=== PATIENT | female | born 1940 | race Caucasian/White ===

== ENCOUNTER → 2016-07-16 | Outpatient (CLI) | payer OTHER ==
[~2016-07-16] MED LIST: ATOR10TA88 PO; CPR500 PO; DONE1TAB26 PO; LEVO125T72 PO; MELO7.5T5 PO; MEMA10TA PO; METF1000 PO; RMR15 PO
[2016-07-16 16:41] LABS: HEMATOCRIT 41.2 % (37-47); MEAN CORPUSCULAR HEMOGLOBIN 31.2 pg (25-34); MEAN CORPUSCULAR HGB CONC 33.5 g/dl (32-36); MEAN PLATELET VOLUME 10.4 fL (7.4-10.4); PLATELET COUNT 223 K/uL (130-400); RED BLOOD COUNT 4.43 M/uL (4.2-5.4)
[2016-07-16 16:50] LABS: ALT/SGPT 21 U/L (12-78); AST/SGOT 12 U/L (15-37); BLOOD UREA NITROGEN 13 mg/dl (7-18); BUN/CREATININE RATIO 18.9 (10-20); CALCIUM 9.4 mg/dl (8.5-10.1); CARBON DIOXIDE 29 mmol/L (21-32); CHLORIDE 107 mmol/L (98-107); CREATININE 0.71 mg/dl (0.60-1.20); GLUCOSE 111 mg/dl (70-99); POTASSIUM 4.5 mmol/L (3.5-5.1); SODIUM 142 mmol/L (136-145)
[2016-07-16 16:59] LABS: ALB/GLOB RATIO 1.1 (0.9-2); ALKALINE PHOSPHATASE 87 U/L (45-117); CHOLESTEROL 210 mg/dl (0-200); CHOLESTEROL/HDL RATIO 2.6; HDL CHOLESTEROL 81 mg/dl; LDL CHOLESTEROL CALCULATED 90 mg/dl; TRIGLYCERIDES 195 mg/dl (0-150); VERY LOW DENSITY LIPOPROT CALC 39 mg/dl
[2016-07-17 06:31] LABS: ESTIMATED AVERAGE GLUCOSE 157 mg/dl; HA1C FLAG Normal (Normal)
== END | disposition home or self-care (01) ==
LOC: C.LABBFT 16:28
PROVIDERS: ATTEND Internal Medicine
DX: E03.9 Hypothyroidism, unspecified (principal); E78.5 Hyperlipidemia, unspecified; E11.9 Type 2 diabetes mellitus without complications

== ENCOUNTER → 2016-10-29 | Outpatient (CLI) | payer OTHER ==
[~2016-10-29] MED LIST changes: +ATOR10TA82 PO; -ATOR10TA88 PO
[2016-10-29 18:41] LABS: URINE APPEARANCE CLEAR (CLEAR); URINE BILIRUBIN NEG (NEG); URINE COLOR YELLOW; URINE NITRITE NEG (NEG); URINE SPECIFIC GRAVITY 1.007 (1.000-1.030); UROBILINOGEN NEG (NEG)
[2016-10-29 18:50] LABS: MANUAL MICROSCOPIC REQUIRED? NO; REVIEW REQ? NO
== END | disposition home or self-care (01) ==
LOC: C.LABSPEC 17:58
PROVIDERS: ATTEND Physician Assistant Medical
DX: N39.0 Urinary tract infection, site not specified (principal)

== ENCOUNTER → 2017-04-13 | Outpatient (CLI) | payer OTHER ==
[~2017-04-13] MED LIST changes: -ATOR10TA82 PO; +ATOR10TA88 PO
[2017-04-13 17:48] LABS: URINE APPEARANCE TURBID (CLEAR); URINE BILIRUBIN NEG (NEG); URINE COLOR DK YELLOW; URINE EPITHELIAL CELL AUTO >30 /lpf (0-5); URINE NITRITE NEG (NEG); URINE SPECIFIC GRAVITY 1.036 (1.000-1.030); UROBILINOGEN NEG (NEG); ZZUR CULT IF INDIC CLEAN CATCH YES
[2017-04-13 17:57] LABS: MANUAL MICROSCOPIC REQUIRED? NO; REVIEW REQ? YES
[2017-04-13 17:57] LABS: ALT/SGPT 25 U/L (12-78); BLOOD UREA NITROGEN 9 mg/dl (7-18); BUN/CREATININE RATIO 9.9 (10-20); CALCIUM 9.6 mg/dl (8.5-10.1); CARBON DIOXIDE 25 mmol/L (21-32); CHLORIDE 104 mmol/L (98-107); CREATININE 0.87 mg/dl (0.60-1.20); GLUCOSE 243 mg/dl (70-99); POTASSIUM 4.3 mmol/L (3.5-5.1); SODIUM 139 mmol/L (136-145)
[2017-04-13 18:00] LABS: ALKALINE PHOSPHATASE 106 U/L (45-117); AST/SGOT 20 U/L (15-37)
== END | disposition home or self-care (01) ==
LOC: C.LABBFT 11:47
PROVIDERS: ATTEND Physician Assistant Medical
DX: F44.89 Other dissociative and conversion disorders (principal)

== ENCOUNTER → 2017-04-16 | Outpatient (CLI) | payer OTHER | END | disposition home or self-care (01) | LOC: C.LABBFT 13:07 | PROVIDERS: ATTEND Internal Medicine | DX: N39.0 Urinary tract infection, site not specified (principal); E11.9 Type 2 diabetes mellitus without complications ==

== ENCOUNTER → 2017-04-28 | Outpatient (CLI) | payer OTHER ==
--- NOTE | 2017-04-28 13:45 | DIAGNOSTIC IMAGING REPORT ---
VENOUS DOPP LOWER EXT UNILAT HISTORY: 76 years-old Female M79.89 Left leg swellingLEFT LEG per pt's [id number] acute left leg swelling COMPARISON: None available TECHNIQUE: Multiple real-time sonographic images of the left lower extremity deep venous system was obtained assessing grayscale appearance, color and spectral flow. FINDINGS: There is normal compressibility, flow, augmentation and phasicity of the left lower extremity deep venous system. IMPRESSION: No sonographic evidence of deep venous thrombosis within the left lower extremity. The above report was generated using voice recognition software. It may contain grammatical, syntax or spelling errors. Electronically signed by: Markie García M.D. 04/28/2017 1:43 PM Dictated Date/Time: 04/28/2017 1:42 PM
== END | disposition home or self-care (01) ==
LOC: C.ULTR 13:13
PROVIDERS: ATTEND Internal Medicine
DX: M79.89 Other specified soft tissue disorders (principal)

== ENCOUNTER → 2017-05-05 | Outpatient (CLI) | payer OTHER ==
[2017-05-05 17:18] LABS: URINE APPEARANCE CLOUDY (CLEAR); URINE BILIRUBIN NEG (NEG); URINE COLOR YELLOW; URINE EPITHELIAL CELL AUTO >30 /lpf (0-5); URINE NITRITE POS (NEG); URINE SPECIFIC GRAVITY 1.039 (1.000-1.030); UROBILINOGEN NEG (NEG)
[2017-05-05 17:37] LABS: MANUAL MICROSCOPIC REQUIRED? NO; REVIEW REQ? NO
== END | disposition home or self-care (01) ==
LOC: C.LAB 14:44
PROVIDERS: ATTEND Internal Medicine
DX: N39.0 Urinary tract infection, site not specified (principal)

== ENCOUNTER 2017-07-27 14:33 | Emergency (ER) | payer OTHER ==
[~2017-07-27 14:33] MED LIST changes: +ATOR10TA82 PO; -ATOR10TA88 PO; -MELO7.5T5 PO
[2017-07-27 14:41] VITALS: TEMP 36.7
--- NOTE | 2017-07-27 14:49 | EMERGENCY ROOM VISIT NOTE ---
History Report prepared by Adriana: Tam Kay Under the Supervision of: Dr. Yaritza Kaplan M.D. First contact with patient: 14:37 Chief Complaint: URINARY SYMPTOMS Stated Complaint: POSS. UTI History of Present Illness The patient is a 76 year old female diabetic with a history of Alzheimer's who presents to the Emergency Room with a worsening altered mental status since this morning. Per the patient's caregiver, the patient was hard to wake up this morning. The patient would open her eyes but would not respond to anything. However, the patient is nonverbal at baseline. She was noted to intermittently jerk her extremities. When she did awaken more, she became "extremely combative ". Per the patient's family, the patient had a UTI the beginning of last year, but the patient was nothing like she has been today. The patient's caregiver was unable to give the patient any of her medications today, because the patient has not been cooperative to drink or eat anything. The patient was also noted to be completely saturated in urine and stool, but the patient is normally incontinent. Any recent falls were denied on behalf of the patient. The patient has no cancer history. Source of History: family, caregiver Onset: This morning Position: other (global - AMS) Symptom Intensity: hard to arouse but that is baseline Quality: other (became combative at staff) Timing: worsening Note: Associated symptoms: Recent falls denied. Review of Systems ROS limited secondary to patient's mental status. Past Medical & Surgical Medical Problems: (1) Altered mental status (2) Diabetes (3) Influenza A (4) UTI (urinary tract infection) Surgical Problems: (1) S/P hernia repair Family History Diabetes mellitus Social History Smoking Status: Never Smoker Drug Use: none Marital Status: Housing Status: lives with significant other Occupation Status: retired Current/Historical Medications Scheduled Atorvastatin (Lipitor), 10 MG PO DAILY Calcium Carbonate-Vitamin D W/ (Caltrate 600 Plus), 1 TAB PO BID Donepezil Hydrochloride (Donepezil Hcl), 10 MG PO DAILY Gabapentin (Gabapentin), 300 MG PO HS Levothyroxine Sodium (Synthroid), 125 MCG PO DAILY Meloxicam (Mobic), 7.5 MG PO DAILY Memantine Hcl (Namenda), 10 MG PO BID Metformin Hcl (Glucophage), 1,000 MG PO QAM Scheduled PRN Lorazepam (Lorazepam), 0.5 MG PO Q6 PRN for Anxiety Olanzapine (Zyprexa Zydis Odt), 2.5 MG PO BID PRN for agitation Tramadol (Ultram), 50 MG PO Q6 PRN for Pain Allergies Coded Allergies: Sulfa Antibiotics (Verified Allergy, Mild, "SULFA DRUGS": RASH, 03/31/16) Physical Exam Vital Signs Date Time Temp Pulse Resp B/P (MAP) Pulse Ox O2 Delivery O2 Flow Rate FiO2 07/27/17 18:18 86 20 167/73 96 Room Air 07/27/17 17:00 76 20 146/90 98 Room Air 07/27/17 16:13 90 07/27/17 15:55 92 20 151/77 97 Room Air 07/27/17 14:41 36.7 73 18 151/77 97 Room Air Physical Exam Vital signs reviewed. General: Chronically ill-appearing 76 year old female, elderly, nonverbal, moans , unable to follow commands, will not cooperate with exam. HEENT: No scleral icterus, PERRLA, neck supple. Atraumatic. Cardiovascular: Regular rate and rhythm, no extra sounds. Pulmonary: Clear to auscultation bilaterally, normal work of breathing. Abdomen: Soft, nontender, nondistended, positive bowel sounds. Musculoskeletal: Atraumatic, no peripheral edema. Neurologic: Patient is nonverbal, moans, unable to follow commands. Skin: Warm, dry, no rash Medical Decision & Procedures ER Provider Diagnostic Interpretation: Radiology results as stated below per my review and radiologist interpretation: CHEST ONE VIEW PORTABLE CLINICAL HISTORY: Altered mental status. COMPARISON STUDY: Chest radiograph March 28, 2016. FINDINGS: Lung volumes are at the lower limits of normal. There is no pneumothorax or pleural effusion. There is no consolidation to suggest pneumonia. Moderate cardiomegaly is noted. IMPRESSION: 1. No acute cardiopulmonary findings. 2. Moderate cardiomegaly. Electronically signed by: Wood Bennett M.D. 07/27/2017 3:20 PM Dictated Date/Time: 07/27/2017 3:[address] HEAD WITHOUT CONTRAST (CT) CLINICAL HISTORY: Acute change in mental status COMPARISON STUDY: 03/29/2016 TECHNIQUE: Axial CT of the brain is performed from the vertex to the skull base. IV contrast was not administered for this examination. A dose lowering technique was utilized adhering to the principles of ALARA. CT DOSE: 1228.53 mGy.cm FINDINGS: No intra or extra-axial mass lesions are visualized. There is no CT evidence of acute cortical infarction. There is no evidence of midline shift. There is no acute hemorrhage. No calvarial fractures are visualized. There are patchy white matter hypodensities likely on a small vessel basis. There is no evidence of pathologic ventricular dilatation. There is no evidence of acute sinusitis IMPRESSION: No acute intracranial findings Electronically signed by: Vijay Jc M.D. 07/27/2017 4:58 PM Dictated Date/Time: 07/27/2017 4:57 PM Laboratory Results 07/27/17 15:20 Red Blood Count 4.44, Mean Corpuscular Volume 94.4, Mean Corpuscular Hemoglobin 31.5, Mean Corpuscular Hemoglobin Concent 33.4, Mean Platelet Volume 10.3, Neutrophils (%) (Auto) 57.4, Lymphocytes (%) (Auto) 31.5, Monocytes (%) (Auto) 8.6, Eosinophils (%) (Auto) 1.7, Basophils (%) (Auto) 0.4, Neutrophils # (Auto) 4.39, Lymphocytes # (Auto) 2.41, Monocytes # (Auto) 0.66, Eosinophils # (Auto) 0.13, Basophils # (Auto) 0.03 07/27/17 15:20 Test 07/27/17 15:20 07/27/17 17:10 White Blood Count 7.65 K/uL (4.8-10.8) Red Blood Count 4.44 M/uL (4.2-5.4) Hemoglobin 14.0 g/dL (12.0-16.0) Hematocrit 41.9 % (37-47) Mean Corpuscular Volume 94.4 fL (80-100) Mean Corpuscular Hemoglobin 31.5 pg (25-34) Mean Corpuscular Hemoglobin Concent 33.4 g/dl (32-36) Platelet Count 196 K/uL (130-400) Mean Platelet Volume 10.3 fL (7.4-10.4) Neutrophils (%) (Auto) 57.4 % Lymphocytes (%) (Auto) 31.5 % Monocytes (%) (Auto) 8.6 % Eosinophils (%) (Auto) 1.7 % Basophils (%) (Auto) 0.4 % Neutrophils # (Auto) 4.39 K/uL (1.4-6.5) Lymphocytes # (Auto) 2.41 K/uL (1.2-3.4) Monocytes # (Auto) 0.66 K/uL (0.11-0.59) Eosinophils # (Auto) 0.13 K/uL (0-0.5) Basophils # (Auto) 0.03 K/uL (0-0.2) RDW Standard Deviation 41.7 fL (36.4-46.3) RDW Coefficient of Variation 12.2 % (11.5-14.5) Immature Granulocyte % (Auto) 0.4 % Immature Granulocyte # (Auto) 0.03 K/uL (0.00-0.02) Anion Gap 6.0 mmol/L (3-11) Estimated GFR () 102.2 Estimated GFR (Non- 88.2 BUN/Creatinine Ratio 9.8 (10-20) Calcium Level 9.7 mg/dl (8.5-10.1) Magnesium Level 1.8 mg/dl (1.8-2.4) Total Bilirubin 0.6 mg/dl (0.2-1) Direct Bilirubin 0.2 mg/dl (0-0.2) Aspartate Amino Transf (AST/SGOT) 17 U/L (15-37) Alanine Aminotransferase (ALT/SGPT) 27 U/L (12-78) Alkaline Phosphatase 96 U/L (45-117) Total Protein 6.7 gm/dl (6.4-8.2) Albumin 3.4 gm/dl (3.4-5.0) Thyroid Stimulating Hormone (TSH) 0.020 uIu/ml (0.300-4.500) Free Thyroxine 1.57 ng/dl (0.80-1.60) Urine Color YELLOW Urine Appearance CLEAR (CLEAR) Urine pH 5.5 (4.5-7.5) Urine Specific [place] 1.012 (1.000-1.030) Urine Protein NEG (NEG) Urine Glucose (UA) NEG (NEG) Urine Ketones NEG (NEG) Urine Occult Blood NEG (NEG) Urine Nitrite NEG (NEG) Urine Bilirubin NEG (NEG) Urine Urobilinogen NEG (NEG) Urine Leukocyte Esterase NEG (NEG) Laboratory results per my review. Medications Administered Medications (Trade) Dose Ordered Sig/Ronit Route Start Time Stop Time Status Last Admin Dose Admin Haloperidol Lactate (Haldol Inj) 2.5 mg NOW STAT IV 07/27/17 15:28 07/27/17 15:30 DC 07/27/17 15:35 2.5 MG Lorazepam (Ativan Inj) 0.5 mg NOW STAT IV 07/27/17 15:28 07/27/17 15:30 DC 07/27/17 15:36 0.5 MG Olanzapine (Zyprexa Tab) 2.5 mg NOW STAT PO 07/27/17 17:57 07/27/17 18:00 DC 07/27/17 18:15 2.5 MG ECG Indication: altered mental status Rate (beats per minute): 66 Rhythm: normal sinus Findings: no acute ischemic change, left axis deviation, no ectopy, other ( poor quality baseline for interpretation) ED Course 1442: Past medical records reviewed. The patient was evaluated in room B2. A limited history and physical examination was performed. 1528: Ordered Ativan Inj 0.5 mg IV, Haldol Inj 2.5 mg IV. 1755: I discussed the patient with Dr. Davis - [facility] - he recommend Zyprexa 2.5 mg PO/BID and he will see the patient in the office. 1757: Ordered Zyprexa Tab 2.5 mg PO. 1800: Upon reevaluation, the patient appeared to be resting comfortably. I discussed findings with her family and caregiver. They verbalized agreement of the treatment plan. The patient was discharged home. Medical Decision Differential diagnosis: Etiologies such as metabolic, infection, hypoglycemia, electrolyte abnormalities , cardiac sources, intracerebral event, toxicologic, neurologic, as well as others were entertained. This patient was evaluated and appeared to be in no significant distress. Patient was evaluated but unable to cooperate with exam largely. CT scan of the head was performed and is negative for acute intracranial abnormality. Laboratory work and urinalysis are unrevealing. The patient did require IV Haldol 2.5 mg and IV Ativan 0.5 mg with significant improvement in agitation. After several hours in the emergency department, the patient seemed to be improved. Patient's daughter seemed comfortable with the plan for discharge to home. She has a caregiver coming in this evening. Patient was discussed with the PCP, Dr. Davis. He has recommended Zyprexa 2.5 mg by mouth twice a day when necessary. Patient was given 1 dose now in the emergency department. I did express the plan to the patient's daughter who agrees. If symptoms do not improve or she becomes too difficult to manage at home, they will return to the ER for possible Mary psych evaluation. Medication Reconcilliation Current Medication List: was personally reviewed by me Blood Pressure Screening Patient's blood pressure: Elevated blood pressure Blood pressure disposition: Elevated BP felt to be situational Consults Time Called: 1749 Consulting Physician: Dr. [facility] family medicine Returned Call: [phone] I discussed the patient with Dr. Susan PATINO family medicine - he recommend Zyprexa 2.5 mg PO/BID and he will see the patient in the office. Impression Primary Impression: Agitation Scribe Attestation The scribe's documentation has been prepared under my direction and personally reviewed by me in its entirety. I confirm that the note above accurately reflects all work, treatment, procedures, and medical decision making performed by me. Departure Information Dispostion Home / Self-Care Prescriptions Olanzapine (Zyprexa Zydis Odt) 5 Mg Jaron 2.5 MG PO BID Y for agitation, #30 JARON Prov: Yaritza Kaplan M.D. 07/27/17 Referrals Asim Davis M.D. (PCP) Patient Instructions My [facility] Additional Instructions Diagnosis: Agitation Zyprexa 2.5 mg (1/2 tab) twice daily as needed for agitation. This medication will dissolve in the mouth. Follow-up with Dr. Davis's office this week for reevaluation. Return to the ER for worsening of symptoms or any medical concerns.
--- NOTE | 2017-07-27 15:22 | DIAGNOSTIC IMAGING REPORT ---
CHEST ONE VIEW PORTABLE CLINICAL HISTORY: Altered mental status. COMPARISON STUDY: Chest radiograph March 28, 2016. FINDINGS: Lung volumes are at the lower limits of normal. There is no pneumothorax or pleural effusion. There is no consolidation to suggest pneumonia. Moderate cardiomegaly is noted. IMPRESSION: 1. No acute cardiopulmonary findings. 2. Moderate cardiomegaly. Electronically signed by: Wood Bennett M.D. 07/27/2017 3:20 PM Dictated Date/Time: 07/27/2017 3:20 PM
[2017-07-27] MEDS ORDERED: HALOPERIDOL LACTATE 5 MG/ML 1 ML VIAL IV STA (15:28)
[2017-07-27] MEDS ORDERED: LORAZEPAM 2 MG/ML 1 ML VIAL IV STA (15:28)
[2017-07-27 15:48] LABS: BASO % 0.4 %; BASO ABS # 0.03 K/uL (0-0.2); EOS % 1.7 %; EOS ABS # 0.13 K/uL (0-0.5); HEMATOCRIT 41.9 % (37-47); IG# 0.03 K/uL (0.00-0.02); LYMPH % 31.5 %; LYMPH ABS # 2.41 K/uL (1.2-3.4); MEAN CELL VOLUME 94.4 fL (80-100); MEAN CORPUSCULAR HEMOGLOBIN 31.5 pg (25-34); MEAN CORPUSCULAR HGB CONC 33.4 g/dl (32-36); MEAN PLATELET VOLUME 10.3 fL (7.4-10.4); MONO % 8.6 %; MONO ABS # 0.66 K/uL (0.11-0.59); NEUT % 57.4 %; NEUT ABS # 4.39 K/uL (1.4-6.5); PLATELET COUNT 196 K/uL (130-400); RED CELL DISTRIBUTION WIDTH CV 12.2 % (11.5-14.5); RED CELL DISTRIBUTION WIDTH SD 41.7 fL (36.4-46.3); WHITE BLOOD COUNT 7.65 K/uL (4.8-10.8)
[2017-07-27] MEDS ORDERED: TRAM-10 PO (16:03)
[2017-07-27] MEDS ORDERED: METF-384 PO (16:03)
[2017-07-27] MEDS ORDERED: GABA1CAP4 PO (16:03)
[2017-07-27] MEDS ORDERED: ATV5X PO (16:03)
[2017-07-27] MEDS ORDERED: CALCTAB7 PO (16:03)
[2017-07-27] MEDS ORDERED: SYN125 PO (16:03)
[2017-07-27 16:13] LABS: ALBUMIN 3.4 gm/dl (3.4-5.0); ALT/SGPT 27 U/L (12-78); AST/SGOT 17 U/L (15-37); BLOOD UREA NITROGEN 6 mg/dl (7-18); CALCIUM 9.7 mg/dl (8.5-10.1); CARBON DIOXIDE 31 mmol/L (21-32); CREATININE 0.62 mg/dl (0.60-1.20); GLUCOSE 173 mg/dl (70-99); POTASSIUM 4.3 mmol/L (3.5-5.1); SODIUM 142 mmol/L (136-145)
[2017-07-27 16:24] LABS: ALKALINE PHOSPHATASE 96 U/L (45-117); TOTAL PROTEIN 6.7 gm/dl (6.4-8.2)
--- NOTE | 2017-07-27 16:59 | DIAGNOSTIC IMAGING REPORT ---
CT HEAD WITHOUT CONTRAST (CT) CLINICAL HISTORY: Acute change in mental status COMPARISON STUDY: 03/29/2016 TECHNIQUE: Axial CT of the brain is performed from the vertex to the skull base. IV contrast was not administered for this examination. A dose lowering technique was utilized adhering to the principles of ALARA. CT DOSE: 1228.53 mGy.cm FINDINGS: No intra or extra-axial mass lesions are visualized. There is no CT evidence of acute cortical infarction. There is no evidence of midline shift. There is no acute hemorrhage. No calvarial fractures are visualized. There are patchy white matter hypodensities likely on a small vessel basis. There is no evidence of pathologic ventricular dilatation. There is no evidence of acute sinusitis IMPRESSION: No acute intracranial findings Electronically signed by: Vijay Jc M.D. 07/27/2017 4:58 PM Dictated Date/Time: 07/27/2017 4:57 PM
[2017-07-27] MEDS ORDERED: OLANZAPINE 2.5 MG TAB PO STA (17:57)
[2017-07-27] MEDS ORDERED: OLAN5TAB3 PO ×2 (18:11→18:27)
[2017-07-27 18:18] VITALS: BP 167/73; PULSE 86; O2SAT 96
[2017-07-27] MEDS ORDERED: MELO7.5T5 PO (23:02)
== END 2017-07-27 18:32 | disposition home or self-care (01) ==
LOC: EDBD 14:33 → C.EDB 14:34
DX: G30.9 Alzheimer's disease, unspecified (principal); F02.80 Dementia in other diseases classified elsewhere, unspecified severity, without behavioral disturbance, psychotic disturbance, mood disturbance, and anxiety; E11.9 Type 2 diabetes mellitus without complications; R03.0 Elevated blood-pressure reading, without diagnosis of hypertension; Z79.84 Long term (current) use of oral hypoglycemic drugs; Z83.3 Family history of diabetes mellitus

== ENCOUNTER → 2017-08-23 | Outpatient (CLI) | payer OTHER ==
[~2017-08-23] MED LIST changes: +ASPEC81 PO; +ATV5X PO; +CALCTAB7 PO; +CIPR250T3 PO; -CPR500 PO; +GABA-1219 PO; -LEVO125T72 PO; +MELO7.5T5 PO; +MEMA1TAB4 PO; +METF-384 PO; -METF1000 PO; +OLAN5TAB3 PO; +QUET1TAB7 PO; +QUET1TAB91 PO; -RMR15 PO; +SYN125 PO; +TRAM-10 PO
== END | disposition home or self-care (01) ==
LOC: C.LAB 13:28
PROVIDERS: ATTEND Internal Medicine
DX: N39.0 Urinary tract infection, site not specified (principal)

== ENCOUNTER 2017-08-27 10:23 | Inpatient (IN) | payer OTHER ==
[~2017-08-27] VITALS: Ht 152.4 cm; Wt 77.9 kg
[~2017-08-27 10:23] MED LIST changes: -ASPEC81 PO; -ATOR10TA82 PO; -CIPR250T3 PO; -GABA-1219 PO; -MELO7.5T5 PO; -MEMA1TAB4 PO; -QUET1TAB7 PO; -QUET1TAB91 PO; -SYN125 PO
[2017-08-27] MEDS ORDERED: SODIUM CHLORIDE 0.9% 500ML 500 ML IV STA (11:16)
[2017-08-27] MEDS ORDERED: HALOPERIDOL 5 MG TAB PO STA ×2 (11:16→15:00)
--- NOTE | 2017-08-27 11:40 | DIAGNOSTIC IMAGING REPORT ---
CHEST ONE VIEW PORTABLE CLINICAL HISTORY: 77 years-old Female presenting with Pt c/o AMS. TECHNIQUE: Portable upright AP view of the chest was obtained. COMPARISON: 07/27/2017. FINDINGS: Atherosclerosis of aortic arch. Cardiac silhouette enlarged. Mildly low lung volumes with hypoventilatory changes. No focal opacity. Minimal blunting of the left costophrenic angle. No pneumothorax. Degenerative changes and scoliotic curvature of the thoracolumbar spine. Upper abdomen normal. IMPRESSION: 1. Mildly low lung volumes with hypoventilatory changes similar to prior exam. 2. Cardiomegaly. 3. No convincing evidence of acute cardiopulmonary disease. Electronically signed by: Bennett Serra M.D. 08/27/2017 11:38 AM Dictated Date/Time: 08/27/2017 11:35 AM
--- NOTE | 2017-08-27 12:09 | EMERGENCY ROOM VISIT NOTE ---
History Report prepared by Adriana: Cindy Duke Under the Supervision of: Dr. Luis Larsen M.D. First contact with patient: 11:01 Chief Complaint: URINARY SYMPTOMS Stated Complaint: MENTAL STATUS CHANGE History of Present Illness The patient is a 77 year old female who presents to the Emergency Room with complaints of a persistent altered mental status that began a few days ago. The patient's daughter states that the patient saw her PCP on 08/11/17, because the patient was believed to have a UTI. The patient was given antibiotics and ever since she has been taking them she has been very confused, disoriented, feeling cold, barely urinating, experiencing muscle spasms, and has had no bowel movements. Source of History: patient Onset: a few days ago Position: other (mental) Quality: other (altered mental status) Timing: other (persistent) Note: Associated symptoms include: very confused, disoriented, feeling cold, barely urinating, experiencing muscle spasms, and has had no bowel movements. Review of Systems See HPI for pertinent positives & negatives. A total of 10 systems reviewed and were otherwise negative. Past Medical & Surgical Medical Problems: (1) Altered mental status (2) Change in mental status (3) Diabetes (4) Influenza A (5) UTI (urinary tract infection) Surgical Problems: (1) S/P hernia repair Family History Diabetes mellitus Social History Smoking Status: Never Smoker Drug Use: none Marital Status: Housing Status: lives with significant other Occupation Status: retired Current/Historical Medications Scheduled Atorvastatin (Lipitor), 10 MG PO DAILY Calcium Carbonate-Vitamin D W/ (Caltrate 600 Plus), 1 TAB PO BID Ciprofloxacin (Cipro), 250 MG PO BID Donepezil Hydrochloride (Donepezil Hcl), 10 MG PO DAILY Gabapentin (Gabapentin), 300 MG PO HS Levothyroxine Sodium (Synthroid), 125 MCG PO DAILY Meloxicam (Mobic), 7.5 MG PO DAILY Memantine Hcl (Namenda), 10 MG PO BID Metformin Hcl (Glucophage), 1,000 MG PO QAM Scheduled PRN Lorazepam (Lorazepam), 0.5 MG PO Q6 PRN for Anxiety Olanzapine (Zyprexa Zydis Odt), 2.5 MG PO BID PRN for agitation Tramadol (Ultram), 50 MG PO Q6 PRN for Pain Allergies Coded Allergies: Sulfa Antibiotics (Verified Allergy, Mild, "SULFA DRUGS": RASH, 08/27/17) Physical Exam Vital Signs Date Time Temp Pulse Resp B/P (MAP) Pulse Ox O2 Delivery O2 Flow Rate FiO2 08/27/17 17:18 99 18 98 Room Air 08/27/17 15:41 36.3 74 20 97 Room Air 08/27/17 13:50 72 20 138/88 97 Room Air 08/27/17 13:05 71 08/27/17 12:25 65 20 145/79 96 Room Air 70 138/88 08/27/17 12:15 96 Room Air 08/27/17 10:56 36.3 68 20 146/81 97 Room Air Physical Exam GENERAL: Patient is a healthy-appearing well-nourished female. Mumbling and acutely confused. Her speech is gargled. Follows commands. HEAD: Normocephalic atraumatic EYES: Ocular movements intact pupils equal and react to light OROPHARYNX mucous membranes are moist no exudates present no erythema or edema present NECK: Supple no nuchal rigidity CHEST: Good equal expansion LUNGS: Clear and equal to auscultation CARDIAC: Normal S1 and S2 ABDOMEN: Soft nontender no guarding BACK: No CVA tenderness EXTREMITIES: No pain upon palpation normal muscle strength in all groups no clubbing cyanosis or edema NEURO: Patient is following commands and answering questions appropriately. Alert and oriented x3 Cranial Nerves 2-12 grossly intact Medical Decision & Procedures ER Provider Diagnostic Interpretation: X-ray results as stated below per interpretation by me and the radiologist: CHEST ONE VIEW PORTABLE CLINICAL HISTORY: 77 years-old Female presenting with Pt c/o AMS. TECHNIQUE: Portable upright AP view of the chest was obtained. COMPARISON: 07/27/2017. FINDINGS: Atherosclerosis of aortic arch. Cardiac silhouette enlarged. Mildly low lung volumes with hypoventilatory changes. No focal opacity. Minimal blunting of the left costophrenic angle. No pneumothorax. Degenerative changes and scoliotic curvature of the thoracolumbar spine. Upper abdomen normal. IMPRESSION: 1. Mildly low lung volumes with hypoventilatory changes similar to prior exam. 2. Cardiomegaly. 3. No convincing evidence of acute cardiopulmonary disease. Electronically signed by: Bennett Serra M.D. 08/27/2017 11:38 AM Dictated Date/Time: 08/27/2017 11:[address] NON[address]AST CT DOSE: 1418.95 mGy.cm HISTORY: Altered mental status. TECHNIQUE: Multiaxial CT images of the head were performed without the use of intravenous contrast. Automated exposure control was utilized for this study. A dose lowering technique was utilized adhering to the principles of ALARA. Comparison: Head CT 07/27/2017. Findings: The paranasal sinuses and mastoid air cells are clear. The calvarium and skull base are intact. There is no mass, hematoma, midline shift, acute infarct. White matter hypodensity is nonspecific but suggestive of microvascular ischemic change. The ventricles and sulci demonstrate mild age-related involutional changes. Stable 8 mm calcification along the left tentorium. Impression: No significant change compared to the prior study. No acute intracranial abnormality. Electronically signed by: Alexandr Hollingsworth M.D. 08/27/2017 1:43 PM Dictated Date/Time: 08/27/2017 1:29 PM Laboratory Results Test 08/27/17 12:30 08/27/17 12:45 08/27/17 13:08 08/27/17 13:20 RDW Standard Deviation 41.5 fL (36.4-46.3) RDW Coefficient of Variation 12.2 % (11.5-14.5) White Blood Count 5.87 K/uL (4.8-10.8) Red Blood Count 4.39 M/uL (4.2-5.4) Hemoglobin 12.6 g/dL (12.0-16.0) Hematocrit 41.0 % (37-47) Mean Corpuscular Volume 93.4 fL (80-100) Mean Corpuscular Hemoglobin 28.7 pg (25-34) Mean Corpuscular Hemoglobin Concent 30.7 g/dl (32-36) Platelet Count 123 K/uL (130-400) Mean Platelet Volume 11.0 fL (7.4-10.4) Neutrophils (%) (Auto) 60.0 % Lymphocytes (%) (Auto) 28.6 % Monocytes (%) (Auto) 8.9 % Eosinophils (%) (Auto) 1.7 % Basophils (%) (Auto) 0.3 % Neutrophils # (Auto) 3.52 K/uL (1.4-6.5) Lymphocytes # (Auto) 1.68 K/uL (1.2-3.4) Monocytes # (Auto) 0.52 K/uL (0.11-0.59) Eosinophils # (Auto) 0.10 K/uL (0-0.5) Basophils # (Auto) 0.02 K/uL (0-0.2) Immature Granulocyte % (Auto) 0.5 % Immature Granulocyte # (Auto) 0.03 K/uL (0.00-0.02) Est Creatinine Clear Calc Drug Dose 61.3 ml/min Creatine Kinase MB 1.0 ng/ml (0.5-3.6) Creatine Kinase MB Ratio (0-3.0) Troponin I < 0.015 ng/ml (0-0.045) Thyroid Stimulating Hormone (TSH) 0.222 uIu/ml (0.300-4.500) Urine Color YELLOW Urine Appearance CLEAR (CLEAR) Urine pH 5.0 (4.5-7.5) Urine Specific [place] 1.018 (1.000-1.030) Urine Protein NEG (NEG) Urine Glucose (UA) 3+ (NEG) Urine Ketones NEG (NEG) Urine Occult Blood NEG (NEG) Urine Nitrite NEG (NEG) Urine Bilirubin NEG (NEG) Urine Urobilinogen NEG (NEG) Urine Leukocyte Esterase NEG (NEG) Influenza Type A Antigen Neg for Influ A (NEG) Influenza Type B Antigen Neg for Influ B (NEG) Prothrombin Time 10.7 SECONDS (9.0-12.0) Prothromb Time International Ratio 1.0 (0.9-1.1) Activated Partial Thromboplast Time 22.4 SECONDS (21.0-31.0) Partial Thromboplastin Ratio 0.9 Direct Bilirubin 0.2 mg/dl (0-0.2) Total Creatine Kinase 51 U/L (26-192) Labs reviewed by ED physician. Medications Administered Medications (Trade) Dose Ordered Sig/Ronit Route Start Time Stop Time Status Last Admin Dose Admin Haloperidol (Haldol Tab) 5 mg NOW STAT PO 08/27/17 11:16 08/27/17 11:18 DC 08/27/17 11:32 5 MG Sodium Chloride 500 ml @ 999 mls/hr Q31M STAT IV 08/27/17 11:16 08/27/17 11:46 DC 08/27/17 12:35 999 MLS/HR Haloperidol (Haldol Tab) 5 mg NOW STAT PO 08/27/17 15:00 08/27/17 15:06 DC 08/27/17 15:24 5 MG Lorazepam (Ativan Tab) 0.5 mg NOW STAT SL 08/27/17 15:00 08/27/17 15:06 DC 08/27/17 15:24 0.5 MG ECG Per My Interpretation Indication: altered mental status Rate (beats per minute): 65 Rhythm: normal sinus Findings: left axis deviation, other (No ST elevation or depression) Change: Patients electrocardiogram as interpreted by me. ED Course 1107: Past medical records reviewed. The patient was evaluated in room A2. A complete history and physical examination was performed. 1116: Ordered Sodium Chloride 500 ml @ 999 mls/hr IV and Haldol Tab 5mg PO. Medical Decision Differential diagnosis: Etiologies such as metabolic, infection, hypoglycemia, electrolyte abnormalities , cardiac sources, intracerebral event, toxicologic, neurologic, as well as others were entertained. This is a 77 rolled female who presents emergency Department with acute altered mental status change that has been ongoing over the past 2 weeks. Patient had been diagnosed with UTI and had been started on an antibiotic. Patient was given Haldol in the emergency department as she would not allow anybody to do anything. She is speaking nonsensical. After receiving the Haldol patient without laboratory work to be obtained as well as chest x-ray and urine. CAT scan of the head does not reveal any acute process and she does not have an elevation in her white blood count cell count. I suspect that the patient has underlying dementia. I did discuss the case with the hospitalist service who agreed to admit the patient. Family was in agreement with the treatment plan. Medication Reconcilliation Current Medication List: was personally reviewed by me Blood Pressure Screening Patient's blood pressure: Normal blood pressure Blood pressure disposition: Did not require urgent referral Impression Primary Impression: Altered mental status Scribe Attestation The scribe's documentation has been prepared under my direction and personally reviewed by me in its entirety. I confirm that the note above accurately reflects all work, treatment, procedures, and medical decision making performed by me. Departure Information Dispostion Home / Self-Care Referrals Asim Davis M.D. (PCP) Forms HOME CARE DOCUMENTATION FORM, IMPORTANT VISIT INFORMATION Patient Instructions My [facility] Problem Qualifiers Primary Impression: Altered mental status Altered mental status type: unspecified Qualified Codes: R41.82 - Altered mental status, unspecified
[2017-08-27] MEDS ORDERED: CIPR250T3 PO (12:22)
[2017-08-27 12:50] LABS: BASO % 0.3 %; BASO ABS # 0.02 K/uL (0-0.2); EOS % 1.7 %; HEMOGLOBIN 12.6 g/dL (12.0-16.0); IG# 0.03 K/uL (0.00-0.02); LYMPH % 28.6 %; LYMPH ABS # 1.68 K/uL (1.2-3.4); MEAN CELL VOLUME 93.4 fL (80-100); MEAN CORPUSCULAR HEMOGLOBIN 28.7 pg (25-34); MEAN CORPUSCULAR HGB CONC 30.7 g/dl (32-36); MONO % 8.9 %; MONO ABS # 0.52 K/uL (0.11-0.59); NEUT ABS # 3.52 K/uL (1.4-6.5); PLATELET COUNT 123 K/uL (130-400); RED CELL DISTRIBUTION WIDTH CV 12.2 % (11.5-14.5); RED CELL DISTRIBUTION WIDTH SD 41.5 fL (36.4-46.3); WHITE BLOOD COUNT 5.87 K/uL (4.8-10.8)
[2017-08-27 13:27] LABS: ALBUMIN 3.7 gm/dl (3.4-5.0); ALKALINE PHOSPHATASE 97 U/L (45-117); ALT/SGPT 27 U/L (12-78); BLOOD UREA NITROGEN 13 mg/dl (7-18); CARBON DIOXIDE 27 mmol/L (21-32); CREATININE 0.72 mg/dl (0.60-1.20); GLUCOSE 262 mg/dl (70-99); SODIUM 135 mmol/L (136-145); TOTAL PROTEIN 6.9 gm/dl (6.4-8.2)
[2017-08-27 13:28] LABS: CALCIUM 9.5 mg/dl (8.5-10.1)
[2017-08-27 13:40] LABS: PTT PATIENT 22.4 SECONDS (21.0-31.0)
--- NOTE | 2017-08-27 13:44 | DIAGNOSTIC IMAGING REPORT ---
HEAD CT NONCONTRAST CT DOSE: 1418.95 mGy.cm HISTORY: Altered mental status. TECHNIQUE: Multiaxial CT images of the head were performed without the use of intravenous contrast. Automated exposure control was utilized for this study. A dose lowering technique was utilized adhering to the principles of ALARA. Comparison: Head CT 07/27/2017. Findings: The paranasal sinuses and mastoid air cells are clear. The calvarium and skull base are intact. There is no mass, hematoma, midline shift, acute infarct. White matter hypodensity is nonspecific but suggestive of microvascular ischemic change. The ventricles and sulci demonstrate mild age-related involutional changes. Stable 8 mm calcification along the left tentorium. Impression: No significant change compared to the prior study. No acute intracranial abnormality. Electronically signed by: Alexandr Hollingsworth M.D. 08/27/2017 1:43 PM Dictated Date/Time: 08/27/2017 1:29 PM
[2017-08-27 13:45] LABS: POTASSIUM 4.2 mmol/L (3.5-5.1)
[2017-08-27 14:05] LABS: INFLUENZA B ANTIGEN Neg for Influ B (NEG)
[2017-08-27] MEDS ORDERED: LORAZEPAM 0.5 MG TAB SL STA (15:00)
[2017-08-27] MEDS ORDERED: HALOPERIDOL LACTATE 5 MG/ML 1 ML VIAL IM PRN (18:30)
[2017-08-27] MEDS ORDERED: ONDANSETRON INJ 2 MG/ML 2 ML VIAL IV PRN (18:30)
[2017-08-27] MEDS ORDERED: ACETAMINOPHEN 325 MG TAB PO PRN (18:30)
[2017-08-27] MEDS ORDERED: ALUMINUM/MAGNESIUM/SIMETH (MAALOX MAX) 30 ML UDC PO PRN (18:30)
[2017-08-27] MEDS ORDERED: ZOLPIDEM TARTRATE 5 MG TAB PO PRN ×2 (18:30)
[2017-08-27] MEDS ORDERED: POLYETHYLENE (MIRALAX) 17 GM PACK PO PRN (18:30)
[2017-08-27] MEDS ORDERED: MAGNESIUM HYDROXIDE SUSP 30 ML UDC PO PRN (18:30)
[2017-08-27 19:41] VITALS: BP 134/89; PULSE 79; TEMP 36.7; O2SAT 95; Ht 152.4 cm; Wt 77.9 kg
[2017-08-27] MEDS: MULTI-VITAMIN INFUSION INJ 10 ML, THIAMINE HCL INJ 100 MG, FoLIC ACID INJ 1 MG in SODIU... IV SCH (20:12)
[2017-08-27] MEDS ORDERED: GLUCOSE 10 TABS/TUBE PO PRN (20:45)
[2017-08-27] MEDS ORDERED: BISACODYL 10 MG SUPP PR PRN (20:45)
[2017-08-27] MEDS ORDERED: DEXTROSE 50% 50 ML SYR IV PRN (20:45)
[2017-08-27] MEDS ORDERED: OLANZAPINE ZYDIS 5 MG ORALLY DIS. TAB PO PRN (20:45)
[2017-08-27] MEDS ORDERED: GLUCOSE 40% GEL 15 GM TUBE PO PRN (20:45)
[2017-08-27] MEDS ORDERED: TRAMADOL HCL 50 MG TAB PO PRN (20:45)
[2017-08-27] MEDS ORDERED: LORAZEPAM 0.5 MG TAB PO PRN (20:45)
[2017-08-27] MEDS ORDERED: GLUCAGON FOR INJ 1 MG VIAL SQ PRN (20:45)
--- NOTE | 2017-08-27 20:46 | History and Physical ---
History & Physical Date & Time of Service: Aug 27, 2017 at 20:35 Chief Complaint: Change In Mental Status Primary Care Physician: Asim Davis M.D. History of Present Illness Source: family 77-year-old female with past medical history of hypothyroidism, dyslipidemia, diabetes mellitus on oral hypoglycemic was brought to the ED by family due to agitation and change in mental status. It appears that her heart since her about 6 months ago she started having severe depression and progressive dementia/Alzheimer. Her primary care physician started her on Namenda for Alzheimer's but then when her condition got much worse she started not taking the medicine regularly. It appears that her daughter had a nervous breakdown today and they decided to bring her to the hospital as the daughter was unable to care for her. Patient was confused and agitated required IM Haldol to calm down. Patient was recently treated for her UTI with Cipro which family thinks added to the confusion. Past Medical/Surgical History Medical Problems: (1) Diabetes Status: Chronic (2) Influenza A Status: Resolved Surgical Problems: (1) S/P hernia repair Status: Resolved Family History Diabetes mellitus Social History Smoking Status: Former Smoker Drug Use: none Marital Status: Occupational Status: retired Multi-Drug Resistant Organisms History of MDRO: No Allergies Coded Allergies: Sulfa Antibiotics (Verified Allergy, Mild, "SULFA DRUGS": RASH, 08/27/17) Home Medications Scheduled Atorvastatin (Lipitor), 10 MG PO DAILY Calcium Carbonate-Vitamin D W/ (Caltrate 600 Plus), 1 TAB PO BID Ciprofloxacin (Cipro), 250 MG PO BID Donepezil Hydrochloride (Donepezil Hcl), 10 MG PO DAILY Gabapentin (Gabapentin), 300 MG PO HS Levothyroxine Sodium (Synthroid), 125 MCG PO DAILY Meloxicam (Mobic), 7.5 MG PO DAILY Memantine Hcl (Namenda), 10 MG PO BID Metformin Hcl (Glucophage), 1,000 MG PO QAM Scheduled PRN Lorazepam (Lorazepam), 0.5 MG PO Q6 PRN for Anxiety Olanzapine (Zyprexa Zydis Odt), 2.5 MG PO BID PRN for agitation Tramadol (Ultram), 50 MG PO Q6 PRN for Pain Review of Systems Due to patient mental status review of system was unobtainable/unreliable We'll attempt to obtain review of system as needed from staff and family Physical Exam Vital Signs Date Time Temp Pulse Resp B/P (MAP) Pulse Ox O2 Delivery O2 Flow Rate FiO2 08/27/17 19:41 36.7 79 18 134/89 95 Room Air 08/27/17 19:00 97 18 96 Room Air 08/27/17 17:18 99 18 98 Room Air 08/27/17 15:41 36.3 74 20 97 Room Air 08/27/17 13:50 72 20 138/88 97 Room Air 08/27/17 13:05 71 08/27/17 12:25 65 20 145/79 96 Room Air 70 138/88 08/27/17 12:15 96 Room Air 08/27/17 10:56 36.3 68 20 146/81 97 Room Air Physical examination General patient appears to be comfortable, not in acute distress but very agitated and has an anxiety HEENT: Atraumatic , normocephalic /no jaundice /no pallor /anicteric /no dry mucous membrane /normal external ear inspection Neck: Supple /no swelling /central trach Heart: S1/S2 normal/regular rate and rhythm/no gallop /no rub /no murmur Lungs: Clear to auscultation bilaterally/normal chest with expansion/no rhonchi/ no rales/no wheezing/no use of accessory muscles of respiration Abdomen: Soft/nontender/no guarding/no rebound/no organomegaly/no pulsatile mass Musculoskeletal: No swelling/no edema/no tenderness/normal range of motion Neuro exam: Awake alert but disoriented, nonverbal, can follow simple command but can also do lots of purposeless movement/cranial nerves II through XII appear to be intact/sensation intact/moves all extremities/no abnormal movements Psychiatric evaluation: No depressed mood/normal affect Skin: No rash on exposed skin area/no erythema Extremity: Normal pulse/no pitting edema/no clubbing or cyanosis Endocrine/lymphatic: No obvious lymphadenopathy /no lymphedema Diagnostics Laboratory Results Results Past 24 Hours Test 08/27/17 12:30 08/27/17 12:45 08/27/17 13:08 08/27/17 13:20 Range/Units White Blood Count 5.87 4.8-10.8 K/uL Red Blood Count 4.39 4.2-5.4 M/uL Hemoglobin 12.6 12.0-16.0 g/dL Hematocrit 41.0 37-47 % Mean Corpuscular Volume 93.4 80-100 fL Mean Corpuscular Hemoglobin 28.7 25-34 pg Mean Corpuscular Hemoglobin Concent 30.7 32-36 g/dl Platelet Count 123 130-400 K/uL Mean Platelet Volume 11.0 7.4-10.4 fL Neutrophils (%) (Auto) 60.0 % Lymphocytes (%) (Auto) 28.6 % Monocytes (%) (Auto) 8.9 % Eosinophils (%) (Auto) 1.7 % Basophils (%) (Auto) 0.3 % Neutrophils # (Auto) 3.52 1.4-6.5 K/uL Lymphocytes # (Auto) 1.68 1.2-3.4 K/uL Monocytes # (Auto) 0.52 0.11-0.59 K/uL Eosinophils # (Auto) 0.10 0-0.5 K/uL Basophils # (Auto) 0.02 0-0.2 K/uL RDW Standard Deviation 41.5 36.4-46.3 fL RDW Coefficient of Variation 12.2 11.5-14.5 % Immature Granulocyte % (Auto) 0.5 % Immature Granulocyte # (Auto) 0.03 0.00-0.02 K/uL Sodium Level 135 136-145 mmol/L Potassium Level 4.2 3.5-5.1 mmol/L Chloride Level 100 98-107 mmol/L Carbon Dioxide Level 27 21-32 mmol/L Anion Gap 8.0 3-11 mmol/L Blood Urea Nitrogen 13 7-18 mg/dl Creatinine 0.72 0.60-1.20 mg/dl Est Creatinine Clear Calc Drug Dose 61.3 ml/min Estimated GFR () 94.3 Estimated GFR (Non- 81.3 BUN/Creatinine Ratio 17.5 10-20 Random Glucose 262 70-99 mg/dl Calcium Level 9.5 8.5-10.1 mg/dl Total Bilirubin 0.9 0.2-1 mg/dl Direct Bilirubin 0.2 0-0.2 mg/dl Aspartate Amino Transf (AST/SGOT) 14 15-37 U/L Alanine Aminotransferase (ALT/SGPT) 27 12-78 U/L Alkaline Phosphatase 97 45-117 U/L Total Creatine Kinase 51 26-192 U/L Creatine Kinase MB 1.0 0.5-3.6 ng/ml Creatine Kinase MB Ratio 0-3.0 Troponin I < 0.015 0-0.045 ng/ml Total Protein 6.9 6.4-8.2 gm/dl Albumin 3.7 3.4-5.0 gm/dl Thyroid Stimulating Hormone (TSH) 0.222 0.300-4.500 uIu/ml Urine Color YELLOW Urine Appearance CLEAR CLEAR Urine pH 5.0 4.5-7.5 Urine Specific [place] 1.018 1.000-1.030 Urine Protein NEG NEG Urine Glucose (UA) 3+ NEG Urine Ketones NEG NEG Urine Occult Blood NEG NEG Urine Nitrite NEG NEG Urine Bilirubin NEG NEG Urine Urobilinogen NEG NEG Urine Leukocyte Esterase NEG NEG Influenza Type A Antigen Neg for Influ A NEG Influenza Type B Antigen Neg for Influ B NEG Prothrombin Time 10.7 9.0-12.0 SECONDS Prothromb Time International Ratio 1.0 0.9-1.1 Activated Partial Thromboplast Time 22.4 21.0-31.0 SECONDS Partial Thromboplastin Ratio 0.9 Impression Assessment and Plan 77 year old female with past medical history of dyslipidemia, hypothyroidism, and diabetes mellitus on oral hypoglycemic presented to the hospital with acute on chronic progressive change in mental status. Patient had a recent diagnosis of Alzheimer's/dementia and recently received Cipro for UTI which might have contributed to her confusion Assessment Worsening dementia/Alzheimer Change in mental status secondary to above plus UTI/Cipro Hypothyroidism on Synthroid Dyslipidemia Diabetes mellitus on oral hypoglycemic Plan Admit patient to [facility] TSH was 0.22, I do not think it is contributing to her current problem Start patient on banana bag including thiamine and folic acid, despite if no history of alcoholism but could be nutritional thiamine deficiency Check B12 level and ammonia level Continue home medications as possible Continue empiric treatment of UTI with ceftriaxone plus Lactinex Haldol IM as needed agitation One-to-one health safety instructor Fall precautions Advanced Directives Existing Living Will: No Existing Power of Typewriter Assembler: Yes VTE Prophylaxis VTE Risk Assessment Done? Y/N: Yes Risk Level: Moderate
[2017-08-27] MEDS: GABAPENTIN 300 MG CAP PO SCH (22:03)
[2017-08-27] MEDS: INSULIN ASPART 100 UNITS/ML 3 ML PEN SC SCH (22:04)
[2017-08-27] MEDS: HEPARIN SOD 5000 UNIT/0.5 ML CARP SQ SCH (22:04)
[2017-08-27] MEDS: CEFTRIAXONE SOD INJ 1 GM in DEXTROSE 5% ADD-VANTAGE 50ML 50 ML IV SCH (22:05)
[2017-08-27] MEDS: CALCIUM 600MG + VIT D 400 IU TAB PO SCH (22:05)
[2017-08-27] MEDS: MEMANTINE 10 MG TAB PO SCH (22:05)
[2017-08-28 01:07] VITALS: BP 119/59; PULSE 79; TEMP 36.5; O2SAT 95
[2017-08-28] MEDS: LEVOTHYROXINE 125 MCG TAB PO SCH (06:03)
[2017-08-28 07:45] VITALS: BP 147/58; PULSE 79; TEMP 36.4; O2SAT 97
[2017-08-28] MEDS ORDERED: PNEUMOCOCCAL POLYSACCHARIDES 25 MCG/0.5 ML VIAL/SYR IM. ONE (08:00)
[2017-08-28] MEDS ORDERED: PNEUMOCOCCAL ADMINISTRATION CHARGE ONE (08:00)
[2017-08-28 08:40] VITALS: O2SAT 97
[2017-08-28 08:40] LABS: BASO % 0.4 %; BASO ABS # 0.03 K/uL (0-0.2); EOS % 1.8 %; EOS ABS # 0.13 K/uL (0-0.5); HEMATOCRIT 42.1 % (37-47); HEMOGLOBIN 14.1 g/dL (12.0-16.0); IG# 0.02 K/uL (0.00-0.02); LYMPH ABS # 1.73 K/uL (1.2-3.4); MEAN CELL VOLUME 93.3 fL (80-100); MEAN CORPUSCULAR HEMOGLOBIN 31.3 pg (25-34); MEAN CORPUSCULAR HGB CONC 33.5 g/dl (32-36); MEAN PLATELET VOLUME 10.3 fL (7.4-10.4); MONO % 9.6 %; MONO ABS # 0.69 K/uL (0.11-0.59); NEUT % 63.9 %; PLATELET COUNT 201 K/uL (130-400); RED CELL DISTRIBUTION WIDTH CV 12.3 % (11.5-14.5); RED CELL DISTRIBUTION WIDTH SD 41.2 fL (36.4-46.3)
[2017-08-28 08:45] LABS: ALBUMIN 3.3 gm/dl (3.4-5.0); CALCIUM 9.4 mg/dl (8.5-10.1); CREATININE 0.64 mg/dl (0.60-1.20); POTASSIUM 4.1 mmol/L (3.5-5.1)
[2017-08-28 08:48] LABS: TOTAL PROTEIN 6.8 gm/dl (6.4-8.2)
[2017-08-28] MEDS ORDERED: INSULIN GLARGINE SOLOSTAR 100 UNITS/ML 3 ML PEN SC SCH (09:00)
[2017-08-28] MEDS: INSULIN ASPART 100 UNITS/ML 3 ML PEN SC SCH ×4 (09:42→21:17)
[2017-08-28] MEDS: HEPARIN SOD 5000 UNIT/0.5 ML CARP SQ SCH ×2 (09:43→21:18)
[2017-08-28] MEDS: MEMANTINE 10 MG TAB PO SCH ×2 (09:44→22:30)
[2017-08-28] MEDS: LACTOBACILLUS ACIDOPHILUS (FLORANEX) TAB PO SCH ×4 (09:44→18:00)
[2017-08-28] MEDS: CALCIUM 600MG + VIT D 400 IU TAB PO SCH ×2 (09:44→21:04)
[2017-08-28] MEDS: DOCUSATE SODIUM/SENNA 50/8.6MG TAB PO SCH (09:45)
[2017-08-28] MEDS: ATORVASTATIN 10 MG TAB PO SCH (09:45)
--- NOTE | 2017-08-28 14:50 | Hospitalist Progress Note ---
Hospitalist Progress Note Date of Service Aug 28, 2017. (Francia Garcia ., GRANT) Subjective Pt evaluation today including: conversation w/ patient, physical exam, chart review, review of inpatient medication list Ms. Diamond is unable to say much more than "no" to questions and cannot report a ros. She cannot state her full name and is sitting in the chair humming. (Francia Garcia ., GRANT) Medications Medications Administered Medications (Trade) Dose Ordered Sig/Ronit Route Start Time Stop Time Status Last Admin Dose Admin Haloperidol (Haldol Tab) 5 mg NOW STAT PO 08/27/17 11:16 08/27/17 11:18 DC 08/27/17 11:32 5 MG Sodium Chloride 500 ml @ 999 mls/hr Q31M STAT IV 08/27/17 11:16 08/27/17 11:46 DC 08/27/17 12:35 999 MLS/HR Haloperidol (Haldol Tab) 5 mg NOW STAT PO 08/27/17 15:00 08/27/17 15:06 DC 08/27/17 15:24 5 MG Lorazepam (Ativan Tab) 0.5 mg NOW STAT SL 08/27/17 15:00 08/27/17 15:06 DC 08/27/17 15:24 0.5 MG Polyethylene (Miralax Powder Packet) 17 gm DAILY PRN PO 08/27/17 18:30 09/26/17 18:29 08/28/17 10:37 17 GM Heparin Sodium (Porcine) (Heparin Sq 5000 Unit/0.5ml) 5,000 unit Q12H SQ 08/27/17 21:00 09/26/17 20:59 08/28/17 09:43 5,000 UNIT Haloperidol Lactate (Haldol Inj) 2 mg Q6H PRN IM 08/27/17 18:30 09/26/17 18:29 08/27/17 18:37 2 MG Multivitamins 10 ml/Thiamine HCl 100 mg/Folic Acid 1 mg/Sodium Chloride 1,011.2 ml @ 50 mls/hr DAILY@2000 IV 08/27/17 20:00 09/26/17 19:59 08/27/17 20:12 50 MLS/HR Atorvastatin Calcium (Lipitor Tab) 10 mg DAILY PO 08/28/17 09:00 09/27/17 08:59 08/28/17 09:45 10 MG Calcium/Vitamin D (Caltrate Plus Tab) 1 tab BID PO 08/27/17 21:00 09/26/17 20:59 08/28/17 09:44 1 TAB Gabapentin (Neurontin Cap) 300 mg HS PO 08/27/17 21:00 09/26/17 20:59 08/27/17 22:03 300 MG Levothyroxine Sodium (Synthroid Tab) 125 mcg DAILYBB PO 08/28/17 06:30 09/27/17 06:29 08/28/17 06:03 125 MCG Memantine (Namenda Tab) 10 mg BID PO 08/27/17 21:00 09/26/17 20:59 08/28/17 09:44 10 MG Lactobacillus Acidophilus (Floranex Tab) 4 tab TIDM PO 08/28/17 08:00 09/27/17 07:59 08/28/17 09:44 4 TAB Senna/Docusate Sodium (Senokot S Tab) 1 tab QAM PO 08/28/17 09:00 09/27/17 08:59 08/28/17 09:45 1 TAB Insulin Aspart (novoLOG ASPART) SLIDING SCALE If C... ACHS SC 08/27/17 21:00 09/26/17 20:59 08/28/17 12:20 6 UNITS Ceftriaxone Sodium 1 gm/ Dextrose 50 ml @ 100 mls/hr Q24H IV 08/27/17 21:00 09/06/17 20:59 08/27/17 22:05 100 MLS/HR Insulin Glargine (Lantus Solostar Pen) 5 units DAILY SC 08/28/17 09:00 09/27/17 08:59 08/28/17 09:49 5 UNITS (Francia Garcia, GRANT) Objective Vital Signs Date Time Temp Pulse Resp B/P (MAP) Pulse Ox O2 Delivery O2 Flow Rate FiO2 08/28/17 08:40 97 Room Air 08/28/17 07:45 36.4 79 18 147/58 (87) 97 Room Air 08/28/17 01:07 36.5 79 18 119/59 (79) 95 Room Air 08/27/17 19:41 36.7 79 18 134/89 95 Room Air 08/27/17 19:00 97 18 96 Room Air 08/27/17 17:18 99 18 98 Room Air 08/27/17 15:41 36.3 74 20 97 Room Air (Francia Garcia CRNP) Physical Exam Notes: General: no distress Eyes: normal inspection, PERLL Respiratory: chest non tender, clear to auscultation, normal breath sounds, no respiratory distress, no accessory muscle use Cardiac: regular rate and rhythm, no rub or gallop, no murmur, no edema, no jvd GI/: active bowel sounds, no abd pain or tenderness, soft, non distended Extremities: normal range of motion, normal strength, non tender Neuro/Psych: alert, disoriented, Skin: normal color, dry (Francia Garcia CRNP) Laboratory Results Last 24 Hours Test 08/27/17 21:07 08/27/17 21:54 08/28/17 07:33 08/28/17 07:58 Lipase 112 U/L Bedside Glucose 254 mg/dl 224 mg/dl White Blood Count 7.20 K/uL Red Blood Count 4.51 M/uL Hemoglobin 14.1 g/dL Hematocrit 42.1 % Mean Corpuscular Volume 93.3 fL Mean Corpuscular Hemoglobin 31.3 pg Mean Corpuscular Hemoglobin Concent 33.5 g/dl Platelet Count 201 K/uL Mean Platelet Volume 10.3 fL Neutrophils (%) (Auto) 63.9 % Lymphocytes (%) (Auto) 24.0 % Monocytes (%) (Auto) 9.6 % Eosinophils (%) (Auto) 1.8 % Basophils (%) (Auto) 0.4 % Neutrophils # (Auto) 4.60 K/uL Lymphocytes # (Auto) 1.73 K/uL Monocytes # (Auto) 0.69 K/uL Eosinophils # (Auto) 0.13 K/uL Basophils # (Auto) 0.03 K/uL RDW Standard Deviation 41.2 fL RDW Coefficient of Variation 12.3 % Immature Granulocyte % (Auto) 0.3 % Immature Granulocyte # (Auto) 0.02 K/uL Echinocytes 1+ Sodium Level 139 mmol/L Potassium Level 4.1 mmol/L Chloride Level 104 mmol/L Carbon Dioxide Level 27 mmol/L Anion Gap 8.0 mmol/L Blood Urea Nitrogen 8 mg/dl Creatinine 0.64 mg/dl Est Creatinine Clear Calc Drug Dose 69.0 ml/min Estimated GFR () 100.5 Estimated GFR (Non- 86.7 BUN/Creatinine Ratio 12.5 Random Glucose 238 mg/dl Estimated Average Glucose 212 mg/dl Hemoglobin A1c 9.0 % Calcium Level 9.4 mg/dl Total Bilirubin 0.7 mg/dl Aspartate Amino Transf (AST/SGOT) 17 U/L Alanine Aminotransferase (ALT/SGPT) 27 U/L Alkaline Phosphatase 94 U/L Ammonia 11.7 umol/L Total Protein 6.8 gm/dl Albumin 3.3 gm/dl Globulin 3.5 gm/dl Albumin/Globulin Ratio 0.9 Vitamin B12 Level 586 pg/mL Test 08/28/17 11:26 Bedside Glucose 273 mg/dl (Francia Garcia ., GRANT) Assessment and Plan 77 year old female with past medical history of dyslipidemia, hypothyroidism, and diabetes mellitus on oral hypoglycemic presented to the hospital with acute on chronic progressive change in mental status. AMS/worsening dementia - no s/s of infection - cxr, head ct normal, will complete treatment for UTI tomorrow, prp without electrolyte abnormalities - B12 wnl - can continue banana bag another day to safeguard against nutritional deficiency as contributor to ams, no hx of alcoholism - consult psych - repeat prp in am - continue 1:1 sitter DMII - A1c 9 - lantus added this morning, continue ss - bsg ac and hs Hypothyroidism - continue home levothyroxine DNR (Francia Garcia CRNP) Reviewed: Pt Seen/Exam by Me (Conchita Haji MD) History GRANT Supervision Note: I interviewed and examined the patient. Discussed with GRANT Garcia and agree with findings and plan as documented in the note. Any exceptions or clarifications are listed here: Pt not able to tell me much. Has "word salad." When asked if she knws where she is, she tells me she is in "some sort of movie." Daughter reports that at the end of July, she requested pt be taken off some of her meds due to difficulty getting her to take them at home. Aricept, Namenda , and her metformin were all stopped. Shortly after that, pt had a fairly sudden onset of worsening expressive aphasia, no weakness or slurred speech. No trouble with bowels or constipation until this week but had BM today. Treated for 6 days of UTI with no improvement in symptoms. No c/o headache, abd pain, CP , or SOB or cough. No fevers. Vitals reviewed NAD, alert, awake, does not follow instructions well, has trouble focusing, not oriented at all RRR no mgr CTAB no wcr Abd +BS soft NT ND Ext no edema, 2+ DP pulses Neuro-cannot follow commands for exam but can move all extremities, sensation grossly intact, EOMI 77 yo female with progressive mod-severe dementia. here with worsening speech and agitation over the last 2 weeks, with more rapid progression ofdementia in the last 6 months since the of her . -Question if had acute CVA 2 weeks ago-check MRI -consult Neurology for any other recommendations - Consult Psychiatry to see if could have superimposed depression with psychosis ? -PT/OT evaluations Documented By: Conchita Haji (Conchita Haji MD)
[2017-08-28 15:31] VITALS: BP 134/77; PULSE 71; TEMP 37.1; O2SAT 95
[2017-08-28] MEDS: CEFTRIAXONE SOD INJ 1 GM in DEXTROSE 5% ADD-VANTAGE 50ML 50 ML IV SCH (20:23)
[2017-08-28] MEDS: MULTI-VITAMIN INFUSION INJ 10 ML, THIAMINE HCL INJ 100 MG, FoLIC ACID INJ 1 MG in SODIU... IV SCH (20:59)
[2017-08-28] MEDS: GABAPENTIN 300 MG CAP PO SCH (21:05)
[2017-08-28 23:46] VITALS: BP 139/80; PULSE 66; TEMP 36.8; O2SAT 95
[2017-08-29] MEDS: LEVOTHYROXINE 125 MCG TAB PO SCH (06:08)
[2017-08-29] MEDS: MEMANTINE 10 MG TAB PO SCH (07:48)
[2017-08-29] MEDS: ATORVASTATIN 10 MG TAB PO SCH (07:48)
[2017-08-29] MEDS: CALCIUM 600MG + VIT D 400 IU TAB PO SCH (07:49)
[2017-08-29] MEDS: DOCUSATE SODIUM/SENNA 50/8.6MG TAB PO SCH (07:49)
[2017-08-29] MEDS: LACTOBACILLUS ACIDOPHILUS (FLORANEX) TAB PO SCH ×2 (07:49→12:37)
[2017-08-29 08:26] VITALS: BP 104/82; PULSE 69; TEMP 36.7; O2SAT 93
[2017-08-29 08:30] VITALS: O2SAT 97
[2017-08-29] MEDS ORDERED: DONEPEZIL HCL 10 MG TAB PO SCH (09:00)
[2017-08-29] MEDS ORDERED: INSULIN GLARGINE SOLOSTAR 100 UNITS/ML 3 ML PEN SC SCH (09:00)
[2017-08-29] MEDS: HEPARIN SOD 5000 UNIT/0.5 ML CARP SQ SCH (09:41)
[2017-08-29] MEDS: INSULIN ASPART 100 UNITS/ML 3 ML PEN SC SCH ×2 (09:42→13:49)
--- NOTE | 2017-08-29 11:51 | Neurology Consultation ---
Neurology Consultation Date of Consultation: Aug 29, 2017. Attending Physician: Conchita Haji MD Primary Care Physician: Asim Davis M.D. Reason for Consultation: Consultation for acute encephalopathy, dementia, expressive aphasia History of Present Illness Source: patient, clinic records, hospital records This is a 77-year-old female who presents for evaluation and treatment of worsening altered mental status of the last 2 weeks. By report family seems to feel that this may have coincided with discontinuation of medications. There are having difficulty getting her to take her medications and so she was taken off of metformin and Namenda to see if this would simplify her medication administration. At baseline it appears that the patient only says 1-3 word sentences. She has been requiring [id number] care for a while. Her who was her primary caregiver did recently in March 2017 and she has been living with her daughter since then. As an outpatient the patient' s primary care has tried Ativan and olanzapine for behavioral agitation events. Patient denies any hallucinations but sitter at bedside seem to suggest that she is having some hallucinations or delusions at times. Reviewing the outpatient chart as the patient was last seen in neurology clinic in 2014 with our physician psych assistant Gayatri Lim under the supervision of Dr. Martinez. At that time she was noted to have moderate to severe dementia. She was on Aricept and Namenda. Was noted to have trouble with expressive language at that time. There was some concern that she may need placement in the near future if family was having trouble taking care of her. Recent primary care note also expressed concerns or suspicion that she may need placement in the near future. MRI of the brain report and images from 2013 were reviewed by myself. The patient had mild generalized atrophy at that time with mild subcortical T2 hyperintensities within consistent with small vessel ischemic disease (not uncommon for her age). Labs this hospital admission were reviewed. UA was unremarkable. WBCs and complete metabolic panel were unremarkable. B12 level was within normal limits at 586. Hemoglobin A1c was 9.0. Ammonia level within normal limits of 11.7. TSH was slightly low at 0.222. Patient did appear to be able to answer some of her review of systems correctly and accurately. She reports an occasional nonspecific headache that she reports is not too bad. Denies any pain. Reports generalized weakness. No new numbness. No trouble with eating or swallowing. She denies hallucinations but sitter at bedside seem to suggest that she is having some hallucinations or delusions at times. Past Medical/Surgical History Medical Problems: (1) Agitation Status: Acute (2) Vomiting Status: Acute Diabetes type 2, hypothyroid, dyslipidemia, dementia Family History By chart review family history of diabetes, dementia, and CAD Social History Patient currently lives with her daughter. She is dependent on others around the clock for her activities of daily living and supervision. Drug Use: none Marital Status: Housing Status: lives with significant other Occupation Status: retired Allergies Coded Allergies: Sulfa Antibiotics (Verified Allergy, Mild, "SULFA DRUGS": RASH, 08/27/17) Current Inpatient Medications Current Inpatient Medications Medications (Trade) Dose Ordered Sig/Ronit Route Start Time Stop Time Status Last Admin Dose Admin Acetaminophen (Tylenol Tab) 650 mg Q4H PRN PO 08/27/17 18:30 09/26/17 18:29 Al Hydrox/Mg Hydrox/Simethicone (Maalox Max Susp) 15 ml Q4H PRN PO 08/27/17 18:30 09/26/17 18:29 Magnesium Hydroxide (Milk Of Magnesia Susp) 30 ml Q6H PRN PO 08/27/17 18:30 09/26/17 18:29 Polyethylene (Miralax Powder Packet) 17 gm DAILY PRN PO 08/27/17 18:30 09/26/17 18:29 08/28/17 10:37 17 GM Zolpidem Tartrate (Ambien Tab) 5 mg HSZ PRN PO 08/27/17 18:30 09/26/17 18:29 Ondansetron HCl (Zofran Inj) 4 mg Q6H PRN IV 08/27/17 18:30 09/26/17 18:29 Heparin Sodium (Porcine) (Heparin Sq 5000 Unit/0.5ml) 5,000 unit Q12H SQ 08/27/17 21:00 09/26/17 20:59 08/29/17 09:41 5,000 UNIT Haloperidol Lactate (Haldol Inj) 2 mg Q6H PRN IM 08/27/17 18:30 09/26/17 18:29 08/27/17 18:37 2 MG Multivitamins 10 ml/Thiamine HCl 100 mg/Folic Acid 1 mg/Sodium Chloride 1,011.2 ml @ 50 mls/hr DAILY@2000 IV 08/27/17 20:00 09/26/17 19:59 08/28/17 20:59 50 MLS/HR Atorvastatin Calcium (Lipitor Tab) 10 mg DAILY PO 08/28/17 09:00 09/27/17 08:59 08/29/17 07:48 10 MG Calcium/Vitamin D (Caltrate Plus Tab) 1 tab BID PO 08/27/17 21:00 09/26/17 20:59 08/29/17 07:49 1 TAB Gabapentin (Neurontin Cap) 300 mg HS PO 08/27/17 21:00 09/26/17 20:59 08/28/17 21:05 300 MG Levothyroxine Sodium (Synthroid Tab) 125 mcg DAILYBB PO 08/28/17 06:30 09/27/17 06:29 08/29/17 06:08 125 MCG Lorazepam (Ativan Tab) 0.5 mg Q6 PRN PO 08/27/17 20:45 09/26/17 20:44 08/29/17 11:03 0.5 MG Memantine (Namenda Tab) 10 mg BID PO 08/27/17 21:00 09/26/17 20:59 08/29/17 07:48 10 MG Olanzapine (Zyprexa Zydis Od Tab) 2.5 mg BID PRN PO 08/27/17 20:45 09/26/17 20:44 08/28/17 21:06 2.5 MG Tramadol HCl (Ultram Tab) 50 mg Q6 PRN PO 08/27/17 20:45 09/26/17 20:44 Lactobacillus Acidophilus (Floranex Tab) 4 tab TIDM PO 08/28/17 08:00 09/27/17 07:59 08/29/17 07:49 4 TAB Bisacodyl (Dulcolax Supp) 10 mg UD PRN MI 08/27/17 20:45 09/26/17 20:44 Senna/Docusate Sodium (Senokot S Tab) 1 tab QAM PO 08/28/17 09:00 09/27/17 08:59 08/29/17 07:49 1 TAB Insulin Aspart (novoLOG ASPART) SLIDING SCALE If C... ACHS SC 08/27/17 21:00 09/26/17 20:59 08/29/17 09:42 5 UNITS Glucose (Glucose 40% Gel) 15-30 GRAMS 15 GRAMS... UD PRN PO 08/27/17 20:45 09/26/17 20:44 Glucose (Glucose Chew Tab) 4-8 Tablets 4 Tabl... UD PRN PO 08/27/17 20:45 09/26/17 20:44 Dextrose (Dextrose 50% 50ML Syringe) 25-50ML OF 50% DW IV FOR... UD PRN IV 08/27/17 20:45 09/26/17 20:44 Glucagon (Glucagon Inj) 1 mg UD PRN SQ 08/27/17 20:45 09/26/17 20:44 Ceftriaxone Sodium 1 gm/ Dextrose 50 ml @ 100 mls/hr Q24H IV 08/27/17 21:00 09/06/17 20:59 08/28/17 20:23 100 MLS/HR Donepezil HCl (Aricept Tab) 10 mg DAILY PO 08/29/17 09:00 09/28/17 08:59 08/29/17 07:52 10 MG Insulin Glargine (Lantus Solostar Pen) 10 units DAILY SC 08/29/17 09:00 09/27/17 08:59 08/29/17 09:44 10 UNITS Review of Systems Complete review of systems was either unobtainable due to mental status or normal except for the above noted in history of present illness. Physical Exam Vital Signs (Past 24 Hrs): Date Time Temp Pulse Resp B/P (MAP) Pulse Ox O2 Delivery O2 Flow Rate FiO2 08/29/17 08:26 36.7 69 20 104/82 (89) 93 Room Air 08/29/17 00:00 Room Air 08/28/17 23:46 36.8 66 18 139/80 (99) 95 Room Air 08/28/17 16:00 Room Air 08/28/17 15:31 37.1 71 18 134/77 (96) 95 Room Air Gen.: Patient is alert and oriented in no acute distress lying in bed Heart: Regular rate and rhythm Extremities: No gross deformities or rashes noted Neurological examination: Mental status: Patient is a alert, cooperative, and interactive. He often has difficulty following verbal commands. Able to provide some review of systems. Attention & concentration normal for the situation. Severely impaired remote and recent memory. When given choices the patient seemed indicate that she was at home and did not think that she was at the hospital. Speech was at time fluent. Patient displayed moderate to severe mixed expressive and receptive aphasia. (Expressive more than receptive) Cranial nerves: Funduscopic examination was difficult to visualize due to mental status. Pupils equally round and reactive to light. Extraocular muscles intact without nystagmus. No facial asymmetry noted. Facial sensation intact. Tongue midline. Good palatal elevation. Good shoulder shrug bilaterally. Hearing grossly intact voice. Strength: Appeared to have full strength in all extremities also did not give full effort with strength examination due to mental status. Moved all extremities equally and antigravity.Tone is normal. Sensation: Grossly intact to light touch in all extremities Deep tendon reflexes: +1 in bilateral biceps and patellar. Toes are downgoing to plantar stimulation bilaterally Coordination: Unable to do formal coordination testing due to mental status the patient did appear to be able to reach out and grab normally with no signs of dysmetria or ataxia Station within the bed is normal. Laboratory Results Past 24 Hours: Test 08/29/17 07:40 Bedside Glucose 217 mg/dl (70-90) Imaging As noted above in history of present illness Impression This is a 77-year-old female who presents with advanced mixed dementia and worsening encephalopathy and behavioral disturbances. Expressive more than receptive aphasia likely secondary to progressive dementia. It is not uncommon that after a spouse/primary caregiver dies that there is a family perception of worsening symptoms. In addition stopping Namenda recently could have contributed to worsening symptoms. Aricept and Namenda do not stop the progression of dementia, but can help slow down the symptoms. Sometimes an advanced dementia it's difficult to tell whether these medications continue to have any significant benefit. In addition the patient is on a few medications that could be contributing to acute encephalopathy or delirium including tramadol, Ambien, and Ativan. Plan Agree with obtaining MRI of the brain to rule out stroke or mass causing worsening encephalopathy. If there does appear to be a progression of small vessel ischemic disease on MRI compared to 2014, would recommend adding aspirin 81 mg daily, as there could be a vascular component to her dementia. Agree with physical therapy, occupational therapy, and speech therapy evaluation and treatment. This may help the patient's overall functioning. It is also entirely possible that depending on the patient's level of care and needs, that her care needs may be more than what the family can provide at home , and may need to consider placement if needed. Recommend discontinuation of home Ativan and Ambien as this could contribute to delirium and worsening confusion. May continue using olanzapine as needed for agitation or severe behavioral disturbances. If olanzapine does not appear to be effective, could consider low- dose Seroquel or Risperdal qhs or BID as an alternative. Limit use of medications that could cause delirium such as tramadol, opioids ( although fentanyl patch is probably acceptable if needed), benzodiazepine, sleep aid medications, Benadryl, etc. May continue Aricept and Namenda to help slow down symptoms of memory loss and cognition. These medications unfortunately do not stop or reverse her current symptoms. Sometimes in advanced dementia it is acceptable to stop these medications if it is felt that there is no significant benefit to continuing with them. Can consider Namzeric as an outpatient if needed. This is a combination of donepezil and extended-release Namenda in a once per day formulation that may be easier to administer to the patient, but also sometimes is cost prohibitive. TSH was noted to be mildly low on admission. Thyroid management per hospitalist and primary care. Follow-up in neurology clinic in 1 month for cognitive reevaluation if desired. Thank you for allowing me to participate in this patient's care. If there is any questions or concerns, feel free to call/ page me.
--- NOTE | 2017-08-29 11:56 | Psychiatric Consultation ---
Psychiatric Consultation Date of Service: Aug 29, 2017. Attempted to see pt but she was out of room to obtain a MRI. have reviewed chart including neuro consult. will stop by again to attempt to assess pt later.
--- NOTE | 2017-08-29 13:36 | Psychiatric Consultation ---
Consultation Date of Consultation Aug 29, 2017. Identifying Data 77 year old female with dementia admitted for worsening agitation with expressive aphasia, psychiatry consulted for AMS Chief Complaint "AMS in context of dementia". History of Present Illness A 77-year-old female who is medically admitted for worsening altered mental status of the last 2 weeks. Collateral obtained by pt's daughter Serenity who indicates that this worsening of agitation and presentation occurred around the same time that 3 medications were discontinued on 08/10.(Namenda, Aricept, and metformin) due to the difficulty of having her take the degree of mediations that were prescribed and was aiming to lessened her medication load. Additionally on 08/21 Macrobid was started and that was stopped on 08/26. (for UTI ) At baseline, it appears that the patient only provides limited communication of 1-3 word sentences. She has been requiring [id number] care for a while. Her who was her primary caregiver did recently in March 2017 and she has been living with her daughter since then. Ativan prn has been previously tried for behavioral agtiation as has olanzapine 2.5mg doses prn. family has noticed that she appears ot be talking at times to the wall wand might be responding to internal stimuli, this is a new to be occurring over the past few weeks, Per neuro consult, it appears pt is known to have moderate to severe dementia in 2014, with Aricept and nameda rx'd at that time and with pt noted ot have trouble with expressive language and with some concern that she may need placement in the near future if family was having trouble taking care of her. Recent primary care note also expressed concerns or suspicion that she may need placement in the near future per current neuro consult Neuro has order repeat MRI. current labwork is unremarkable, with most notable lab result of TSH slightly low at 0.222 pt was not able to respond coherently to marketing underwriter at time of interview and was at times triyng to get out of the bed till settled down, was likely over simulated by the degree of activity in the room at the time Past Psychiatric History Current OP Treatment: no current treatment Prior OP Treatment: no prior treatment Allergies Allergies: Coded Allergies: Sulfa Antibiotics (Verified Allergy, Mild, "SULFA DRUGS": RASH, 08/27/17) Home Medications Scheduled Atorvastatin (Lipitor), 10 MG PO DAILY Calcium Carbonate-Vitamin D W/ (Caltrate 600 Plus), 1 TAB PO BID Ciprofloxacin (Cipro), 250 MG PO BID Donepezil Hydrochloride (Donepezil Hcl), 10 MG PO DAILY Gabapentin (Gabapentin), 300 MG PO HS Levothyroxine Sodium (Synthroid), 125 MCG PO DAILY Meloxicam (Mobic), 7.5 MG PO DAILY Memantine Hcl (Namenda), 10 MG PO BID Metformin Hcl (Glucophage), 1,000 MG PO QAM Scheduled PRN Lorazepam (Lorazepam), 0.5 MG PO Q6 PRN for Anxiety Olanzapine (Zyprexa Zydis Odt), 2.5 MG PO BID PRN for agitation Tramadol (Ultram), 50 MG PO Q6 PRN for Pain Family History Diabetes mellitus Smoking Use Smoking Status: Former Smoker Personal History Lives in: lives with family Education: graduated from high school, started college 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 Relationship History: (Mar 27 2017) Children: Serenity, Alivia, Stuart, Jagdish Legal History: none Psychological Trauma History: Denies Hx Traumatic Event (no known past trauma history ) Examination Vital Signs Vital Signs Past 12 Hours Date Time Temp Pulse Resp B/P (MAP) Pulse Ox O2 Delivery O2 Flow Rate FiO2 08/29/17 08:30 97 Room Air 08/29/17 08:26 36.7 69 20 104/82 (89) 93 Room Air Laboratory Results Last 24 Hours Test 08/28/17 16:07 08/28/17 20:03 08/29/17 07:40 Bedside Glucose 125 mg/dl 262 mg/dl 217 mg/dl Mental Examination During interview pt is: other (no oriented ) Appearance: other (hospital gown) Motor behavior is: other (laying in hospital bed) Speech: other (not communicative) Affect: other (easily agitated) Mood is: other (unresponsive) Thought process: incoherent Thought content: other (impacted by dementia) Hallucinations: other (per report might be reacting to internal stimuli at times) Cognition: other (impacted by severe dementia) Intelligence estimated to be: other (impacted by severe dementia) Insight: severely impaired Judgement: severely impaired Impression / Recommendations Impression severe dementia possibly negatively impacted by recent stopping of Aricept, Namenda, metformin, with also possible impacted by Macrobid doses from Aug 21- for UTI that could also be a source of acute worsening of presentation presentation could be aggravated by of Mar 27 2017. labwork unremarkable besides slightly low tsh repeat MRI being obtained today neuro consulted Recommendations (1) Altered mental status likely tied to dementia and medical concerns reviewed neuro consult and agree with work up continue behavioral management of dementia with limited stimulation and redirection agree with neuro with stopping home ambien/ativan and limiting meds that could add to delirium/confusional aspects such as tramadol/benzos/opioids/anti- choleragenic medications agree with continuing using olanzapine as needed for agitation or severe behavioral disturbances. can consider low-dose Seroquel or Risperdal qhs or BID as an alternative if olanzapine is not appearing to be effective. TSH was noted to be mildly low on admission. Thyroid management per hospitalist and primary care. Presentation does not appear to be primary psychiatric and f/u with neuro appears appropriate aftercare
[2017-08-29] MEDS ORDERED: QUET1TAB91 PO (14:41)
[2017-08-29] MEDS ORDERED: ASPEC81 PO (14:41)
--- NOTE | 2017-08-29 14:44 | Discharge Instructions ---
Discharge Instructions Date of Service Aug 29, 2017. Admission Reason for Admission: Change In Mental Status Discharge Discharge Diagnosis / Problem: Progressive severe dementia Discharge Goals Goal(s): Improve disease control, Diagnostic testing, Therapeutic intervention Activity Recommendations Activity Limitations: resume your previous activity Shower/Bathe: no limitations . Instructions / Follow-Up Instructions / Follow-Up You were admitted with agitation and change in speech and mental status. Multiple lab tests and imaging studies were performed; you were also seen by a neurologist. It was determined that all of her symptoms are most likely secondary to progressively worsening severe dementia. There are some medications that will be stopped that might be contributing to some excess confusion such as tramadol, Lorazepam. You will be started on a baby aspirin once daily to help prevent possible strokes. He will also be started on Seroquel as needed in the morning for agitation and to be taken every night for sleep. He will stop taking the olanzapine. It is okay for you to restart the Namenda and Aricept to see if this makes a difference. Please follow-up with the neurologist in 1 month. Please follow-up with your PCP within 1-2 weeks. Current Hospital Diet Patient's current hospital diet: Diabetes Type 2 Diet Discharge Diet Recommended Diet: Diabetes Type 2 Diet Procedures Procedures Performed: CT head Chest x-ray Pending Studies Studies pending at discharge: no Laboratory Results Hemoglobin A1c Test 08/28/17 07:58 Range/Units Estimated Average Glucose 212 mg/dl Hemoglobin A1c 9.0 H 4.5-5.6 % Medical Emergencies . Who to Call and When: Medical Emergencies: If at any time you feel your situation is an emergency, please call 911 immediately. . Non-Emergent Contact Non-Emergency issues call your: Primary Care Provider, Neurologist Call Non-Emergent contact if: you have any medication questions . . "Provider Documentation" section prepared by Conchita Haji. . VTE Core Measure Inpt VTE Proph given/why not?: Unfractionated heparin SQ
[2017-08-29 15:49] VITALS: BP 104/82; PULSE 69; TEMP 36.7; O2SAT 97
--- NOTE | 2017-08-29 22:48 | DIAGNOSTIC IMAGING REPORT ---
Brain MRI WITHOUT CONTRAST HISTORY: Confusion. acute encephalopathy, r/o CVA TECHNIQUE: Multiplanar multisequence MRI of the brain was performed without the use of contrast. COMPARISON STUDY: Head CT 08/27/2017. FINDINGS: Significant motion artifact. The patient was only able to complete the DWI, ADC, and sagittal T1 sequences. The midline structures appear grossly intact. No definite areas of restricted diffusion to suggest acute infarction. No definite mass or hematoma. IMPRESSION: Study is markedly limited from a technical standpoint due to the motion artifact and limited sequences. No definite acute intracranial abnormality. Electronically signed by: Alexandr Hollingsworth M.D. 08/29/2017 10:46 PM Dictated Date/Time: 08/29/2017 10:44 PM
--- NOTE | 2017-08-30 00:16 | Discharge Summary ---
Discharge Summary Date of Service Aug 29, 2017. Discharge Summary Admission Date: Aug 27, 2017 at 18:26 Discharge Date: Aug 29, 2017 Discharge Disposition: Home Principal Diagnosis: Progressive severe dementia Problems/Secondary Diagnoses: Severe dementia dyslipidemia hypothyroidism diabetes mellitus II, uncontrolled Expressive and receptive aphasia UTI Procedures: CT Head CXR Brain MRI-partial Consultations: Neurology Medication Reconciliation New Medications: Quetiapine Fumarate (Seroquel) 25 Mg Tab 1 TAB PO HS for 30 Days, #60 TAB 0 Refills and can take 25mg po qAM prn agitation Aspirin (Aspirin EC Low Dose) 81 Mg Ectab 81 MG PO QAM for 30 Days OTC Continued Medications: Atorvastatin (Lipitor) 10 Mg Tab 10 MG PO DAILY, TAB Calcium Carbonate-Vitamin D W/ (Caltrate 600 Plus) 1 Tab Tab 1 TAB PO BID, TAB Donepezil Hydrochloride (Donepezil Hcl) 10 Mg Tab 10 MG PO DAILY Gabapentin (Gabapentin) 300 Mg Cap 300 MG PO HS Levothyroxine Sodium (Synthroid) 125 Mcg Tab 125 MCG PO DAILY Meloxicam (Mobic) 7.5 Mg Tab 7.5 MG PO DAILY, #30 Memantine Hcl (Namenda) 10 Mg Tab 10 MG PO BID, TAB Discontinued Medications: Ciprofloxacin (Cipro) 250 Mg Tab 250 MG PO BID, TAB PRESCRIBED 08/24/17 Lorazepam (Lorazepam) 0.5 Mg Tab 0.5 MG PO Q6 PRN for Anxiety Metformin Hcl (Glucophage) 1,000 Mg Tab 1000 MG PO QAM Olanzapine (Zyprexa Zydis Odt) 5 Mg Jaron 2.5 MG PO BID PRN for agitation, #30 JARON Tramadol (Ultram) 50 Mg Tab 50 MG PO Q6 PRN for Pain, TAB Referrals At Discharge Follow up Referrals: Neurologist Referral - Within a Month with Dayana Riggs D.O. Discharge Exam Pt remains pleasant but confused, restless at times. Spent 30 min with pt and her family today discussing test results, diagnoses and counseling. Was unable to complete brain MRI today due to restlessness, poor cooperation Vitals reviewed NAD, alert, awake, does not follow instructions well, has trouble focusing, not oriented at all RRR no mgr CTAB no wcr Abd +BS soft NT ND Ext no edema, 2+ DP pulses Neuro-cannot follow commands for exam but can move all extremities, sensation grossly intact, EOMI ROS not obtainable due to dementia Hospital Course This pt is a 77 year old female with past medical history of moderate-severe dementia, dyslipidemia, hypothyroidism, and diabetes mellitus on oral hypoglycemic presented to the hospital with acute on chronic progressive change in mental status. Daughter reports that at the end of July, she requested pt be taken off some of her meds due to difficulty getting her to take them at home. Aricept, Namenda , and her metformin were all stopped. Shortly after that, pt had a fairly sudden onset of worsening expressive aphasia, no weakness or slurred speech. No trouble with bowels or constipation until this week of admission. Treated for 6 days of UTI with no improvement in symptoms. No c/o headache, abd pain, CP, or SOB or cough. No fevers. 77 yo female with progressive mod-severe dementia. here with worsening speech and agitation over the last 2 weeks, with more rapid progression of dementia in the last 6 months since the of her . -Question if had acute CVA 2 weeks ago-check MRI brain-unable to be completed due to poor cooperation -consult Neurology for any other recommendations--> likely progressive dementia and recommended stopping lorazepam, tramadol, and dc Olanzapine and trial of Seroquel for agitation - Consult Psychiatry recommended no specific MH disorder cause of symptoms, simply progressive dementia also -PT/OT evaluations recommended SNF but daughter wants pt at home and has 24 hour caregivers - no s/s of infection - cxr, head ct normal,completed treatment for UTI and no improvement, prp without electrolyte abnormalities - B12 wnl - received banana bag with thiamine -restarted Namenda and Aricept to see if would help get back to baseline from 2- 3 weeks ago -recommended placement in NH if worsens and daughter not able to provide adequate care at home -start ASA 81mg daily in case of vascular dementia/CVA DMII - A1c 9 treated with insulin while here but not necessary given goals of care and desire for less medication including needle sticks at home Hypothyroidism-TSH mildly low at 0.222 - continue home levothyroxine dose, f/u TSH in 6 weeks DNR Stable for discharge to home Total Time Spent: Greater than 30 minutes This includes examination of the patient, discharge planning, medication reconciliation, and communication with other providers. Discharge Instructions Please refer to the electronic Patient Visit Report (Discharge Instructions) for additional information. Follow-Up Neurology in 1 month PCP within 1-2 weeks Additional Copies To Dayana Riggs D.O.; Asim Davis M.D.
[2017-08-30] MEDS ORDERED: ASPIRIN 81 MG ECTAB PO SCH (09:00)
[2017-08-30] MEDS ORDERED: ATOR10TA82 PO (12:58)
[2017-08-30] MEDS ORDERED: QUET1TAB7 PO ×2 (15:48)
[2017-08-30] MEDS ORDERED: MEMA1TAB4 PO (15:48)
[2017-08-30] MEDS ORDERED: SYN125 PO (16:03)
[2017-08-30] MEDS ORDERED: GABA-1219 PO (16:03)
[2017-08-30] MEDS ORDERED: MELO7.5T5 PO (23:02)
== END 2017-08-29 17:00 | disposition home or self-care (01) | DRG 57 ==
LOC: C.EDB 10:24 → C.MS2W 18:26 → ENRESERV 18:58
PROVIDERS: ADMIT Internal Medicine; ATTEND Family Medicine
DX: G30.9 Alzheimer's disease, unspecified (principal); N39.0 Urinary tract infection, site not specified; F02.80 Dementia in other diseases classified elsewhere, unspecified severity, without behavioral disturbance, psychotic disturbance, mood disturbance, and anxiety; E11.9 Type 2 diabetes mellitus without complications; E78.5 Hyperlipidemia, unspecified; E03.9 Hypothyroidism, unspecified; F80.1 Expressive language disorder; Z66 Do not resuscitate; Z79.84 Long term (current) use of oral hypoglycemic drugs; Z88.2 Allergy status to sulfonamides; Z87.440 Personal history of urinary (tract) infections; Z83.3 Family history of diabetes mellitus

== ENCOUNTER 2017-08-30 14:46 | Inpatient (IN) | payer OTHER ==
[~2017-08-30] VITALS: Ht 152.4 cm; Wt 78.0 kg
[~2017-08-30 14:46] MED LIST changes: +ASPEC81 PO; +ATOR10TA82 PO; -ATV5X PO; -METF-384 PO; -OLAN5TAB3 PO; +QUET1TAB91 PO; -TRAM-10 PO
[2017-08-30] MEDS ORDERED: SODIUM CHLORIDE 0.9% 500ML 500 ML IV STA (15:40)
[2017-08-30] MEDS ORDERED: MEMA1TAB4 PO (15:48)
[2017-08-30] MEDS ORDERED: QUET1TAB7 PO ×2 (15:48)
[2017-08-30] MEDS ORDERED: OPTIRAY 320 IV PRN (16:00)
[2017-08-30] MEDS ORDERED: GABA-1219 PO (16:03)
[2017-08-30] MEDS ORDERED: SYN125 PO (16:03)
--- NOTE | 2017-08-30 16:11 | DIAGNOSTIC IMAGING REPORT ---
CHEST ONE VIEW PORTABLE CLINICAL HISTORY: Evaluate Fever/Sepsis dyspnea COMPARISON STUDY: 08/27/2017 FINDINGS: The bones soft tissues and hemidiaphragms are normal. The cardiomediastinal silhouette is normal. The lungs are clear. The pulmonary vasculature is normal. IMPRESSION: Negative chest. The above report was generated using voice recognition software. It may contain grammatical, syntax or spelling errors. Electronically signed by: Ming Arguelles M.D. 08/30/2017 4:10 PM Dictated Date/Time: 08/30/2017 4:10 PM
--- NOTE | 2017-08-30 16:34 | EMERGENCY ROOM VISIT NOTE ---
History Report prepared by Adriana: Cindy Duke Under the Supervision of: Dr. Hema Gilbert M.D. First contact with patient: 15:27 Chief Complaint: OTHER COMPLAINT Stated Complaint: AMS History of Present Illness The patient is a 77 year old female who presents to the Emergency Room with complaints of a persistent altered mental status that worsen one day ago. 3 days ago the patient was seen in the Emergency Department for an altered mental status and was admitted. Upon discharge it was believed her AMS was secondary to the medication she had been taking and worsening dementia. The patient was discharged 2 days ago and lives at home where she receives 24 hour care. Her daughter reports that while the patient was here during her last visit, she was moving around and talking a little bit more than she is now. The patient's daughter states that she has been sleeping since 2100 yesterday, noting that she tends to wake up randomly but is unable to respond to questions correctly. The patient was had an MRI but was limited because she is not cooperating. Patient has a history of Alzheimer. She is a DNR. Family deny fevers, chills, cough, congestion, nausea, vomiting. Source of History: family (daughter) Position: other (mental) Quality: other (altered mental status) Timing: other (persistent) Review of Systems See HPI for pertinent positives and negatives. A total of ten systems were reviewed and were otherwise negative. Past Medical & Surgical Medical Problems: (1) Altered mental status (2) Change in mental status (3) Dementia (4) Diabetes (5) Influenza A (6) UTI (urinary tract infection) Surgical Problems: (1) S/P hernia repair Family History Diabetes mellitus Social History Smoking Status: Unknown if Ever Smoked Drug Use: none Marital Status: Housing Status: lives with significant other Occupation Status: retired Current/Historical Medications Scheduled Atorvastatin (Lipitor), 10 MG PO HS Gabapentin (Gabapentin), 300 MG PO HS Levothyroxine Sodium (Synthroid), 125 MCG PO DAILY Meloxicam (Mobic), 7.5 MG PO DAILY Memantine HCl (Memantine HCl), 10 MG PO BID Quetiapine Fumarate (Seroquel), 25 MG PO HS Scheduled PRN Quetiapine Fumarate (Seroquel), 25 MG PO QAM PRN for Agitation Allergies Coded Allergies: Sulfa Antibiotics (Verified Allergy, Mild, "SULFA DRUGS": RASH, 2/16/18) Physical Exam Vital Signs Date Time Temp Pulse Resp B/P (MAP) Pulse Ox O2 Delivery O2 Flow Rate FiO2 08/30/17 21:25 73 16 116/95 98 Room Air 08/30/17 20:44 74 08/30/17 20:10 71 16 187/67 96 Room Air 08/30/17 19:07 37.7 80 24 208/137 97 Room Air 08/30/17 17:29 78 18 95 Room Air 08/30/17 16:54 83 08/30/17 15:00 37.1 81 16 165/94 97 Room Air Physical Exam GENERAL: Awake, alert, fatigued-appearing, in no distress, arouses to loud voice but pronounced aphasia without any coherent word order. HENT: Dry mucous membranes. Normocephalic, atraumatic. Oropharynx unremarkable. EYES: Normal conjunctiva. Sclera non-icteric. NECK: Supple. No nuchal rigidity. FROM. No JVD. RESPIRATORY: Diminished at bases but otherwise clear to auscultation. CARDIAC: Regular rate, normal rhythm. Extremities warm and well perfused. Pulses equal. ABDOMEN: Soft, non-distended. No tenderness to palpation. No rebound or guarding. No masses. RECTAL: Deferred. MUSCULOSKELETAL: Chest examination reveals no tenderness. The back is symmetrical on inspection without obvious abnormality. There is no CVA tenderness to palpation. No joint edema. LOWER EXTREMITIES: Moving all extremities equally. Calves are equal size bilaterally and non-tender. No edema. No discoloration. NEURO: Arouses to loud voice. Pronounced expressive aphasia. Normal sensorium. No sensory or motor deficits noted. SKIN: No rash or jaundice noted. Medical Decision & Procedures ER Provider Diagnostic Interpretation: Radiology results as stated below per my review and radiologist interpretation: CHEST ONE VIEW PORTABLE CLINICAL HISTORY: Evaluate Fever/Sepsis dyspnea COMPARISON STUDY: 08/27/2017 FINDINGS: The bones soft tissues and hemidiaphragms are normal. The cardiomediastinal silhouette is normal. The lungs are clear. The pulmonary vasculature is normal. IMPRESSION: Negative chest. The above report was generated using voice recognition software. It may contain grammatical, syntax or spelling errors. Electronically signed by: Ming Arguelles M.D. 08/30/2017 4:10 PM Dictated Date/Time: 08/30/2017 4:10 PM ANGIOGRAPHY HEAD COMBO HISTORY: Mental status change mental status change TECHNIQUE: Multiaxial CT images of the head were performed both before and after the intravenous administration of contrast to evaluate the major cerebral vessels. Maximum intensity projection images were also obtained. A dose lowering technique was utilized adhering to the principles of ALARA. COMPARISON: 08/27/2017 FINDINGS: There is no mass, hematoma, midline shift, or acute infarct. Visualized intracranial internal carotid arteries, distal vertebral arteries, and basilar artery are widely patent. There is no significant stenosis, occlusion, or aneurysm seen within the bilateral ACAs, MCAs, or animal behaviourist. Mild/moderate scattered atelectatic change. No high-grade stenotic process. No enhancing lesion. Small calcified tentorial meningioma previously described. Moderate chronic small vessel change of aging. IMPRESSION: No significant stenosis, occlusion, or aneurysm within the [place]. Moderate scattered atherosclerotic change. No major stenosis within limitations of moderate patient motion. Age-related chronic small vessel change. The above report was generated using voice recognition software. It may contain grammatical, syntax or spelling errors. Electronically signed by: Ming Arguelles M.D. 08/30/2017 7:31 PM Dictated Date/Time: 08/30/2017 7:25 PM NECK ANGIO WITH CONTRAST HISTORY: Mental status change TECHNIQUE: Multiaxial CT images of the neck were performed following the intravenous administration of contrast to evaluate the major cervical vessels. Maximum intensity projection images were also obtained. All measurements were calculated based on NASCET criteria. A dose lowering technique was utilized adhering to the principles of ALARA. COMPARISON STUDY: None. FINDINGS: The aortic arch and proximal great vessels are widely patent. There is no significant stenosis, occlusion, or dissection identified within the bilateral common carotid, internal carotid, or vertebral arteries. Right vertebral artery is congenitally hypoplastic. Moderate plaque formation of the carotid bifurcations on the left and to a lesser extent right. No evidence for a high-grade or critical stenosis. 50-60% stenosis left internal carotid artery at its origin. IMPRESSION: 1. Moderate plaque formation left and to a lesser extent right carotid bifurcations. 2. 50-60% stenosis left internal carotid artery at its origin. 3. Congenitally hypoplastic right vertebral artery The above report was generated using voice recognition software. It may contain grammatical, syntax or spelling errors. Electronically signed by: Ming Arguelles M.D. 08/30/2017 7:37 PM Dictated Date/Time: 08/30/2017 7:33 PM Laboratory Results 08/30/17 16:20 Red Blood Count 4.52, Mean Corpuscular Volume 91.8, Mean Corpuscular Hemoglobin 31.6, Mean Corpuscular Hemoglobin Concent 34.5, Mean Platelet Volume 9.9, Neutrophils (%) (Auto) 78.3, Lymphocytes (%) (Auto) 12.1, Monocytes (%) (Auto) 8.9, Eosinophils (%) (Auto) 0.0, Basophils (%) (Auto) 0.1, Neutrophils # (Auto) 8.26, Lymphocytes # (Auto) 1.28, Monocytes # (Auto) 0.94, Eosinophils # (Auto) 0.00, Basophils # (Auto) 0.01 08/30/17 16:20 Test 08/30/17 16:20 08/30/17 16:30 08/30/17 17:15 08/30/17 17:20 White Blood Count 10.55 K/uL (4.8-10.8) Red Blood Count 4.52 M/uL (4.2-5.4) Hemoglobin 14.3 g/dL (12.0-16.0) Hematocrit 41.5 % (37-47) Mean Corpuscular Volume 91.8 fL (80-100) Mean Corpuscular Hemoglobin 31.6 pg (25-34) Mean Corpuscular Hemoglobin Concent 34.5 g/dl (32-36) Platelet Count 210 K/uL (130-400) Mean Platelet Volume 9.9 fL (7.4-10.4) Neutrophils (%) (Auto) 78.3 % Lymphocytes (%) (Auto) 12.1 % Monocytes (%) (Auto) 8.9 % Eosinophils (%) (Auto) 0.0 % Basophils (%) (Auto) 0.1 % Neutrophils # (Auto) 8.26 K/uL (1.4-6.5) Lymphocytes # (Auto) 1.28 K/uL (1.2-3.4) Monocytes # (Auto) 0.94 K/uL (0.11-0.59) Eosinophils # (Auto) 0.00 K/uL (0-0.5) Basophils # (Auto) 0.01 K/uL (0-0.2) RDW Standard Deviation 40.9 fL (36.4-46.3) RDW Coefficient of Variation 12.1 % (11.5-14.5) Immature Granulocyte % (Auto) 0.6 % Immature Granulocyte # (Auto) 0.06 K/uL (0.00-0.02) Anion Gap 12.0 mmol/L (3-11) Estimated GFR () 99.0 Estimated GFR (Non- 85.4 BUN/Creatinine Ratio 10.4 (10-20) Calcium Level 9.7 mg/dl (8.5-10.1) Total Bilirubin 0.7 mg/dl (0.2-1) Direct Bilirubin mg/dl (0-0.2) Aspartate Amino Transf (AST/SGOT) 28 U/L (15-37) Alanine Aminotransferase (ALT/SGPT) 32 U/L (12-78) Alkaline Phosphatase 101 U/L (45-117) Troponin I < 0.015 ng/ml (0-0.045) Total Protein 7.7 gm/dl (6.4-8.2) Albumin 3.5 gm/dl (3.4-5.0) Lipase 76 U/L (73-393) Chemistry Specimen Hemolysis Influenza Type A Antigen Neg for Influ A (NEG) Influenza Type B Antigen Neg for Influ B (NEG) Urine Color YELLOW Urine Appearance CLEAR (CLEAR) Urine pH 5.0 (4.5-7.5) Urine Specific Hydro 1.021 (1.000-1.030) Urine Protein NEG (NEG) Urine Glucose (UA) 3+ (NEG) Urine Ketones 3+ (NEG) Urine Occult Blood 1+ (NEG) Urine Nitrite NEG (NEG) Urine Bilirubin NEG (NEG) Urine Urobilinogen NEG (NEG) Urine Leukocyte Esterase NEG (NEG) Urine WBC (Auto) 0 /hpf (0-5) Urine RBC (Auto) 0-4 /hpf (0-4) Urine Hyaline Casts (Auto) 0 /lpf (0-5) Urine Epithelial Cells (Auto) 10-20 /lpf (0-5) Urine Bacteria (Auto) NEG (NEG) Venous Blood pH 7.44 (7.36-7.41) Venous Blood Partial Pressure CO2 43 mmHg (38.0-50.0) Venous Blood Partial Pressure O2 27 mmHg Venous Blood HCO3 29 mmol/L Venous Blood Oxygen Saturation > 60.0 % Venous Blood Base Excess 4.3 mEq/L Laboratory results reviewed by me Medications Administered Medications (Trade) Dose Ordered Sig/Ronit Route Start Time Stop Time Status Last Admin Dose Admin Sodium Chloride 500 ml @ 999 mls/hr Q31M STAT IV 08/30/17 15:40 08/30/17 16:10 DC 08/30/17 15:40 999 MLS/HR ECG Per My Interpretation Indication: altered mental status Rate (beats per minute): 82 Rhythm: sinus rhythm Findings: PAC, no acute ischemic change, left axis deviation ED Course 152: The patient was evaluated in room A12. A complete history and physical exam was performed. 2007: I discussed the patient with Dr. Enciso [facility] - he will evaluate the patient for further treatment. 2009: I reevaluated the patient, who was resting. Discussed the test findings and treatment plan with her family. They verbalized complete agreement of the treatment plan. Medical Decision I reviewed the patient's past medical history, medications, and the nursing notes as described above. Differential diagnosis: Etiologies such as metabolic, infection, hypo/hyperglycemia, electrolyte abnormalities, cardiac sources, intracerebral event, toxicologic, neurologic, as well as others were entertained. The patient is a 77-year-old woman with a past medical history of dementia who presents emergency Department with worsening mental status and functional status since yesterday in the setting of being discharged yesterday from a recent admission for similar symptoms determined to be a combination of her worsening dementia and her medications per hpi. On arrival the patient is fatigued appearing but in no acute distress, arousable to loud voice, afebrile stable vital signs. She has pronounced expressive aphasia and when she responds to questions she is unable to formulate any coherent work order. Otherwise the patient will move all extremities equally with painful stimulus but has difficulty consistently following commands. I discussed with the patient's daughter at the bedside who was with the patient during her hospitalization and she reports that the patient is significantly different from the day of discharge and that she was at that time spontaneously alert and while she would have intermittent difficulty with speech she would frequently be able to communicate coherent thoughts. However, he reports that last night she was given her evening medications and "has been sleeping ever since." During the patient's last admission the decision was made to discontinue the patient's Ativan, tramadol, Zyprexa patient was put on Seroquel daily at bedtime. Of note, the patient had otherwise negative workup including CAT scan as well as MRI albeit limited due to the patient's agitation. Workup today unremarkable including WBC within normal limits and chemistry (though with glucose in the 200s.) CTA of the head and neck was negative for any urgent vessel occlusion or ischemia. Chest x-ray unremarkable. The patient was reassessed and appeared marginally improved from earlier after IV fluids. However, still different from her discharge status per family. Of note it was recommended on her discharge that the patient be placed in a senior living facility, and the family declined at that time preferring discharge to home with 24-hour care. However they feel they're unable to care for the patient at this time given that they feel she is worse than when she was discharged. Thus, will admit for further evaluation and possible placement. Case was d/w CAREY Shipley hospitalist, who will admit the patient for further management. Medication Reconcilliation Current Medication List: was personally reviewed by me Blood Pressure Screening Patient's blood pressure: Normal blood pressure Blood pressure disposition: Did not require urgent referral Consults Time Called: 2007 Consulting Physician: CAREY Shipley Returned Call: 2007 I discussed the patient with CAREY Shipley - he will evaluate the patient for further treatment. Impression Primary Impression: Altered mental status Additional Impressions: Dementia Aphasia Scribe Attestation The scribe's documentation has been prepared under my direction and personally reviewed by me in its entirety. I confirm that the note above accurately reflects all work, treatment, procedures, and medical decision making performed by me. Departure Information Dispostion Being Evaluated By Hospitalist Referrals Asim Davis M.D. (PCP) Forms HOME CARE DOCUMENTATION FORM, IMPORTANT VISIT INFORMATION Patient Instructions My [facility] Problem Qualifiers
[2017-08-30 17:02] LABS: INFLUENZA B ANTIGEN Neg for Influ B (NEG)
[2017-08-30 17:27] LABS: BASO % 0.1 %; BASO ABS # 0.01 K/uL (0-0.2); HEMATOCRIT 41.5 % (37-47); HEMOGLOBIN 14.3 g/dL (12.0-16.0); IG# 0.06 K/uL (0.00-0.02); LYMPH % 12.1 %; LYMPH ABS # 1.28 K/uL (1.2-3.4); MEAN CELL VOLUME 91.8 fL (80-100); MEAN CORPUSCULAR HEMOGLOBIN 31.6 pg (25-34); MEAN CORPUSCULAR HGB CONC 34.5 g/dl (32-36); MEAN PLATELET VOLUME 9.9 fL (7.4-10.4); MONO % 8.9 %; MONO ABS # 0.94 K/uL (0.11-0.59); NEUT % 78.3 %; NEUT ABS # 8.26 K/uL (1.4-6.5); PLATELET COUNT 210 K/uL (130-400); RED CELL DISTRIBUTION WIDTH CV 12.1 % (11.5-14.5); RED CELL DISTRIBUTION WIDTH SD 40.9 fL (36.4-46.3); WHITE BLOOD COUNT 10.55 K/uL (4.8-10.8)
[2017-08-30 18:02] LABS: ALBUMIN 3.5 gm/dl (3.4-5.0); ALKALINE PHOSPHATASE 101 U/L (45-117); ALT/SGPT 32 U/L (12-78); AST/SGOT 28 U/L (15-37); BLOOD UREA NITROGEN 7 mg/dl (7-18); CALCIUM 9.7 mg/dl (8.5-10.1); CARBON DIOXIDE 26 mmol/L (21-32); CREATININE 0.67 mg/dl (0.60-1.20); GLUCOSE 223 mg/dl (70-99); LIPASE 76 U/L (73-393); SODIUM 136 mmol/L (136-145); TOTAL PROTEIN 7.7 gm/dl (6.4-8.2)
--- NOTE | 2017-08-30 19:32 | DIAGNOSTIC IMAGING REPORT ---
ANGIOGRAPHY HEAD COMBO HISTORY: Mental status change mental status change TECHNIQUE: Multiaxial CT images of the head were performed both before and after the intravenous administration of contrast to evaluate the major cerebral vessels. Maximum intensity projection images were also obtained. A dose lowering technique was utilized adhering to the principles of ALARA. COMPARISON: 08/27/2017 FINDINGS: There is no mass, hematoma, midline shift, or acute infarct. Visualized intracranial internal carotid arteries, distal vertebral arteries, and basilar artery are widely patent. There is no significant stenosis, occlusion, or aneurysm seen within the bilateral ACAs, MCAs, or photogrammetric engineer. Mild/moderate scattered atelectatic change. No high-grade stenotic process. No enhancing lesion. Small calcified tentorial meningioma previously described. Moderate chronic small vessel change of aging. IMPRESSION: No significant stenosis, occlusion, or aneurysm within the [place]. Moderate scattered atherosclerotic change. No major stenosis within limitations of moderate patient motion. Age-related chronic small vessel change. The above report was generated using voice recognition software. It may contain grammatical, syntax or spelling errors. Electronically signed by: Ming Arguelles M.D. 08/30/2017 7:31 PM Dictated Date/Time: 08/30/2017 7:25 PM
--- NOTE | 2017-08-30 19:38 | DIAGNOSTIC IMAGING REPORT ---
NECK ANGIO WITH CONTRAST HISTORY: Mental status change TECHNIQUE: Multiaxial CT images of the neck were performed following the intravenous administration of contrast to evaluate the major cervical vessels. Maximum intensity projection images were also obtained. All measurements were calculated based on NASCET criteria. A dose lowering technique was utilized adhering to the principles of ALARA. COMPARISON STUDY: None. FINDINGS: The aortic arch and proximal great vessels are widely patent. There is no significant stenosis, occlusion, or dissection identified within the bilateral common carotid, internal carotid, or vertebral arteries. Right vertebral artery is congenitally hypoplastic. Moderate plaque formation of the carotid bifurcations on the left and to a lesser extent right. No evidence for a high-grade or critical stenosis. 50-60% stenosis left internal carotid artery at its origin. IMPRESSION: 1. Moderate plaque formation left and to a lesser extent right carotid bifurcations. 2. 50-60% stenosis left internal carotid artery at its origin. 3. Congenitally hypoplastic right vertebral artery The above report was generated using voice recognition software. It may contain grammatical, syntax or spelling errors. Electronically signed by: Ming Arguelles M.D. 08/30/2017 7:37 PM Dictated Date/Time: 08/30/2017 7:33 PM
--- NOTE | 2017-08-30 22:30 | History and Physical ---
History & Physical Date & Time of Service: Aug 30, 2017 at 22:30 Chief Complaint: AMS Primary Care Physician: Asim Davis M.D. History of Present Illness Source: family, hospital records The patient presents to the emergency department after visiting nurses at home were unable to wake her up during their visit there earlier in the day. Family was able to ultimately wake her up, but they reported that she was unable to respond to questions correctly. The patient had been recently admitted to [facility] from August 27 August 29, and had been started on seroquel by psychiatry at the time of discharge. Patient also does have a history of SDAT. She is a DO NOT RESUSCITATE. Family does note, that Dr. Davis had stopped all of her dementia medications approximately 1 month ago due to potential side effects. Family notes that the patient does tend to be very sensitive to medications. The patient is unable to contribute to her history of present illness due to altered mental state, and information is supplied by her 2 daughters in attendance. Past Medical/Surgical History Medical Problems: (1) Diabetes Status: Chronic (2) Influenza A Status: Resolved Surgical Problems: (1) S/P hernia repair Status: Resolved Family History Diabetes mellitus Social History Smoking Status: Never Smoker Smokeless Tobacco Use: No Alcohol Use: none Drug Use: none Marital Status: Occupational Status: retired Immunizations History of Influenza Vaccine: Unknown History of Tetanus Vaccine?: Unknown History of Pneumococcal: Unknown History of Hepatitis B Vaccine: Unknown Multi-Drug Resistant Organisms History of MDRO: No Allergies Coded Allergies: Sulfa Antibiotics (Verified Allergy, Mild, "SULFA DRUGS": RASH, 08/27/17) Home Medications Scheduled Atorvastatin (Lipitor), 10 MG PO HS Gabapentin (Gabapentin), 300 MG PO HS Levothyroxine Sodium (Synthroid), 125 MCG PO DAILY Meloxicam (Mobic), 7.5 MG PO DAILY Memantine HCl (Memantine HCl), 10 MG PO BID Quetiapine Fumarate (Seroquel), 25 MG PO HS Scheduled PRN Quetiapine Fumarate (Seroquel), 25 MG PO QAM PRN for Agitation Review of Systems Per family members, as the patient has not been able to respond to questioning, she has not had chest pain, palpitations, shortness of breath, dyspnea on exertion, cough, lower extremity swelling, sore throat, fevers, chills, sweats, weight change, fatigue, nausea, vomiting, diarrhea , constipation, abdominal pain, pelvic pain, blood in urine or stool, dysuria, urinary frequency or urgency, lightheadedness , dizziness, headache, rash, abnormal bruising or bleeding, change in generalized arthralgias or myalgias, back or neck pain, or night sweats. The review of systems is otherwise negative other than for that already noted above, and at least 10 systems have been reviewed. Physical Exam Vital Signs Date Time Temp Pulse Resp B/P (MAP) Pulse Ox O2 Delivery O2 Flow Rate FiO2 08/30/17 21:25 73 16 116/95 98 Room Air 08/30/17 20:44 74 08/30/17 20:10 71 16 187/67 96 Room Air 08/30/17 19:07 37.7 80 24 208/137 97 Room Air 08/30/17 17:29 78 18 95 Room Air 08/30/17 16:54 83 08/30/17 15:00 37.1 81 16 165/94 97 Room Air The patient is unresponsive, normocephalic and atraumatic, lying in bed and in no acute distress, showing periodic mild myoclonic jerks. HEENT--PERRL, EOMI, mucous membranes and oropharynx dry. Neck--supple. No JVD. No bruits. Thyroid normal, trachea midline, no adenopathy. Heart--normal S1 and S2. No murmurs, rubs or gallops. Lungs--clear bilaterally, no respiratory distress, no accessory muscle use. Abdomen--normal bowel sounds and soft. Nontender. Nondistended. Extremities--no cyanosis or clubbing. No edema. There are good distal pulses b/ l. Dermatologic--normal skin turgor, normal color, no abnormal lymph nodes, no rash. Neurologic--cranial nerves II through XII grossly intact. Rheumatologic-Deffered- Psychiatric--unresponsive. Diagnostics Laboratory Results Results Past 24 Hours Test 08/30/17 16:20 08/30/17 16:30 08/30/17 17:15 08/30/17 17:20 Range/Units White Blood Count 10.55 4.8-10.8 K/uL Red Blood Count 4.52 4.2-5.4 M/uL Hemoglobin 14.3 12.0-16.0 g/dL Hematocrit 41.5 37-47 % Mean Corpuscular Volume 91.8 80-100 fL Mean Corpuscular Hemoglobin 31.6 25-34 pg Mean Corpuscular Hemoglobin Concent 34.5 32-36 g/dl Platelet Count 210 130-400 K/uL Mean Platelet Volume 9.9 7.4-10.4 fL Neutrophils (%) (Auto) 78.3 % Lymphocytes (%) (Auto) 12.1 % Monocytes (%) (Auto) 8.9 % Eosinophils (%) (Auto) 0.0 % Basophils (%) (Auto) 0.1 % Neutrophils # (Auto) 8.26 1.4-6.5 K/uL Lymphocytes # (Auto) 1.28 1.2-3.4 K/uL Monocytes # (Auto) 0.94 0.11-0.59 K/uL Eosinophils # (Auto) 0.00 0-0.5 K/uL Basophils # (Auto) 0.01 0-0.2 K/uL RDW Standard Deviation 40.9 36.4-46.3 fL RDW Coefficient of Variation 12.1 11.5-14.5 % Immature Granulocyte % (Auto) 0.6 % Immature Granulocyte # (Auto) 0.06 0.00-0.02 K/uL Sodium Level 136 136-145 mmol/L Potassium Level 4.0 3.5-5.1 mmol/L Chloride Level 99 98-107 mmol/L Carbon Dioxide Level 26 21-32 mmol/L Anion Gap 12.0 3-11 mmol/L Blood Urea Nitrogen 7 7-18 mg/dl Creatinine 0.67 0.60-1.20 mg/dl Estimated GFR () 99.0 Estimated GFR (Non- 85.4 BUN/Creatinine Ratio 10.4 10-20 Random Glucose 223 70-99 mg/dl Calcium Level 9.7 8.5-10.1 mg/dl Total Bilirubin 0.7 0.2-1 mg/dl Direct Bilirubin 0-0.2 mg/dl Aspartate Amino Transf (AST/SGOT) 28 15-37 U/L Alanine Aminotransferase (ALT/SGPT) 32 12-78 U/L Alkaline Phosphatase 101 45-117 U/L Troponin I < 0.015 0-0.045 ng/ml Total Protein 7.7 6.4-8.2 gm/dl Albumin 3.5 3.4-5.0 gm/dl Lipase 76 73-393 U/L Chemistry Specimen Hemolysis Influenza Type A Antigen Neg for Influ A NEG Influenza Type B Antigen Neg for Influ B NEG Urine Color YELLOW Urine Appearance CLEAR CLEAR Urine pH 5.0 4.5-7.5 Urine Specific [place] 1.021 1.000-1.030 Urine Protein NEG NEG Urine Glucose (UA) 3+ NEG Urine Ketones 3+ NEG Urine Occult Blood 1+ NEG Urine Nitrite NEG NEG Urine Bilirubin NEG NEG Urine Urobilinogen NEG NEG Urine Leukocyte Esterase NEG NEG Urine WBC (Auto) 0 0-5 /hpf Urine RBC (Auto) 0-4 0-4 /hpf Urine Hyaline Casts (Auto) 0 0-5 /lpf Urine Epithelial Cells (Auto) 10-20 0-5 /lpf Urine Bacteria (Auto) NEG NEG Venous Blood pH 7.44 7.36-7.41 Venous Blood Partial Pressure CO2 43 38.0-50.0 mmHg Venous Blood Partial Pressure O2 27 mmHg Venous Blood HCO3 29 mmol/L Venous Blood Oxygen Saturation > 60.0 % Venous Blood Base Excess 4.3 mEq/L Microbiology Results 08/30/17 Blood Culture, Received Pending 08/30/17 Blood Culture, Received Pending Diagnostic Radiology Patient Name: BRENNEN CORMIER Unit Number: [id number] Dictated: 08/30/171924 Transcribed: 08/30/171924 MS Printed Date/Time: [~ rep prt dt]/[~ rep prt tm] [~ rep ct labl] - [~ rep ct ivnm] [facility] [place] [address] Dictated: 08/30/171924 Transcribed: 08/30/171924 MS Printed Date/Time: [~ rep prt dt]/[~ rep prt tm] [~ rep ct labl] - [~ rep ct ivnm] DIAGNOSTIC IMAGING [~ rep ct add3]] ANGIOGRAPHY HEAD COMBO HISTORY: Mental status change mental status change TECHNIQUE: Multiaxial CT images of the head were performed both before and after the intravenous administration of contrast to evaluate the major cerebral vessels. Maximum intensity projection images were also obtained. A dose lowering technique was utilized adhering to the principles of ALARA. COMPARISON: 08/27/2017 FINDINGS: There is no mass, hematoma, midline shift, or acute infarct. Visualized intracranial internal carotid arteries, distal vertebral arteries, and basilar artery are widely patent. There is no significant stenosis, occlusion, or aneurysm seen within the bilateral ACAs, MCAs, or weaver needle loom. Mild/moderate scattered atelectatic change. No high-grade stenotic process. No enhancing lesion. Small calcified tentorial meningioma previously described. Moderate chronic small vessel change of aging. IMPRESSION: No significant stenosis, occlusion, or aneurysm within the [place]. Moderate scattered atherosclerotic change. No major stenosis within limitations of moderate patient motion. Age-related chronic small vessel change. The above report was generated using voice recognition software. It may contain grammatical, syntax or spelling errors. Electronically signed by: Ming Arguelles M.D. 08/30/2017 7:31 PM Dictated Date/Time: 08/30/2017 7:25 PM The status of this report is Signed. Draft = Not yet reviewed or approved by Radiologist. Signed = Reviewed and approved by Radiologist. <AttendingPhy></AttendingPhy> <FamilyPhy>Asim Davis M.D.</FamilyPhy> < PrimaryPhy>Asim Davis M.D.</PrimaryPhy> <UnitNumber>[id number]</UnitNumber > <VisitNumber>[id number]</VisitNumber> <PatientName>GENIABRENNEN</ PatientName> <DateOfBirth>1940</DateOfBirth> <Location>[facility]</Location> < ServiceDate>08/30/17</ServiceDate> <MNE>ESINDI</MNE> <OrderingPhy>Hema Gilbert M.D.</OrderingPhy> <OrderingPhyMNE>f rep ord dr jansen</OrderingPhyMNE> <DictatingPhyMNE>f rep dict dr jansen</DictatingPhyMNE> <CCListMNE>f rep ct inderjit</ CCListMNE> <AdmittingPhyMNE>f pt admit dr jansen</AdmittingPhyMNE> <AttendingPhyMNE >f pt attend dr jansen</AttendingPhyMNE> <ConsultingPhyMNE>f pt consult dr jansen</ConsultingPhyMNE> <FamilyPhyMNE>f pt fam dr jansen</FamilyPhyMNE> <OtherPhyMNE>f pt other dr jansen</OtherPhyMNE> < PrimaryPhyMNE>f pt prim care dr jansen</PrimaryPhyMNE> <ReferringPhyMNE>f pt referring dr jansen</ReferringPhyMNE> Patient Name: BRENNEN CORMIER Unit Number: [id number] Dictated: 08/30/171609 Transcribed: 08/30/171609 MS Printed Date/Time: [~ rep prt dt]/[~ rep prt tm] [~ rep ct labl] - [~ rep ct ivnm] [facility] Radiology Department [place] [id number] Dictated: 08/30/171609 Transcribed: 08/30/171609 MS Printed Date/Time: [~ rep prt dt]/[~ rep prt tm] [~ rep ct labl] - [~ rep ct ivnm] [~ rep ct add3]] CHEST ONE VIEW PORTABLE CLINICAL HISTORY: Evaluate Fever/Sepsis dyspnea COMPARISON STUDY: 08/27/2017 FINDINGS: The bones soft tissues and hemidiaphragms are normal. The cardiomediastinal silhouette is normal. The lungs are clear. The pulmonary vasculature is normal. IMPRESSION: Negative chest. The above report was generated using voice recognition software. It may contain grammatical, syntax or spelling errors. Electronically signed by: Ming Arguelles M.D. 08/30/2017 4:10 PM Dictated Date/Time: 08/30/2017 4:10 PM The status of this report is Signed. Draft = Not yet reviewed or approved by Radiologist. Signed = Reviewed and approved by Radiologist. <AttendingPhy></AttendingPhy> <FamilyPhy>Asim Davis M.D.</FamilyPhy> < PrimaryPhy>Asim Davis M.D.</PrimaryPhy> <UnitNumber>[id number]</UnitNumber > <VisitNumber>[id number]</VisitNumber> <PatientName>RAYMUNDO CORMIERITA Brandyn</ PatientName> <DateOfBirth>1940</DateOfBirth> <Location>[facility]</Location> < ServiceDate>08/30/17</ServiceDate> <MNE>ESINDI</MNE> <OrderingPhy>Hema Gilbert M.D.</OrderingPhy> <OrderingPhyMNE>f rep ord dr jansen</OrderingPhyMNE> <DictatingPhyMNE>f rep dict dr jansen</DictatingPhyMNE> <CCListMNE>f rep ct mne</ CCListMNE> <AdmittingPhyMNE>f pt admit dr jansen</AdmittingPhyMNE> <AttendingPhyMNE >f pt attend dr jansen</AttendingPhyMNE> <ConsultingPhyMNE>f pt consult dr jansen</ConsultingPhyMNE> <FamilyPhyMNE>f pt fam dr jansen</FamilyPhyMNE> <OtherPhyMNE>f pt other dr jansen</OtherPhyMNE> < PrimaryPhyMNE>f pt prim care dr jansen</PrimaryPhyMNE> <ReferringPhyMNE>f pt referring dr jansen</ReferringPhyMNE> Patient Name: BRENNEN CORMIER Unit Number: [id number] Dictated: 08/30/171932 Transcribed: 08/30/171932 MS Printed Date/Time: [~ rep prt dt]/[~ rep prt tm] [~ rep ct labl] - [~ rep ct ivnm] [facility] [place] [address] Dictated: 08/30/171932 Transcribed: 08/30/171932 MS Printed Date/Time: [~ rep prt dt]/[~ rep prt tm] [~ rep ct labl] - [~ rep ct ivnm] [~ rep ct add3]] NECK ANGIO WITH CONTRAST HISTORY: Mental status change TECHNIQUE: Multiaxial CT images of the neck were performed following the intravenous administration of contrast to evaluate the major cervical vessels. Maximum intensity projection images were also obtained. All measurements were calculated based on NASCET criteria. A dose lowering technique was utilized adhering to the principles of ALARA. COMPARISON STUDY: None. FINDINGS: The aortic arch and proximal great vessels are widely patent. There is no significant stenosis, occlusion, or dissection identified within the bilateral common carotid, internal carotid, or vertebral arteries. Right vertebral artery is congenitally hypoplastic. Moderate plaque formation of the carotid bifurcations on the left and to a lesser extent right. No evidence for a high-grade or critical stenosis. 50-60% stenosis left internal carotid artery at its origin. IMPRESSION: 1. Moderate plaque formation left and to a lesser extent right carotid bifurcations. 2. 50-60% stenosis left internal carotid artery at its origin. 3. Congenitally hypoplastic right vertebral artery The above report was generated using voice recognition software. It may contain grammatical, syntax or spelling errors. Electronically signed by: Ming Arguelles M.D. 08/30/2017 7:37 PM Dictated Date/Time: 08/30/2017 7:33 PM The status of this report is Signed. Draft = Not yet reviewed or approved by Radiologist. Signed = Reviewed and approved by Radiologist. <AttendingPhy></AttendingPhy> <FamilyPhy>Asim Davis M.D.</FamilyPhy> < PrimaryPhy>Asim Davis M.D.</PrimaryPhy> <UnitNumber>[id number]</UnitNumber > <VisitNumber>[id number]</VisitNumber> <PatientName>BRENNEN CORMIER</ PatientName> <DateOfBirth>1940</DateOfBirth> <Location>[facility]</Location> < ServiceDate>08/30/17</ServiceDate> <MNE>ESINDI</MNE> <OrderingPhy>Hema Gilbert M.D.</OrderingPhy> <OrderingPhyMNE>f rep ord dr jansen</OrderingPhyMNE> <DictatingPhyMNE>f rep dict dr jansen</DictatingPhyMNE> <CCListMNE>f rep ct inderjit</ CCListMNE> <AdmittingPhyMNE>f pt admit dr jansen</AdmittingPhyMNE> <AttendingPhyMNE >f pt attend dr jansen</AttendingPhyMNE> <ConsultingPhyMNE>f pt consult dr jansen</ConsultingPhyMNE> <FamilyPhyMNE>f pt fam dr jansen</FamilyPhyMNE> <OtherPhyMNE>f pt other dr jansen</OtherPhyMNE> < PrimaryPhyMNE>f pt prim care dr jansen</PrimaryPhyMNE> <ReferringPhyMNE>f pt referring dr jansen</ReferringPhyMNE> EKG EKG shows normal sinus rhythm at 82 beats minute, PACs, left axis deviation, no acute ST-T changes. PACs are new compared to most recent EKG. Impression Assessment and Plan Altered mental state/progressive underlying dementia-- Admitted to the telemetry unit Hold all psychotropic medications including Seroquel CTA of head and neck primarily significant for LICA 50-60% stenosis. Consult psychiatry to manage psychotropic medications. Hypothyroidism-- Hold levothyroxine until able to take oral medications Hyperlipidemia-- Hold atorvastatin until able to take oral medications Consult director social service to discuss long-term living situation Level of Care Telemetry Advanced Directives Existing Advance Directive: No Existing Living Will: No Existing Power of Ultra Sound Technician: No Resuscitation Status FULL RESUSCITATION VTE Prophylaxis VTE Risk Assessment Done? Y/N: Yes Risk Level: Moderate Given or contraindicated: SCD's
[2017-08-30] MEDS ORDERED: MELO7.5T5 PO (23:02)
[2017-08-30] MEDS ORDERED: IV FLUIDS COMPLETED PRN (23:15)
[2017-08-30 23:49] VITALS: BP 154/76; PULSE 74; TEMP 37.7; Ht 152.4 cm; Wt 78.0 kg
[2017-08-30 23:52] VITALS: BP 184/80; PULSE 83; TEMP 37; O2SAT 95
[2017-08-31] VITALS (8 sets, daily range): BP systolic 127–190; BP diastolic 53–97; PULSE 71–100; TEMP 37.2–37.7; O2SAT 90–98
[2017-08-31] MEDS: NSS + 20MEQ KCL 1000ML 1,000 ML IV SCH ×3 (00:26→20:43)
[2017-08-31] MEDS: METOPROLOL TARTRATE 1 MG/ML VIAL IV PRN ×2 (07:32→13:53)
[2017-08-31] MEDS ORDERED: NURSING DECISION MEDICATION ORDER SCH (11:15)
[2017-08-31] MEDS ORDERED: MICONAZOLE NITRATE POWDER 43 GM EXT PRN (11:45)
[2017-08-31] MEDS: INSULIN ASPART 100 UNITS/ML 3 ML PEN SC SCH ×3 (12:31→20:49)
[2017-08-31] MEDS ORDERED: QUETIAPINE FUMARATE 25 MG TAB PO PRN (14:00)
[2017-08-31] MEDS ORDERED: HydrALAZINE HCL 20 MG/ML VIAL IV. PRN (14:15)
--- NOTE | 2017-08-31 16:01 | Medical Student: [facility] ---
Med Student Progress Note Date of Service Aug 31, 2017. Subjective Pt evaluation today including: conversation w/ family, physical exam, chart review Pain: none PO Intake: none Layne is a 77 year old woman with a history of Alzheimer's who presented to the ED on 08/30/17 at night with altered mental status. Her most recent prior admission was from 08/27/17 to 08/29/17, also for altered mental status and agitation. Per psych/neuro consults performed then, it appears that at baseline Ms. Diamond can only communicate with 1-3 sentences. Additionally, it seems that she was recently taken off Aricept, Namenda, and metformin by her PCP to reduce her medication burden on 08/11/17. She had been on the former two medications since 2014 when she was diagnosed with Alzheimer by her PCP. During that admission, she had been having more agitation and was placed on Seroquel. On , Ms. Diamond was found to be difficult to arouse from sleeping and when eventually awoken, she was less responsive and could not answer questions. Her two daughters were present during interview and say their mother is far from baseline at the moment. Says she has also been complaining of shoulder pain. History is limited today due to AMS. Ms. Diamond was able to respond with one or two word answers. She denied pain or hunger. Had no complaints when asked. Made quiet, repetitive clicking noises throughout the interview. Was oriented to self and place (told me she was in [place]). Objective Vital Signs Date Time Temp Pulse Resp B/P (MAP) Pulse Ox O2 Delivery O2 Flow Rate FiO2 08/31/17 13:53 72 08/31/17 12:00 Room Air 08/31/17 11:59 37.2 90 20 190/85 (120) 97 Room Air 08/31/17 09:10 71 168/97 (120) 08/31/17 08:00 Room Air 08/31/17 07:32 187/76 08/31/17 07:18 37.7 86 18 187/76 (113) 92 Room Air 08/31/17 04:00 98 Room Air 08/31/17 03:59 37.3 76 18 162/53 (89) 97 Room Air 08/31/17 00:00 98 Room Air 08/30/17 23:52 37.0 83 18 184/80 (114) 95 Room Air 08/30/17 23:49 37.7 74 16 154/76 Room Air 08/30/17 22:30 72 16 154/76 98 Room Air 08/30/17 21:25 73 16 116/95 98 Room Air 08/30/17 20:44 74 08/30/17 20:10 71 16 187/67 96 Room Air 08/30/17 19:07 37.7 80 24 208/137 97 Room Air 08/30/17 17:29 78 18 95 Room Air 08/30/17 16:54 83 Physical Exam General Appearance: + mild distress Neck: supple, no adenopathy Cardiovascular: regular rate, rhythm, no edema, no gallop, no JVD, no murmur Abdomen: normal bowel sounds, non tender, soft Extremities: no pedal edema, + calf tenderness (may have been taken aback by palpation) Neurologic/Psychiatric: + disoriented (oriented to person and place) Skin: normal color, warm/dry Laboratory Results Last 24 Hours Test 08/30/17 16:20 08/30/17 16:30 08/30/17 17:15 08/30/17 17:20 White Blood Count 10.55 K/uL Red Blood Count 4.52 M/uL Hemoglobin 14.3 g/dL Hematocrit 41.5 % Mean Corpuscular Volume 91.8 fL Mean Corpuscular Hemoglobin 31.6 pg Mean Corpuscular Hemoglobin Concent 34.5 g/dl Platelet Count 210 K/uL Mean Platelet Volume 9.9 fL Neutrophils (%) (Auto) 78.3 % Lymphocytes (%) (Auto) 12.1 % Monocytes (%) (Auto) 8.9 % Eosinophils (%) (Auto) 0.0 % Basophils (%) (Auto) 0.1 % Neutrophils # (Auto) 8.26 K/uL Lymphocytes # (Auto) 1.28 K/uL Monocytes # (Auto) 0.94 K/uL Eosinophils # (Auto) 0.00 K/uL Basophils # (Auto) 0.01 K/uL RDW Standard Deviation 40.9 fL RDW Coefficient of Variation 12.1 % Immature Granulocyte % (Auto) 0.6 % Immature Granulocyte # (Auto) 0.06 K/uL Sodium Level 136 mmol/L Potassium Level 4.0 mmol/L Chloride Level 99 mmol/L Carbon Dioxide Level 26 mmol/L Anion Gap 12.0 mmol/L Blood Urea Nitrogen 7 mg/dl Creatinine 0.67 mg/dl Estimated GFR () 99.0 Estimated GFR (Non- 85.4 BUN/Creatinine Ratio 10.4 Random Glucose 223 mg/dl Calcium Level 9.7 mg/dl Total Bilirubin 0.7 mg/dl Direct Bilirubin mg/dl Aspartate Amino Transf (AST/SGOT) 28 U/L Alanine Aminotransferase (ALT/SGPT) 32 U/L Alkaline Phosphatase 101 U/L Troponin I < 0.015 ng/ml Total Protein 7.7 gm/dl Albumin 3.5 gm/dl Lipase 76 U/L Chemistry Specimen Hemolysis Influenza Type A Antigen Neg for Influ A Influenza Type B Antigen Neg for Influ B Urine Color YELLOW Urine Appearance CLEAR Urine pH 5.0 Urine Specific [place] 1.021 Urine Protein NEG Urine Glucose (UA) 3+ Urine Ketones 3+ Urine Occult Blood 1+ Urine Nitrite NEG Urine Bilirubin NEG Urine Urobilinogen NEG Urine Leukocyte Esterase NEG Urine WBC (Auto) 0 /hpf Urine RBC (Auto) 0-4 /hpf Urine Hyaline Casts (Auto) 0 /lpf Urine Epithelial Cells (Auto) 10-20 /lpf Urine Bacteria (Auto) NEG Venous Blood pH 7.44 Venous Blood Partial Pressure CO2 43 mmHg Venous Blood Partial Pressure O2 27 mmHg Venous Blood HCO3 29 mmol/L Venous Blood Oxygen Saturation > 60.0 % Venous Blood Base Excess 4.3 mEq/L Test 08/31/17 07:29 08/31/17 11:31 Bedside Glucose 206 mg/dl 211 mg/dl Assessment and Plan Assessment and Plan: In summary, Ms. Diamond is a 77 year old woman with a history of severe Alzheimer who presents with altered mental status after starting on Seroquel during her recent hospital admission. Altered mental status due to medication changes -to reduce agitation, would try seroquel 12.5 mg PO vs. 25 mg. -would restart Aricept 10 mg PO qD and Namenda 10 mg PO BID. Generally, Aricept and Namenda are intended for the attenuation for mild cognitive decline and are not typically used as medications for behavioral aspects of Alzheimer's. However , given the time course of symptoms and with them coinciding with the removal of the two medications, we can try restarting her medications to see if she improves and becomes more oriented. Hypertension -BPs have been quite elevated (150-200s SBP) as compared to recent prior visits (150s SBP) despite her being calm and somewhat lethargic at times -metoprolol 5 mg has not effectively controlled her blood pressure, therefore, switch to hydralazine 10 mg Shoulder pain -X-rays 2 views of the affected shoulder
--- NOTE | 2017-08-31 16:08 | Progress Note ---
Subjective Date of Service: Aug 31, 2017. Subjective Pt evaluation today including: conversation w/ patient, physical exam, lab review, review of studies, review of inpatient medication list Pain: no pain PO Intake: minimal, ate some lunch with assistance Voiding: requires PRN straight cath reviewed recent records and spoke with patient's daughters in the room abrupt behavior changes after 08/11 when Namenda and Aricept were stopped stopped because of advanced dementia, trying to limit pills reviewed prior records with neurology and psychiatry consultations reviewed prior imaging with brain MRI reviewed labs and imaging from this admission talked with daughters for 20 minutes at the bedside Problem List Medical Problems: (1) Agitation Status: Acute (2) Aphasia Status: Acute (3) Vomiting Status: Acute Review of Systems cannot review due to confusion Medications Current Inpatient Medications Medications (Trade) Dose Ordered Sig/Ronit Route Start Time Stop Time Status Last Admin Dose Admin Ioversol (Optiray 320) 125 ml UD PRN IV 08/30/17 16:00 09/03/17 15:59 Potassium Chloride/Sodium Chloride 1,000 ml @ 100 mls/hr Q10H IV 08/30/17 23:30 09/29/17 23:29 08/31/17 09:11 100 MLS/HR Metoprolol Tartrate (Lopressor Iv) 5 mg Q4 PRN IV 08/30/17 22:15 09/29/17 22:14 08/31/17 13:53 5 MG Miscellaneous (Iv Fluids Completed) 1 ea PRN PRN N/A 08/30/17 23:15 08/30/18 23:14 Insulin Aspart (novoLOG ASPART) SLIDING SCALE G... ACHS SC 08/31/17 11:00 09/30/17 10:59 08/31/17 12:31 2 UNITS Miconazole Nitrate (Desenex Powder) 1 appln PRN PRN EXT 08/31/17 11:45 09/30/17 11:44 Donepezil HCl (Aricept Tab) 5 mg QAM PO 09/01/17 09:00 10/01/17 08:59 Memantine (Namenda Tab) 5 mg BID PO 08/31/17 21:00 09/30/17 20:59 Quetiapine Fumarate (seroQUEL TAB) 12.5 mg Q12 PRN PO 08/31/17 14:00 09/30/17 13:59 Hydralazine HCl (HydrALAZINE INJ) 10 mg Q6 PRN IV. 08/31/17 14:15 09/30/17 14:14 Objective Vital Signs Date Time Temp Pulse Resp B/P (MAP) Pulse Ox O2 Delivery O2 Flow Rate FiO2 08/31/17 13:53 72 08/31/17 12:00 Room Air 08/31/17 11:59 37.2 90 20 190/85 (120) 97 Room Air 08/31/17 09:10 71 168/97 (120) 08/31/17 08:00 Room Air 08/31/17 07:32 187/76 08/31/17 07:18 37.7 86 18 187/76 (113) 92 Room Air 08/31/17 04:00 98 Room Air 08/31/17 03:59 37.3 76 18 162/53 (89) 97 Room Air 08/31/17 00:00 98 Room Air 08/30/17 23:52 37.0 83 18 184/80 (114) 95 Room Air 08/30/17 23:49 37.7 74 16 154/76 Room Air 08/30/17 22:30 72 16 154/76 98 Room Air 08/30/17 21:25 73 16 116/95 98 Room Air 08/30/17 20:44 74 08/30/17 20:10 71 16 187/67 96 Room Air 08/30/17 19:07 37.7 80 24 208/137 97 Room Air 08/30/17 17:29 78 18 95 Room Air 08/30/17 16:54 83 Physical Exam General Appearance: WD/WN, no apparent distress Eyes: normal inspection, EOMI, sclerae normal ENT: normal ENT inspection, hearing grossly normal, pharynx normal Neck: supple, no adenopathy, no JVD, trachea midline Respiratory/Chest: chest non-tender, lungs clear, normal breath sounds, no respiratory distress, no accessory muscle use Cardiovascular: regular rate, rhythm, no edema, no gallop, no JVD, no murmur Abdomen: normal bowel sounds, non tender, soft, no organomegaly Extremities: normal range of motion, normal inspection, no pedal edema, no calf tenderness, pelvis stable, + pertinent finding (right shoulder tender to palpation) 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, no motor/sensory deficits, alert, + depressed affect, + disoriented Skin: normal color, warm/dry, no rash Laboratory Results Last 24 Hours Test 08/30/17 16:20 08/30/17 16:30 08/30/17 17:15 08/30/17 17:20 White Blood Count 10.55 K/uL Red Blood Count 4.52 M/uL Hemoglobin 14.3 g/dL Hematocrit 41.5 % Mean Corpuscular Volume 91.8 fL Mean Corpuscular Hemoglobin 31.6 pg Mean Corpuscular Hemoglobin Concent 34.5 g/dl Platelet Count 210 K/uL Mean Platelet Volume 9.9 fL Neutrophils (%) (Auto) 78.3 % Lymphocytes (%) (Auto) 12.1 % Monocytes (%) (Auto) 8.9 % Eosinophils (%) (Auto) 0.0 % Basophils (%) (Auto) 0.1 % Neutrophils # (Auto) 8.26 K/uL Lymphocytes # (Auto) 1.28 K/uL Monocytes # (Auto) 0.94 K/uL Eosinophils # (Auto) 0.00 K/uL Basophils # (Auto) 0.01 K/uL RDW Standard Deviation 40.9 fL RDW Coefficient of Variation 12.1 % Immature Granulocyte % (Auto) 0.6 % Immature Granulocyte # (Auto) 0.06 K/uL Sodium Level 136 mmol/L Potassium Level 4.0 mmol/L Chloride Level 99 mmol/L Carbon Dioxide Level 26 mmol/L Anion Gap 12.0 mmol/L Blood Urea Nitrogen 7 mg/dl Creatinine 0.67 mg/dl Estimated GFR () 99.0 Estimated GFR (Non- 85.4 BUN/Creatinine Ratio 10.4 Random Glucose 223 mg/dl Calcium Level 9.7 mg/dl Total Bilirubin 0.7 mg/dl Direct Bilirubin mg/dl Aspartate Amino Transf (AST/SGOT) 28 U/L Alanine Aminotransferase (ALT/SGPT) 32 U/L Alkaline Phosphatase 101 U/L Troponin I < 0.015 ng/ml Total Protein 7.7 gm/dl Albumin 3.5 gm/dl Lipase 76 U/L Chemistry Specimen Hemolysis Influenza Type A Antigen Neg for Influ A Influenza Type B Antigen Neg for Influ B Urine Color YELLOW Urine Appearance CLEAR Urine pH 5.0 Urine Specific [place] 1.021 Urine Protein NEG Urine Glucose (UA) 3+ Urine Ketones 3+ Urine Occult Blood 1+ Urine Nitrite NEG Urine Bilirubin NEG Urine Urobilinogen NEG Urine Leukocyte Esterase NEG Urine WBC (Auto) 0 /hpf Urine RBC (Auto) 0-4 /hpf Urine Hyaline Casts (Auto) 0 /lpf Urine Epithelial Cells (Auto) 10-20 /lpf Urine Bacteria (Auto) NEG Venous Blood pH 7.44 Venous Blood Partial Pressure CO2 43 mmHg Venous Blood Partial Pressure O2 27 mmHg Venous Blood HCO3 29 mmol/L Venous Blood Oxygen Saturation > 60.0 % Venous Blood Base Excess 4.3 mEq/L Test 08/31/17 07:29 08/31/17 11:31 Bedside Glucose 206 mg/dl 211 mg/dl Assessment and Plan - 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 slow decline for months but abrupt change with increased agitation, confusion , poor appetite after 08/11 per neurology recommendations from last admission, will resume Aricept and Namenda to see if behavior improves only use Seroquel PRN at 12.5mg, was very sedating at 25mg, don't use scheduled no evidence of stroke on MRI from prior admission, no evidence of infection at this point assume that the abrupt change is related to pharmacy - Dementia: at home she needs to be in hospital bed, HOB > 30 degrees to prevent aspiration - DM: diet controlled, Metformin stopped in July - Hypothyroidism: Synthroid make full admit, try to improve behavior with medications
[2017-08-31] MEDS: MEMANTINE 5 MG TAB PO SCH (20:34)
[2017-09-01] VITALS: BP 162/84; PULSE 72; TEMP 36.7; O2SAT 96
[2017-09-01 04:10] VITALS: BP 164/95; PULSE 68; TEMP 36.6; O2SAT 95
[2017-09-01] MEDS: METOPROLOL TARTRATE 1 MG/ML VIAL IV PRN (04:31)
[2017-09-01 05:40] VITALS: BP 142/80; PULSE 61
[2017-09-01] MEDS: NSS + 20MEQ KCL 1000ML 1,000 ML IV SCH ×2 (05:45→15:33)
[2017-09-01 07:57] VITALS: BP 137/82; PULSE 71; TEMP 36.3; O2SAT 97
--- NOTE | 2017-09-01 08:20 | DIAGNOSTIC IMAGING REPORT ---
R SHOULDER MIN 2 VIEWS ROUTINE CLINICAL HISTORY: pain in shoulder pain COMPARISON: None. DISCUSSION: Anterior dislocation/subluxation subluxation right shoulder. No well-defined evidence for fracture. Moderate degenerative change of the glenohumeral and acromioclavicular joint regions. There is no evidence for soft tissue swelling. IMPRESSION: Anterior subluxation/dislocation right shoulder. The above report was generated using voice recognition software. It may contain grammatical, syntax or spelling errors. Electronically signed by: Ming Arguelles M.D. 09/01/2017 8:18 AM Dictated Date/Time: 09/01/2017 8:15 AM
[2017-09-01] MEDS: DONEPEZIL HCL 5 MG TAB PO SCH (08:29)
[2017-09-01] MEDS: MEMANTINE 5 MG TAB PO SCH ×2 (08:30→19:29)
[2017-09-01] MEDS: INSULIN ASPART 100 UNITS/ML 3 ML PEN SC SCH ×4 (08:37→20:56)
[2017-09-01] MEDS ORDERED: TRAMADOL HCL 50 MG TAB PO PRN (08:45)
--- NOTE | 2017-09-01 10:24 | Orthopedic Consultation ---
Orthopedic Consultation Date of Consultation: Sep 01, 2017. Attending Physician: Jonnie Osborn D.O. Reason for Consultation: Anterior shoulder subluxation/ dislocation History of Present Illness Patient admitted with mental status changes. Patient with history of mental status changes over several years. Patient has dementia. Incidental x-ray finding noted. Past Medical/Surgical History Medical Problems: (1) Agitation Status: Acute (2) Aphasia Status: Acute (3) Vomiting Status: Acute Family History Diabetes mellitus Social History Smoking Status: Never Smoker Smokeless Tobacco Use: No Alcohol Use: none Drug Use: none Marital Status: Housing Status: lives with significant other Occupation Status: retired Allergies Coded Allergies: Sulfa Antibiotics (Verified Allergy, Mild, "SULFA DRUGS": RASH, 08/27/17) Home Medications Scheduled Atorvastatin (Lipitor), 10 MG PO HS Gabapentin (Gabapentin), 300 MG PO HS Levothyroxine Sodium (Synthroid), 125 MCG PO DAILY Meloxicam (Mobic), 7.5 MG PO DAILY Memantine HCl (Memantine HCl), 10 MG PO BID Quetiapine Fumarate (Seroquel), 25 MG PO HS Scheduled PRN Quetiapine Fumarate (Seroquel), 25 MG PO QAM PRN for Agitation Current Inpatient Medications Current Inpatient Medications Medications (Trade) Dose Ordered Sig/Ronit Route Start Time Stop Time Status Last Admin Dose Admin Ioversol (Optiray 320) 125 ml UD PRN IV 08/30/17 16:00 09/03/17 15:59 Potassium Chloride/Sodium Chloride 1,000 ml @ 100 mls/hr Q10H IV 08/30/17 23:30 09/29/17 23:29 09/01/17 05:45 100 MLS/HR Miscellaneous (Iv Fluids Completed) 1 ea PRN PRN N/A 08/30/17 23:15 08/30/18 23:14 Insulin Aspart (novoLOG ASPART) SLIDING SCALE G... ACHS SC 08/31/17 11:00 09/30/17 10:59 09/01/17 08:37 1 UNITS Miconazole Nitrate (Desenex Powder) 1 appln PRN PRN EXT 08/31/17 11:45 09/30/17 11:44 Donepezil HCl (Aricept Tab) 5 mg QAM PO 09/01/17 09:00 10/01/17 08:59 09/01/17 08:29 5 MG Memantine (Namenda Tab) 5 mg BID PO 08/31/17 21:00 09/30/17 20:59 09/01/17 08:30 5 MG Quetiapine Fumarate (seroQUEL TAB) 12.5 mg Q12 PRN PO 08/31/17 14:00 09/30/17 13:59 Hydralazine HCl (HydrALAZINE INJ) 10 mg Q6 PRN IV. 08/31/17 14:15 09/30/17 14:14 Tramadol HCl (Ultram Tab) 50 mg Q4H PRN PO 09/01/17 08:45 10/01/17 08:44 09/01/17 09:13 50 MG Physical Exam Date Time Temp Pulse Resp B/P (MAP) Pulse Ox O2 Delivery O2 Flow Rate FiO2 09/01/17 08:05 Room Air 09/01/17 07:57 36.3 71 18 137/82 (100) 97 Room Air 09/01/17 05:40 61 142/80 (100) 09/01/17 04:31 68 164/95 09/01/17 04:10 36.6 68 16 164/95 (118) 95 Room Air 09/01/17 04:00 Room Air 09/01/17 00:00 36.7 72 16 162/84 (110) 96 Room Air 09/01/17 00:00 Room Air 08/31/17 20:00 Room Air 08/31/17 19:19 37.5 100 20 174/71 (105) 90 Room Air 08/31/17 16:01 37.2 73 18 127/80 (96) 93 Room Air 08/31/17 16:00 Room Air 08/31/17 13:53 72 08/31/17 12:00 Room Air 08/31/17 11:59 37.2 90 20 190/85 (120) 97 Room Air General Appearance: no apparent distress Head: normocephalic Extremities/Musculoskelatal: + pertinent finding (patient's left arm and shoulder function normally normal motor sensory exam. Patient's right shoulder she holds across her belly and can raise to shoulder height. I can externally rotate her arm to about 15 with arm at side forward elevate in flexion to 90 and abduct to about 80 and has pain over those ranges of motion. Neurological exams intact motor sensory exam intact.) Laboratory Results Last 24 Hours Test 08/31/17 11:31 08/31/17 16:22 08/31/17 20:47 09/01/17 07:25 Bedside Glucose 211 mg/dl 231 mg/dl 195 mg/dl 172 mg/dl Assessment & Plan Chronic anterior shoulder subluxation dislocation. I reviewed her old chest x- rays and her shoulders been subluxed or dislocated since March 2016. Patient is a nonsurgical candidate. Patient has not responded well to steroid injections in the past in other joints according to her family. No treatment is recommended. If treatment were entertained and reversed total shoulder replacement will be required and with patient's mental status she would not be able to comprehend the appropriate protective activity or rehabilitation required to undergo such procedure.
--- NOTE | 2017-09-01 13:26 | Progress Note ---
Subjective Date of Service: Sep 01, 2017. Subjective Pt evaluation today including: conversation w/ patient, conversation w/ family , physical exam, review of studies, review of inpatient medication list Pain: right shoulder PO Intake: improved Voiding: no voiding problems more alert and conversive, calmer today eating a little more today reviewed shoulder x-ray of dislocation, ortho says it is chronic, nothing to do updated daughter at the bedside Problem List Medical Problems: (1) Agitation Status: Acute (2) Aphasia Status: Acute (3) Vomiting Status: Acute Review of Systems cannot review due to dementia Medications Current Inpatient Medications Medications (Trade) Dose Ordered Sig/Ronit Route Start Time Stop Time Status Last Admin Dose Admin Ioversol (Optiray 320) 125 ml UD PRN IV 08/30/17 16:00 09/03/17 15:59 Potassium Chloride/Sodium Chloride 1,000 ml @ 100 mls/hr Q10H IV 08/30/17 23:30 09/29/17 23:29 09/01/17 05:45 100 MLS/HR Miscellaneous (Iv Fluids Completed) 1 ea PRN PRN N/A 08/30/17 23:15 08/30/18 23:14 Insulin Aspart (novoLOG ASPART) SLIDING SCALE G... ACHS SC 08/31/17 11:00 09/30/17 10:59 09/01/17 12:33 4 UNITS Miconazole Nitrate (Desenex Powder) 1 appln PRN PRN EXT 08/31/17 11:45 09/30/17 11:44 Donepezil HCl (Aricept Tab) 5 mg QAM PO 09/01/17 09:00 10/01/17 08:59 09/01/17 08:29 5 MG Memantine (Namenda Tab) 5 mg BID PO 08/31/17 21:00 09/30/17 20:59 09/01/17 08:30 5 MG Quetiapine Fumarate (seroQUEL TAB) 12.5 mg Q12 PRN PO 08/31/17 14:00 09/30/17 13:59 Hydralazine HCl (HydrALAZINE INJ) 10 mg Q6 PRN IV. 08/31/17 14:15 09/30/17 14:14 Tramadol HCl (Ultram Tab) 50 mg Q4H PRN PO 09/01/17 08:45 10/01/17 08:44 09/01/17 09:13 50 MG Objective Vital Signs Date Time Temp Pulse Resp B/P (MAP) Pulse Ox O2 Delivery O2 Flow Rate FiO2 09/01/17 08:05 Room Air 09/01/17 07:57 36.3 71 18 137/82 (100) 97 Room Air 09/01/17 05:40 61 142/80 (100) 09/01/17 04:31 68 164/95 09/01/17 04:10 36.6 68 16 164/95 (118) 95 Room Air 09/01/17 04:00 Room Air 09/01/17 00:00 36.7 72 16 162/84 (110) 96 Room Air 09/01/17 00:00 Room Air 08/31/17 20:00 Room Air 08/31/17 19:19 37.5 100 20 174/71 (105) 90 Room Air 08/31/17 16:01 37.2 73 18 127/80 (96) 93 Room Air 08/31/17 16:00 Room Air 08/31/17 13:53 72 Physical Exam General Appearance: WD/WN, no apparent distress Eyes: normal inspection, EOMI, sclerae normal ENT: normal ENT inspection, hearing grossly normal, pharynx normal Neck: supple, no adenopathy, no JVD, trachea midline Respiratory/Chest: chest non-tender, lungs clear, normal breath sounds, no respiratory distress, no accessory muscle use Cardiovascular: regular rate, rhythm, no edema, no gallop, no JVD, no murmur Abdomen: normal bowel sounds, non tender, soft, no organomegaly Extremities: normal inspection, no pedal edema, no calf tenderness, pelvis stable, + pertinent finding (right shoulder tender, decreased ROM) 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, no motor/sensory deficits, alert, normal mood/affect, oriented x 3 Skin: normal color, warm/dry, no rash Lymphatic: no adenopathy Laboratory Results Last 24 Hours Test 08/31/17 16:22 08/31/17 20:47 09/01/17 07:25 09/01/17 11:42 Bedside Glucose 231 mg/dl 195 mg/dl 172 mg/dl 257 mg/dl Assessment and Plan - 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 slow decline for months but abrupt change with increased agitation, confusion , poor appetite after 08/11 per neurology recommendations from last admission, will resume Aricept and Namenda to see if behavior improves only use Seroquel PRN at 12.5mg, was very sedating at 25mg, don't use scheduled no evidence of stroke on MRI from prior admission, no evidence of infection at this point assume that the abrupt change is related to pharmacy some improvement today, will continue Namenda 5mg BID and Aricept 5mg daily - Dementia: at home she needs to be in hospital bed, HOB > 30 degrees to prevent aspiration needs frequent re-positioning that cannot be done in normal bed - DM: diet controlled, Metformin stopped in July - Hypothyroidism: Synthroid - Weakness, unsteadiness: cannot ambulate safely with cane or walker, cannot balance, cannot follow commands/cues to balance - Right shoulder anterior dislocation: chronic per ortho, no reduction needed continue medical regimen today, possible d/c home tomorrow
--- NOTE | 2017-09-01 13:40 | Medical Student: [facility] ---
Med Student Progress Note Date of Service Sep 01, 2017. Subjective Pt evaluation today including: conversation w/ patient, physical exam Pain: none PO Intake: normal diet Voiding: requires PRN straight cath Layne is a 77 year old female with a history of severe Alzheimer who was admitted on 08/31/17 for altered mental status. She was admitted from 08/27-, also for altered mental status. At the most recent prior admission, she had been taken off Aricept and Namenda two weeks prior to that and was very agitated upon admission. She was placed on Seroquel upon discharge but was unable to be awoken at home or respond to questions. Yesterday she was restarted on Aricept 5 mg po qD and Namenda 5 mg po BID. Seroquel was restarted at 12.5 mg po prn. Layne was sitting up in her chair eating breakfast this morning. She denied pain, hunger, or difficulty voiding. She moved her right arm without pain or discomfort. Interview was limited due to Alzheimer disease and expressive and receptive aphasia. Family was not present at the time of visit. Review of Systems Constitutional: + see HPI Notes: Could not be performed due to Alzheimer disease and expressive/receptive aphasia. Objective Vital Signs Date Time Temp Pulse Resp B/P (MAP) Pulse Ox O2 Delivery O2 Flow Rate FiO2 09/01/17 08:05 Room Air 09/01/17 07:57 36.3 71 18 137/82 (100) 97 Room Air 09/01/17 05:40 61 142/80 (100) 09/01/17 04:31 68 164/95 09/01/17 04:10 36.6 68 16 164/95 (118) 95 Room Air 09/01/17 04:00 Room Air 09/01/17 00:00 36.7 72 16 162/84 (110) 96 Room Air 09/01/17 00:00 Room Air 08/31/17 20:00 Room Air 08/31/17 19:19 37.5 100 20 174/71 (105) 90 Room Air 08/31/17 16:01 37.2 73 18 127/80 (96) 93 Room Air 08/31/17 16:00 Room Air 08/31/17 13:53 72 Physical Exam General Appearance: WD/WN, no apparent distress Neck: supple, no adenopathy Respiratory/Chest: chest non-tender, lungs clear, normal breath sounds Cardiovascular: regular rate, rhythm Abdomen: normal bowel sounds, non tender, soft Neurologic/Psychiatric: + disoriented (oriented to self only) Laboratory Results Last 24 Hours Test 08/31/17 16:22 08/31/17 20:47 09/01/17 07:25 09/01/17 11:42 Bedside Glucose 231 mg/dl 195 mg/dl 172 mg/dl 257 mg/dl Assessment and Plan Assessment and Plan: Layne is a 77-year-old female with severe Alzheimer disease who was admitted on 08/31/17 for AMS. She was restarted on lower doses of Aricept and Namenda, and will try Seroquel 12.5 mg po prn for agitation. Altered mental status -Layne appears less lethargic and more alert today than she did yesterday on . Is closer to baseline. Continue on Aricept 5mg po qD and Namenda 5 mg po BID. HTN -Blood pressures were persistently elevated overnight in the 160s but have dropped into the 140s during the day on 09/01 -continue with hydralazine 10 mg Chronic right shoulder subluxation/dislocation -per orthopedics consultation, continue to manage conservatively with a brace and ensure patient does not use R arm. -would not be a candidate for surgery for reduction DM -continue insulin sliding scale
[2017-09-01 16:00] VITALS: BP 130/72; PULSE 59; TEMP 36.8; O2SAT 96
[2017-09-01] MEDS ORDERED: NURSING VERBAL MED ORDER STA (17:07)
[2017-09-02 00:08] VITALS: BP 126/66; PULSE 77; TEMP 36.8; O2SAT 96
[2017-09-02] MEDS: NSS + 20MEQ KCL 1000ML 1,000 ML IV SCH ×2 (01:25→11:31)
[2017-09-02 04:28] VITALS: BP 138/67; PULSE 67; TEMP 36.8; O2SAT 96
[2017-09-02 07:50] VITALS: BP 149/80; PULSE 20; PULSE 96; TEMP 36.6; O2SAT 95
[2017-09-02] MEDS: INSULIN ASPART 100 UNITS/ML 3 ML PEN SC SCH ×4 (08:02→20:55)
[2017-09-02] MEDS: DONEPEZIL HCL 5 MG TAB PO SCH (08:08)
[2017-09-02] MEDS: MEMANTINE 5 MG TAB PO SCH ×2 (08:08→20:55)
[2017-09-02 14:55] VITALS: BP 133/56; PULSE 68; TEMP 36.5; O2SAT 96
--- NOTE | 2017-09-02 15:51 | Medical Student: [facility] ---
Med Student Progress Note Date of Service Sep 02, 2017. Subjective Pt evaluation today including: physical exam, chart review, lab review Pain: none PO Intake: fluids, some food Voiding: incontinence Layne is a 77 year old female with a history of severe Alzheimer who was admitted on 08/31/17 for altered mental status. She was admitted from 08/27-, also for altered mental status. During that admission, she had been taken off Aricept and Namenda two weeks prior to reduce medication burden and side effects and was very agitated upon admission. She was placed on Seroquel upon discharge but was somnolent at home and unable to answer questions. On 08/31 she was restarted on Aricept 5 mg po qD and Namenda 5 mg po BID to see if it would improve behavior. Seroquel was restarted at 12.5 mg po prn. Layne was sitting up in her chair eating breakfast this morning with a WEB ANALYST at her side. WEB ANALYST reports that she was agitated earlier in the morning (e.g., was throwing items at her) and Seroquel 12.5 mg was given. No immediate problems with administration. She denied pain, hunger, or difficulty voiding. WEB ANALYST reports her using her right arm without problems despite the dislocation. Interview was limited due to Alzheimer disease and expressive and receptive aphasia. Family was not present at the time of visit. Review of Systems Constitutional: + see HPI Notes: Unable to obtain secondary to Alzheimer disease and expressive/receptive aphasia. Objective Vital Signs Date Time Temp Pulse Resp B/P (MAP) Pulse Ox O2 Delivery O2 Flow Rate FiO2 09/02/17 14:55 36.5 68 20 133/56 (81) 96 09/02/17 08:00 Room Air 09/02/17 07:50 36.6 96 20 149/80 (103) 95 Room Air 09/02/17 04:28 36.8 67 18 138/67 (90) 96 Room Air 09/02/17 00:08 36.8 77 20 126/66 (86) 96 Room Air 09/02/17 00:00 Room Air 09/01/17 16:00 36.8 59 18 130/72 (91) 96 Room Air 09/01/17 16:00 96 Room Air Physical Exam General Appearance: WD/WN, no apparent distress Neck: supple, no adenopathy, thyroid normal Respiratory/Chest: chest non-tender, lungs clear, normal breath sounds, no respiratory distress, no accessory muscle use Cardiovascular: regular rate, rhythm, no edema, no gallop, no JVD, no murmur Abdomen: normal bowel sounds, non tender, soft Extremities: non-tender, normal inspection, no pedal edema Neurologic/Psychiatric: alert, + disoriented (oriented only to self) Laboratory Results Last 24 Hours Test 09/01/17 16:13 09/01/17 20:31 09/02/17 07:42 09/02/17 11:55 Bedside Glucose 304 mg/dl 248 mg/dl 234 mg/dl 203 mg/dl Assessment and Plan Assessment and Plan: Layne is a 77-year-old female with severe Alzheimer disease who was admitted on 08/31/17 for AMS. She has been on lower doses of Aricept and Namenda since , and has received a dose of Seroquel 12.5 mg po prn for agitation on 09/02. She tolerated it but was sleeping for much of the day. Altered mental status -Layne is at a similar level of alertness from yesterday on 09/01 and is remaining closer to baseline. Continue on Aricept 5mg po qD and Namenda 5 mg po BID. -monitor for the remainder of the day to see how she does on Seroquel HTN -Blood pressures have normalized over the past 24 hours - 120s-130s SBP and 60s- 80s DBP. -continue with hydralazine 10 mg Chronic right shoulder subluxation/dislocation -per orthopedics consultation, continue to manage conservatively with a brace and ensure patient does not use R arm. -would not be a candidate for surgery for reduction DM -continue insulin sliding scale -arrange for outpatient care for optimizing blood sugar control at home Plan for discharge tomorrow provided she is continuing to tolerate Seroquel. Continued [facility] stay due to: other Discharge planning: home with home health
[2017-09-02 16:00] VITALS: O2SAT 96
--- NOTE | 2017-09-02 20:31 | Progress Note ---
Subjective Date of Service: Sep 02, 2017. Subjective Pt evaluation today including: conversation w/ patient, conversation w/ family , physical exam, lab review, review of inpatient medication list Pain: right shoulder PO Intake: poor Voiding: no voiding problems patient was agitated in the morning, received Seroquel 12.5mg slept most of the day, difficult to arouse not as severe as a reaction to 25mg but certainly sensitive to the medication discussed with patient's daughters difficult to find balance between controlling agitation and not making her too lethargic asked if there were other options, she uses to take Zyprexa, not sure if that was effective would want to avoid benzos due to increasing confusion in demented patients will reassess tomorrow to decide on whether she is going home Problem List Medical Problems: (1) Agitation Status: Acute (2) Aphasia Status: Acute (3) Vomiting Status: Acute Review of Systems cannot review due to dementia Medications Current Inpatient Medications Medications (Trade) Dose Ordered Sig/Ronit Route Start Time Stop Time Status Last Admin Dose Admin Ioversol (Optiray 320) 125 ml UD PRN IV 08/30/17 16:00 09/03/17 15:59 Potassium Chloride/Sodium Chloride 1,000 ml @ 100 mls/hr Q10H IV 08/30/17 23:30 09/29/17 23:29 09/02/17 11:31 100 MLS/HR Miscellaneous (Iv Fluids Completed) 1 ea PRN PRN N/A 08/30/17 23:15 08/30/18 23:14 Insulin Aspart (novoLOG ASPART) SLIDING SCALE G... ACHS SC 08/31/17 11:00 09/30/17 10:59 09/02/17 18:06 11 UNITS Miconazole Nitrate (Desenex Powder) 1 appln PRN PRN EXT 08/31/17 11:45 09/30/17 11:44 Donepezil HCl (Aricept Tab) 5 mg QAM PO 09/01/17 09:00 10/01/17 08:59 09/02/17 08:08 5 MG Memantine (Namenda Tab) 5 mg BID PO 08/31/17 21:00 09/30/17 20:59 09/02/17 08:08 5 MG Quetiapine Fumarate (seroQUEL TAB) 12.5 mg Q12 PRN PO 08/31/17 14:00 09/30/17 13:59 09/02/17 08:13 12.5 MG Hydralazine HCl (HydrALAZINE INJ) 10 mg Q6 PRN IV. 08/31/17 14:15 09/30/17 14:14 Tramadol HCl (Ultram Tab) 50 mg Q4H PRN PO 09/01/17 08:45 10/01/17 08:44 09/01/17 09:13 50 MG Objective Vital Signs Date Time Temp Pulse Resp B/P (MAP) Pulse Ox O2 Delivery O2 Flow Rate FiO2 09/02/17 16:00 96 Room Air 09/02/17 14:55 36.5 68 20 133/56 (81) 96 09/02/17 08:00 Room Air 09/02/17 07:50 36.6 96 20 149/80 (103) 95 Room Air 09/02/17 04:28 36.8 67 18 138/67 (90) 96 Room Air 09/02/17 00:08 36.8 77 20 126/66 (86) 96 Room Air 09/02/17 00:00 Room Air Physical Exam General Appearance: WD/WN, no apparent distress Eyes: normal inspection, EOMI, sclerae normal ENT: normal ENT inspection, hearing grossly normal, pharynx normal Neck: supple, no adenopathy, no JVD, trachea midline Respiratory/Chest: chest non-tender, lungs clear, normal breath sounds, no respiratory distress, no accessory muscle use Cardiovascular: regular rate, rhythm, no edema, no gallop, no JVD, no murmur Abdomen: normal bowel sounds, non tender, soft, no organomegaly Extremities: normal range of motion, non-tender, normal inspection, no pedal edema, no calf tenderness, pelvis stable Neurologic/Psychiatric: inpatient auditor II-XII nml as tested, no motor/sensory deficits, + disoriented, + pertinent finding (lethargic, disoriented after Seroquel) Skin: normal color, warm/dry, no rash Laboratory Results Last 24 Hours Test 09/01/17 20:31 09/02/17 07:42 09/02/17 11:55 09/02/17 16:34 Bedside Glucose 248 mg/dl 234 mg/dl 203 mg/dl 305 mg/dl Assessment and Plan - 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 slow decline for months but abrupt change with increased agitation, confusion , poor appetite after 08/11 per neurology recommendations from last admission, will resume Aricept and Namenda to see if behavior improves some improvement on 09/01, but very agitated this AM tried Seroquel 12.5mg, sedated most of the day will hold on further Seroquel reassess patient tomorrow no evidence of stroke on MRI from prior admission, no evidence of infection at this point assume that the abrupt change is related to pharmacy - Dementia: at home she needs to be in hospital bed, HOB > 30 degrees to prevent aspiration needs frequent re-positioning that cannot be done in normal bed hospital bed delivered to her home - DM: diet controlled, Metformin stopped in July - Hypothyroidism: Synthroid - Weakness, unsteadiness: cannot ambulate safely with cane or walker, cannot balance, cannot follow commands/cues to balance will arrange for wheelchair at home - Right shoulder anterior dislocation: chronic per ortho, no reduction needed continue medical regimen, reassess tomorrow for discharge Continued [facility] stay due to: other Discharge planning: home with home health
[2017-09-02 20:57] VITALS: BP 169/83; PULSE 88; TEMP 36.3; O2SAT 95
[2017-09-03] MEDS ORDERED: QUETIAPINE FUMARATE 25 MG TAB PO STA (00:16)
[2017-09-03 01:05] VITALS: BP 130/72; PULSE 68; TEMP 36.8; O2SAT 97
[2017-09-03] MEDS: DONEPEZIL HCL 5 MG TAB PO SCH (07:56)
[2017-09-03] MEDS: MEMANTINE 5 MG TAB PO SCH (07:56)
[2017-09-03] MEDS: INSULIN ASPART 100 UNITS/ML 3 ML PEN SC SCH ×2 (09:51→13:07)
[2017-09-03] MEDS ORDERED: ULT50X PO (12:36)
[2017-09-03] MEDS ORDERED: NMN5 PO (12:36)
[2017-09-03] MEDS ORDERED: ARC5 PO (12:36)
--- NOTE | 2017-09-03 12:56 | Discharge Instructions ---
Discharge Instructions Date of Service Sep 03, 2017. Admission Reason for Admission: Altered Mental Status, Dementia Discharge Discharge Diagnosis / Problem: Dementia with behavioral disturbance, lethargy due to Seroquel Discharge Goals Goal(s): Improve function, Improve disease control Activity Recommendations Activity Limitations: resume your previous activity . Instructions / Follow-Up Instructions / Follow-Up Medications: medication list was edited down to try to limit what she needs to take. The medications that were prescribed below are what she has been taking here in the hospital and she has been calmer. - NAMENDA: 5 mg twice a day, this is an initial dose, can titrate up to 10mg twice a day if you feel she is still getting agitated frequently and needing Seroquel often call and discuss any increase in medication with Dr. Davis - ARICEPT: 5mg a day, also, can increase to 10mg daily if behavior still a problem but call and discuss with Dr. Davis - SEROQUEL: take a quarter of a 25mg tablet (6.25mg) every 8 hours as needed for agitation, ONLY TAKE IF NEEDED would recommend taking a quarter tablet in the evenings as a sleep aid, can take this even if she is not agitated if you find that she is still really lethargic in the morning after taking Seroquel prior to sleep, then resort to only taking for agitation spells - ULTRAM: 50mg tablet, take as needed for any pain in right shoulder, could possibly make drowsy so if pain is not severe, try Tylenol 650mg first Removed Neurontin and Lipitor and Mobic from medication list as these things are not essential for her care - MODERATE TO SEVERE DEMENTIA WITH BEHAVIORAL DISTURBANCES as we discussed, the next few weeks will probably be trial and error trying to fine tune medications and her behavior feel that we are the right path resuming Aricept and Namenda as neurology recommended doing this last admission use Seroquel as needed for agitation it is okay if she sleeps 8-10 hours after taking Seroquel, it is intended to make her calm/drowsy but also to give her some clarity best thing for her now is to go back to home environment if she continues to have increased bouts of agitation, then talk with Dr. Davis about increasing Namenda and Aricept back to 10mg doses work up this admission and last admission, no signs of infection, renal function and electrolytes stable, MRI brain without stroke neurology felt that resuming Namenda and Aricept could potentially help behavior psychiatry recommended trying Seroquel for sedation clearly 25mg and 12.5mg of Seroquel is too much and just causes her to sleep as we discussed, she may continue to get worse despite medication adjustments and if this occurs it is likely the progression of her disease if you ever feel that she can no longer be managed at home, our case management team here at the hospital can assist you in placement - right shoulder dislocation: chronic according to orthopedics, just pain control, no intervention FOLLOW UP - Dr. Davis, call if needed, no need for specific hospital follow up since we are just changing medications - neurology, no need for follow up unless there are further questions or behavior gets worse, she saw Dr. Hogan in the hospital so this is who you would request to see Current Hospital Diet Patient's current hospital diet: Diabetes Type 2 Diet Discharge Diet Recommended Diet: Diabetes Type 2 Diet Pending Studies Studies pending at discharge: no Laboratory Results Hemoglobin A1c Test 08/28/17 07:58 Range/Units Estimated Average Glucose 212 mg/dl Hemoglobin A1c 9.0 H 4.5-5.6 % Medical Emergencies . Who to Call and When: Medical Emergencies: If at any time you feel your situation is an emergency, please call 911 immediately. . Non-Emergent Contact Non-Emergency issues call your: Primary Care Provider Call Non-Emergent contact if: you have any medication questions . . "Provider Documentation" section prepared by Jonnie Osborn. . VTE Core Measure Inpt VTE Proph given/why not?: SCD's [place] Drug Monitoring Program Search Results: no issues identified
[2017-09-03] MEDS ORDERED: QUET1TAB30 PO (12:58)
[2017-09-03 13:50] VITALS: BP 130/72; PULSE 68; TEMP 36.8; O2SAT 97
--- NOTE | 2017-09-04 09:00 | Discharge Summary ---
Discharge Summary Date of Service Sep 03, 2017. Discharge Summary Admission Date: Aug 31, 2017 at 16:09 Discharge Date: Sep 03, 2017 Discharge Disposition: Home with services Principal Diagnosis: Dementia with behavior disturbance Problems/Secondary Diagnoses: Sedation due to Seroquel Hypothyroidism DM type II with hyperglycemia Immunizations: Have You Had Influenza Vaccine: Unknown History of Tetanus Vaccine?: Unknown History of Pneumococcal: Unknown History of Hepatitis B Vaccine: Unknown Procedures: none Consultations: none Medication Reconciliation New Medications: Quetiapine Fumarate (Seroquel) 25 Mg Tab 6.25 MG PO Q8 PRN for Anxiety/Agitation, #10 TAB cut into quarter tablet, 1/2 tablet and whole tablet too sedating Donepezil HCl (Donepezil HCl) 5 Mg Tab 5 MG PO QAM, #30 TAB 3 Refills Memantine (Namenda) 5 Mg Tab 5 MG PO BID, #60 TAB 3 Refills Tramadol HCl (Tramadol HCl) 50 Mg Tab 50 MG PO Q4H PRN for Pain, #30 TAB 0 Refills Continued Medications: Levothyroxine Sodium (Synthroid) 125 Mcg Tab 125 MCG PO DAILY Discontinued Medications: Atorvastatin (Lipitor) 10 Mg Tab 10 MG PO HS, TAB Gabapentin (Gabapentin) 300 Mg Cap 300 MG PO HS Meloxicam (Mobic) 7.5 Mg Tab 7.5 MG PO DAILY Memantine HCl (Memantine HCl) 10 Mg Tab 10 MG PO BID Quetiapine Fumarate (Seroquel) 25 Mg Tab 25 MG PO HS, TAB Quetiapine Fumarate (Seroquel) 25 Mg Tab 25 MG PO QAM PRN for Agitation, TAB Discharge Exam Patient got Seroquel 7.5mg at midnight due to agitation, was sleeping in 20 minutes and stayed asleep the rest of the night. In the morning she woke up, was calm, ate most of her breakfast. Long talk with both daughters at the bedside. [place] that patient was good to go home, that the next several weeks would be a trial and error with medications, trying to fine tune her behavior. Discussed that the seroquel would make her sleep, and that that was okay, intended effect of medications. Answered all of their questions. Review of Systems: Constitutional: + problem reported (cannot review due to dementia, patient appeared calm, no distress) Physical Exam: General Appearance: WD/WN, no apparent distress Eyes: normal inspection, EOMI, sclerae normal ENT: normal ENT inspection, hearing grossly normal, pharynx normal Neck: supple, no adenopathy, no JVD, trachea midline Respiratory/Chest: chest non-tender, lungs clear, normal breath sounds, no respiratory distress, no accessory muscle use Cardiovascular: regular rate, rhythm, no edema, no gallop, no JVD, no murmur , normal peripheral pulses Abdomen / GI: normal bowel sounds, non tender, soft, no organomegaly Extremities: normal inspection, no calf tenderness, normal capillary refill , no pedal edema, non-tender, pelvis stable, + pertinent finding (right shoulder , chronic dislocation, decreased ROM) Neurologic/Psychiatric: manager talent acquisition II-XII nml as tested, no motor/sensory deficits , alert, normal mood/affect, normal reflexes, + disoriented, + pertinent finding (verbal responses are not understandable, cooperative, no agitation when discharged) Skin: normal color, warm/dry, no rash Lymphatic: no adenopathy Hospital Course - 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 slow decline for months but abrupt change with increased agitation, confusion , poor appetite after 08/11 at this time, Namenda and Aricept were abruptly stopped in effort to reduce number of medications she was taking per neurology recommendations from last admission, will resume Aricept and Namenda to see if behavior improves behavior improved overall since admission on Namenda 5mg BID and Aricept 5mg daily told daughters to continue this dose, if behavior continues to be a problem then could increase back up to 10mg will use Seroquel 6.25mg at bedtime and can use as needed during the day for agitation 25mg of Seroquel made patient sleep for 24 hours, 12.5mg made her sleep for a little more than 12 hours prescribe 25mg tablets, cut into quarters no evidence of stroke on MRI from prior admission, no evidence of infection - Dementia: at home she needs to be in hospital bed, HOB > 30 degrees to prevent aspiration needs frequent re-positioning that cannot be done in normal bed hospital bed delivered to her home - DM: diet controlled, Metformin stopped in July hyperglycemic episodes here in the hospital, specifically when family would bring in sweets not worth effort to treat with Insulin due to agitation will continue to hold Metformin, trying to limit medications - Hypothyroidism: Synthroid - Weakness, unsteadiness: cannot ambulate safely with cane or walker, cannot balance, cannot follow commands/cues to balance will arrange for wheelchair at home - 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 Discharge Instructions Please refer to the electronic Patient Visit Report (Discharge Instructions) for additional information. Follow-Up Dr. Davis in 1-2 weeks Additional Copies To Asim Davis M.D.
== END 2017-09-03 14:10 | disposition home health service (06) | DRG 884 ==
LOC: EDBD 14:46 → C.EDA 14:48 → C.MED 22:06 → ENRESERV 22:45 → OBSVTOIN 08-31 16:09
PROVIDERS: ADMIT Hospitalist; ATTEND Internal Medicine
DX: F03.91 Unspecified dementia, unspecified severity, with behavioral disturbance (principal); E03.9 Hypothyroidism, unspecified; T43.015A Adverse effect of tricyclic antidepressants, initial encounter; E11.65 Type 2 diabetes mellitus with hyperglycemia; R53.1 Weakness; S43.004A Unspecified dislocation of right shoulder joint, initial encounter; E78.5 Hyperlipidemia, unspecified; Z83.3 Family history of diabetes mellitus; Z88.2 Allergy status to sulfonamides; X58.XXXA Exposure to other specified factors, initial encounter

== ENCOUNTER 2017-11-23 23:30 | Emergency (ER) | payer OTHER ==
[~2017-11-23 23:30] MED LIST changes: +ARC5 PO; -ASPEC81 PO; -ATOR10TA82 PO; -CALCTAB7 PO; -DONE1TAB26 PO; -MEMA10TA PO; +NMN5 PO; +QUET1TAB30 PO; -QUET1TAB91 PO; +SYN125 PO; +ULT50X PO
[2017-11-23 23:37] VITALS: BP 157/84
--- NOTE | 2017-11-23 23:42 | EMERGENCY ROOM VISIT NOTE ---
History Report prepared by Adriana: Ray Walker Under the Supervision of: Dr. Everett Casarez M.D. First contact with patient: 23:31 Chief Complaint: FALL Stated Complaint: FALL History of Present Illness The patient is a 77 year old female who presents to the Emergency Room after a fall. The nurse states the patient fell and hit the left side of her body against the refrigerator. 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 The patient denies any pain when asked. No further information was able to be obtained. HPI limited secondary to the patient's dementia. Source of History: nursing staff History Limited By: dementia Review of Systems ROS limited secondary to the patient's dementia. Past Medical & Surgical Medical Problems: (1) Altered mental status (2) Change in mental status (3) Dementia (4) Diabetes (5) Influenza A (6) UTI (urinary tract infection) Surgical Problems: (1) S/P hernia repair Family History Diabetes mellitus Social History Smoking Status: Never Smoker Drug Use: none Marital Status: Housing Status: lives with significant other Occupation Status: retired Current/Historical Medications Scheduled Donepezil Hydrochloride (Donepezil Hcl), 5 MG PO DAILY Levothyroxine Sodium (Synthroid), 125 MCG PO DAILY Memantine (Namenda), 5 MG PO BID Mirtazapine Soltab (Remeron Soltab), 15 MG PO HS Quetiapine Fumarate (Seroquel), 25 MG PO DIRECTED Scheduled PRN Tramadol Hcl (Ultram), 50 MG PO Q4 PRN for Pain Allergies Coded Allergies: Sulfa Antibiotics (Verified Allergy, Mild, "SULFA DRUGS": RASH, 11/24/17) Physical Exam Vital Signs Date Time Temp Pulse Resp B/P (MAP) Pulse Ox O2 Delivery O2 Flow Rate FiO2 11/24/17 00:30 64 18 98 11/23/17 23:37 78 22 157/84 96 Room Air Physical Exam GENERAL: Patient is well appearing and in no acute distress. Pleasantly demented and humming. Sometimes repeating words. HEAD: Large contusion to the left, posterior scalp that is tender upon palpation. EYES: No scleral icterus, unremarkable pupils. ENT: Mucous membranes moist, no nasal congestion. NECK: No masses appreciated, no meningismus, trachea is midline. RESPIRATORY: No dyspnea. Clear to auscultation and equal bilaterally. No wheeze , no rhonchi. CARDIOVASCULAR: Regular rate and rhythm. No murmurs, rubs, gallops appreciated. GASTROINTESTINAL: Abdomen soft, nontender, no peritonitis. Bowel sounds positive. No masses appreciated. BACK: No midline tenderness, no CVA tenderness EXTREMITIES: Normal motion all extremities, no cyanosis, no edema. NEUROLOGIC: Severely demented, no acute motor or sensory deficits, no focal weakness, cranial nerves grossly intact. SKIN: No rash, no jaundice, no diaphoresis. Medical Decision & Procedures ER Provider Diagnostic Interpretation: X ray results are stated below per my interpretation: Chest: 1 view: No infiltrate, no effusion, normal cardiac border. Rotated right anterior. [facility] results and stated below per my review and radiologist interpretation: ED Course 2334: The patient was evaluated in room C09. A complete history and physical exam was performed. 0007: The nurses informed me the patient is becoming belligerent. 0009: Reevaluated the patient. I had a long discussion with the patient's daughter about the risks of sedation for a CT scan. It is felt that due to the risks of heavy sedation, the daughter would prefer the patient be monitored at home instead of doing a CT scan. Discussed results and discharge instructions: the daughter verbalized understanding and agreement. The patient is ready for discharge. Medical Decision Differential: ICH, Fracture, Cervical Fracture, amongst many other pathologies considered. 77 yr old severely demented female with agitation issues arrives from home following fall. Does have contusion to posterior left scalp without bogginess nor laceration. She is completely acting at her baseline agitation level for daughter. Able to obtain CXR but after this patient just too worked up to get pelvis nor ct head/cspine. Long discussion with daughter and caregiver and decision made that sedating her may be more risky than risk of head bleed/ fracture, especially given they would be very hesitant to ever consider surgery. They feel comfortable taking her home and monitoring there for any evidence of ICH. Reviewed at length symptoms requiring RTED. No indication for labs at this time as this was reported as purely mechanical type fall and vitals looking OK. Head Trauma GCS Score: 15 Medication Reconcilliation Current Medication List: was personally reviewed by me Blood Pressure Screening Patient's blood pressure: Elevated blood pressure Blood pressure disposition: Referred to PCP Impression Primary Impression: Fall Additional Impression: Scalp contusion Scribe Attestation The scribe's documentation has been prepared under my direction and personally reviewed by me in its entirety. I confirm that the note above accurately reflects all work, treatment, procedures, and medical decision making performed by me. Departure Information Dispostion Home / Self-Care Referrals Asim Davis M.D. (PCP) Forms HOME CARE DOCUMENTATION FORM, IMPORTANT VISIT INFORMATION Patient Instructions My [facility] Additional Instructions Monitor at home closely. If seizures, altered mental status, vomiting, stroke like symptoms or other acute concerns call 911 and return immediately. Use Tylenol if patient appears in discomfort. We are always here if you feel something is wrong. Problem Qualifiers
[2017-11-24] MEDS ORDERED: DONE5TAB26 PO (00:03)
[2017-11-24] MEDS ORDERED: NMN5 PO (00:05)
[2017-11-24] MEDS ORDERED: ULT/50 PO (00:07)
[2017-11-24] MEDS ORDERED: MIRT15TA2 PO (00:08)
[2017-11-24] MEDS ORDERED: QUET1TAB30 PO (00:09)
[2017-11-24 00:30] VITALS: PULSE 64; O2SAT 98
--- NOTE | 2017-11-24 07:21 | DIAGNOSTIC IMAGING REPORT ---
SINGLE VIEW CHEST CLINICAL HISTORY: Fall. Dementia. FINDINGS: An AP, portable, upright chest radiograph is compared to study dated 08/30/2017. The examination is degraded by portable technique and patient rotation. The heart is top normal for projection and there is atherosclerotic calcification of the thoracic aorta. The pulmonary vasculature is noncongested. There is bibasilar atelectasis. No focal airspace consolidation or large pleural effusion is identified. No pneumothorax is seen. The skeletal structures are osteopenic. The bony thorax is grossly intact. IMPRESSION: No acute cardiopulmonary abnormality. Electronically signed by: Surjit Ojeda M.D. 11/24/2017 7:20 AM Dictated Date/Time: 11/24/2017 7:19 AM
== END 2017-11-24 00:30 | disposition home or self-care (01) ==
LOC: EDBD 23:30 → C.EDC 23:31
DX: S00.03XA Contusion of scalp, initial encounter (principal); W19.XXXA Unspecified fall, initial encounter; Y92.010 Kitchen of single-family (private) house as the place of occurrence of the external cause; F03.90 Unspecified dementia, unspecified severity, without behavioral disturbance, psychotic disturbance, mood disturbance, and anxiety; E11.9 Type 2 diabetes mellitus without complications; Z79.899 Other long term (current) drug therapy; Z88.2 Allergy status to sulfonamides

== ENCOUNTER 2019-04-11 14:36 | Inpatient (IN) ==
[2019-04-11] MEDS ORDERED: ONDANSETRON INJ 2 MG/ML 2 ML VIAL IV STA (15:02)
[2019-04-11] MEDS ORDERED: LORazepam 2 MG/4 ML VIAL IV STA ×2 (15:02→17:57)
[2019-04-11] MEDS ORDERED: MoRPHine SULFATE 4 MG/ML 1 ML CARP\\VIAL IV PRN (15:02)
[2019-04-11] MEDS ORDERED: SODIUM CHLORIDE 0.9% 500 ML IV SCH (15:15)
--- NOTE | 2019-04-11 15:49 | XRay Report ---
XR chest 1V portable CLINICAL HISTORY: 78 years-old Female presenting with epigastric pain. TECHNIQUE: Portable upright AP view of the chest was obtained. COMPARISON: 04/10/2019. FINDINGS: Cardiac silhouette mildly enlarged. Mild pulmonary vascular prominence. No focal opacity. No large ef fusion or pneumothorax. Scoliotic curvature and degenerative changes of the spine. Upper abdomen norm al. IMPRESSION: 1. Cardiomegaly with mild volume overload. No advanced congestive change or dot pulmonary edema. Electronically signed by: Bennett Serra M.D. 04/11/2019 3:48 PM
[2019-04-11 16:06] LABS: Basophils # (auto) 0.01 K/uL (0-0.2); Basophils % (auto) 0.1 %; Eosinophils # (auto) 0.36 K/uL (0-0.5); Eosinophils % (auto) 5.3 %; Hemoglobin 12.8 g/dL (12.0-16.0); Immature Granulocytes # (auto) 0.02 K/uL (0.00-0.02); Immature Granulocytes % (auto) 0.3 %; Lymphocytes # (auto) 1.37 K/uL (1.2-3.4); Lymphocytes % (auto) 20.3 %; Mean Corpuscular Hemoglobin 31.5 pg (25-34); Mean Corpuscular Hgb Conc 32.8 g/dL (32-36); Mean Corpuscular Volume 96.1 fL (80-100); Mean Platelet Volume 10.4 fL (7.4-10.4); Monocytes # (auto) 0.46 K/uL (0.11-0.59); Monocytes % (auto) 6.8 %; Neutrophils # (auto) 4.52 K/uL (1.4-6.5); Neutrophils % (auto) 67.2 %; Platelet Count 185 K/uL (130-400); RDW Coefficient of Variation 12.5 % (11.5-14.5); Red Blood Count 4.06 M/uL (4.2-5.4); White Blood Count 6.74 K/uL (4.8-10.8)
[2019-04-11 16:37] LABS: Alanine Aminotransferase 14 U/L (12-78); Albumin Level 3.4 gm/dl (3.4-5.0); Aspartate Aminotransferase 13 U/L (15-37); Blood Urea Nitrogen 10 mg/dl (7-18); Carbon Dioxide 26 mmol/L (21-32); Chloride 108 mmol/L (98-107); Creatinine Clr Calc Pharmacy 35.4 ml/min; Est GFR (African American) 56.7; Est GFR (Non-African American) 48.9; Glucose 234 mg/dl (70-99); Lipase 71 U/L (73-393); Potassium 3.8 mmol/L (3.5-5.1); Sodium 143 mmol/L (136-145)
[2019-04-11 16:41] LABS: Albumin Globulin Ratio 0.9 (0.9-2); Alkaline Phosphatase 94 U/L (45-117); Bilirubin,Total 0.3 mg/dl (0.2-1); Globulin 3.6 gm/dl (2.5-4.0); Troponin I < 0.015 ng/ml (0-0.045)
[2019-04-11] MEDS ORDERED: SODIUM CHLORIDE 0.9% 1000ML 500 ML IV ONE (16:45)
[2019-04-11] MEDS ORDERED: IOVERSOL 100ml IV PRN (17:13)
--- NOTE | 2019-04-11 17:28 | CT Scan Report ---
CT abd pelvis IV con only CLINICAL HISTORY: 78 years-old Female presenting with generalized abdominal pain. TECHNIQUE: Multidetector CT of the abdomen and pelvis was performed after the administration of intra venous contrast. IV contrast: 94 mL of Optiray 320. One or more dose lowering techniques were used co nsistent with the principles of ALARA (as low as reasonably achievable), including automatic exposure control, mA or kV adjustment to individual patient size, and/or use of iterative reconstruction. COMPARISON: 04/07/2019. CT DOSE (mGy.cm): The estimated cumulative dose is 739.52 mGy.cm. 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 Lung bases: Mild multichamber enlargement of the heart. Coronary artery and aortic valve calcificatio n. No pericardial or pleural effusion. Minimal dependent changes likely atelectasis. Liver: Normal morphology. No liver lesion. Patent hepatic vasculature. Biliary: No intrahepatic or extrahepatic biliary ductal dilatation. Normal gallbladder. Pancreas: Mild parenchymal atrophy. Spleen: Few subcentimeter hypoenhancing foci, possibly small lymphangiomas or hemangiomas, not as heidi arent on the prior exam. Adrenal glands: Normal. Kidneys and ureters: Normal. No hydronephrosis. Bladder: The configuration of the bladder suggests pelvic ligamentous laxity. Bladder otherwise aga l. Pelvic organs: Resolution of prior gas within the endometrial cavity. Ovaries grossly normal. Bowel: Rectum remains markedly distended with stool now also with fluid. Mild circumferential rectal wall thickening. No perirectal fat infiltration. Fluid is also noted in the more proximal colon. This may suggest a cathartic state. The appendix is not visualized. Small bowel is mildly diffusely diste nded and fluid-filled. No bowel obstruction. Stomach is also mildly distended with fluid as is the pr oximal duodenum. Peritoneal cavity: No free fluid or intraperitoneal gas. Lymph nodes: No enlarged lymph nodes in the abdomen or pelvis. Vasculature: Atherosclerosis of the normal caliber abdominal aorta. IVC patent. Abdominal wall: Abdominal wall laxity and diastases of the abdominis rectus with a wide neck ventral hernia containing unobstructed bowel. Musculoskeletal: Degenerative changes of the spine. Osteopenia. Degenerative changes of the sequela j oints. IMPRESSION: 1. Distended rectum with mild stercoral proctitis. 2. Fluid throughout the colon suggests a cathartic state. 3. Diffusely fluid-filled small bowel, which is mildly distended. No bowel obstruction. 4. Resolution of prior gas within the endometrial cavity. 5. Mild cardiomegaly. Electronically signed by: Bennett Serra M.D. 04/11/2019 5:27 PM
[2019-04-11] MEDS ORDERED: LORazepam 2 MG/4 ML VIAL ONE (17:57)
[2019-04-11 18:16] LABS: Appearance Urine Clear (Clear); Bacteria Urine Automated Negative (Negative); Bilirubin Urine Negative (Negative); Blood Urine Negative (Negative); Color Urine Yellow; Epithelial Cell Urine Auto 0-5 /lpf (0-5); Glucose Urine UA Trace (Negative); Ketones Urine Negative (Negative); Leukocyte Esterase Urine 1+ (Negative); Nitrite Urine Negative (Negative); Protein Urine Negative (Negative); RBC Urine Automated 0-4 /hpf (0-4); Specific Gravity Urine 1.029 (1.000-1.030); Urobilinogen Urine Negative (Negative)
--- NOTE | 2019-04-11 19:29 | History & Physical Report ---
Date of Service April 11, 2019 Assessment & Plan (1) Diffuse abdominal pain: Admit to PCU on telemetry on observation Vital signs every 4 hours Placed NG tube and started intermittent low suction We will start the GoLYTELY 250 cc daily until patient has bowel movement Gastroenterology consult placed this treatment fails Discussed with Dr. Onofre appreciate his recommendations We will start ceftriaxone for urinary tract infection mild proctitis. If no improvement you can escalate to Cipro and Flagyl for proctitis. DVT prophylaxis teds and SCDs We will check a fecal occult blood Full code per daughter's wishes Present on Admission?: Yes (2) Constipation: As above Present on Admission?: Yes (3) Failure of outpatient treatment: As above (4) Alzheimer disease: Unfortunately patient has severe Alzheimer dementia and she is not able to communicate no she is able to take care of herself. Continue home medicine donepezil 5 mg p.o. every morning memantine 5 mg p.o. twice daily, lorazepam p.o. 4 to 8 mg/ml p.o. every 8 hours as needed, Mirtazepine 15 mg p.o. nightly switch to lorazepam 1 mg IV every 4 hours hours, oxycodone acetaminophen 10 to 325 mg tablet p.o. every 4 hours as needed switched to morphine 1 mg IV every 3 hours Present on Admission?: Yes (5) Diabetes: Accu-Cheks before meals and at bedtime glycemic control per pharmacy if needed since patient does not take any medication at home. Hemoglobin A1c pending Present on Admission?: Yes (6) UTI (urinary tract infection): Started ceftriaxone Urine culture pending Present on Admission?: Yes (7) Proctitis: Mild proctitis will treat with IV ceftriaxone. If no improvement in oxalate to Cipro and Flagyl. Present on Admission?: Yes (8) Hypothyroidism: Continue levothyroxine 125 MCG's p.o. daily. TSH pending Present on Admission?: Yes History of Present Illness Chief Complaint: Abdominal pain and severe constipation Primary Care Provider: Asim Davis MD Patient is a 78 years old female with ventral hernia status post hernia repair, with severe Alzheimer dementia, is brought to the emergency room by her daughters and caregivers because she is severely constipated and her abdomen is distended. Patient was here on April 07 as well for the same issue and April 10. Daughters are saying that patient did not have bowel movement for prolonged period of time they are not aware how long because patient is severely demented unable to communicate. Patient was given MiraLAX in the ER today which did not help her to have bowel movement and she started to sob after it. Patient calm down after she received 2 doses of lorazepam, Zofran, 2 L of normal saline, and morphine sulfate 4 mg IV. Daughter who is caregiver denies that patient has fever, chills, chest pain, shortness of breath, hematuria dysuria melena hemoptysis. Labs are reviewed: Which shows sodium of 143, potassium 3.8, chloride 108, anion gap 9, BUN 10, creatinine 1.09, lactate 2.6, AST 13, ALT 14, troponin 0 0.015, lipase 71. WBC 6.74, hemoglobin 12.8, hematocrit 39 platelets 185, urine positive for 1+ leukocyte esterase and 10-[address] abdomen and pelvis shows distended rectum with mild sterile coral proctitis. Fluid throughout the colon suggest a cathartic stage. Diffusely fluid-filled small bowel which is mildly distended. No bowel obstruction. Resolution of prior gas or within the endometrial cavity. Mild cardiomegaly. The case was discussed with Dr. Onofre and he recommended to put NG tube for decompression and Dr. [place] Case fireworks assembly supervisor to see the patient in the morning. Will use 250cc of GoLYTELY for day or 2 until patient has bowel movement once a day via NG tube. Plan to put patient on intermittent low suction. And reassess her tomorrow. Admit patient to PCU telemetry for observation for severe constipation and urinary tract infection. Due to severe dementia it is very difficult to obtain review of system with patient. Allergies Allergy/AdvReac Type Severity Reaction Status Date / Time Sulfa (Sulfonamide Allergy Mild "SULFA Verified 04/11/19 15:30 Antibiotics) DRUGS": RASH Home Medications Home Medications Medication Instructions Recorded Confirmed Type levothyroxine 125 mcg capsule 125 mcg PO DAILY #90 cap 12/14/18 04/11/19 Rx memantine 5 mg tablet 5 mg PO BID #180 tab 12/14/18 04/11/19 Rx lorazepam 2 mg/mL oral concentrate 4 - 8 mg PO Q8H PRN ml 01/04/19 04/11/19 History oxycodone-acetaminophen 10 mg-325 1 tab PO Q4H PRN #60 tab 03/21/19 04/11/19 Rx mg tablet docusate sodium 100 mg PO DAILY 04/10/19 04/11/19 History donepezil 5 mg PO QAM 04/10/19 04/11/19 History mirtazapine 15 mg PO HS 04/10/19 04/11/19 History Past Med/Surg History Medical History Alzheimer disease (Acute) Ventral hernia (Chronic) Diabetes (Chronic) Dementia (Chronic) UTI (urinary tract infection) (Chronic) Surgical History S/P hernia repair (Resolved) Family History Other No significant family history Social History Preferred Language: Tajik marital status: / Current Living Situation: Family current occupational status: retired Feels Safe at Home: Yes Smoking Status: Never smoker Review of Systems Review of Systems: All systems reviewed & are unremarkable except as noted in HPI & below Physical Exam Constitutional: WD/WN, vitals as above + ill appearing, + morbidly obese, + behavioral limitations, + in distress and + combative Due to severe dementia it is very difficult to obtain review of sips them with the patient Eyes: PERRL, conjunctivae normal, anicteric sclerae ENMT: external ear and nose normal, oropharynx normal Neck: trachea midline, no thyromegaly Respiratory: normal respiratory effort, lungs clear to auscultation Cardiovascular: RRR, no murmur, no edema Gastrointestinal (Abdomen): Inspection/Auscultation: + abdomen distended and + hyperactive bowel sounds Percussion/Palpation: abdomen soft, + hernia (Ventral hernia status post repair with with bulge due to large amount of stool) and + abdominal mass Musculoskeletal: no cyanosis or clubbing, extremities motor strength 5/5 Skin: no rashes, warm and dry Neurologic: patellar DTR's 2+ bilat, sensation intact Psychiatric: A+Ox3, euthymic affect Judgement: + impaired judgement Patient has severe Alzheimer dementia, impaired speech, poor judgment, limited insight, Lymphatic: no cervical or axillary lymphadenopathy Results & Data Vital Signs (Past 12 Hours) Vital Signs Pulse Pulse Resp BP Pulse Ox 04/11/19 19:03 64 20 98 04/11/19 17:31 75 20 96 04/11/19 14:51 75 20 159/86 H 95 Code Status & VTE Plan Code Status Full code VTE Prophylaxis Plan VTE Prophylaxis will be ordered: No PG Care Time/CCT Total # of Minutes Spent Total Time Spent with Patient: Total time spent is greater than 50% in coordination of care (as documented) at patient's floor/unit and/or counseling patient: (1) Constipation Constipation type: unspecified constipation type Qualified Code(s): K59.00 - Constipation, unspecified (2) Alzheimer disease Alzheimer's disease onset: unspecified onset Dementia behavioral disturbance: with behavioral disturbance Qualified Code(s): G30.9 - Alzheimer's disease, unspecified; F02.81 - Dementia in other diseases classified elsewhere with behavioral disturbance
[2019-04-11] MEDS ORDERED: SODIUM CHLORIDE 0.9% 1000ML 1,000 ML IV SCH (20:07)
[2019-04-11] MEDS ORDERED: OXYCODONE/ACETAMINOPHEN 10-325 TAB PO PRN (20:07)
[2019-04-11] MEDS ORDERED: MAGNESIUM HYDROXIDE SUSP 30 ML UDC PO PRN (20:07)
[2019-04-11] MEDS ORDERED: ZOLPIDEM TARTRATE 5 MG TAB PO PRN (20:07)
[2019-04-11] MEDS ORDERED: LORazepam 1 MG TAB PO PRN (20:07)
[2019-04-11] MEDS ORDERED: ONDANSETRON INJ 2 MG/ML 2 ML VIAL IV PRN (20:07)
--- NOTE | 2019-04-11 20:18 | XRay Report ---
XR chest 1V portable CLINICAL HISTORY: to confirm NG tube in cardia COMPARISON STUDY: Chest radiograph April 11, 2019 at 3:09 PM. FINDINGS: The tip of the nasogastric tube is demonstrated on the KUB which was performed concurrently . Cardiomegaly is noted. There is pulmonary vascular congestion with suspected mild pulmonary edema. There is hazy right basilar opacity. There is no pneumothorax. IMPRESSION: Pulmonary vascular congestion with suspected mild pulmonary edema. Electronically signed by: Wood Bennett M.D. 04/11/2019 8:16 PM
--- NOTE | 2019-04-11 20:19 | XRay Report ---
KUB CLINICAL HISTORY: ng tube placement COMPARISON STUDY: CT of the abdomen and pelvis April 11, 2019 at 5:09 PM. FINDINGS: There is contrast within the bladder from recent contrast-enhanced CT. Tip of the nasogastr ic tube projects over the distal stomach. IMPRESSION: Tip of nasogastric tube projects over the distal stomach. Electronically signed by: Wood Bennett M.D. 04/11/2019 8:18 PM
[2019-04-11] MEDS: MoRPHine SULFATE 2 MG/ML CARP IV PRN (20:36)
[2019-04-11] MEDS ORDERED: HALOPERIDOL LACTATE 5 MG/ML 1 ML VIAL IV STA (20:52)
[2019-04-11] MEDS ORDERED: POLYETHYLENE (MIRALAX) 17 GM PACK PO SCH (21:00)
[2019-04-11] MEDS: MEMANTINE HCL 5 MG TAB PO SCH (21:09)
[2019-04-11] MEDS ORDERED: Nursing to Pharmacy Communication ONE (21:13)
[2019-04-11] MEDS ORDERED: HALOPERIDOL LACTATE 5 MG/ML 1 ML VIAL IM STA (21:21)
--- NOTE | 2019-04-11 22:19 | Emergency Department Note ---
Entered by Camille Santana acting as a scribe for History of Present Illness General Chief complaint: Abdominal Pain Time Seen by Provider: 04/11/19 14:52 Source: family Limitations: other (dementia) History of Present Illness Onset (ago): hour(s) (today) Location: abdomen Severity: similar to prior episodes Pain Consistency: + other (persistent) Maximum Pain Intensity: 6 Quality: + other (constipation) Relieved By: + none Associated symptoms: no fever/chills Treatments prior to arrival: other (Ativan, oxycodone) The patient is a 78 year old female who presents to the Emergency Room with complaints of persistent constipation that began yesterday. Her family, at bedside, states that she was in the ER yesterday for constipation, and she did have a BM then. The daughter states that she was given a Sierra-LAX prep to take at home, but she has not had a BM today. Her daughter, at bedside, notes that this is similar to her previous episodes of constipation, but she appears to be in more pain with this episode. The daughter states that she has been having episodes of constipation for over a week. She complains that the patient appears to have abdominal pain. The patient's daughter denies any nausea/vomiting. She notes that the patient takes narcotics for pain. The daughter states that she had 5 mg of oxycodone and Ativan [employer]PER[employer]. She notes that she called the patient's PCP and was referred here for the patient's symptoms. The daughter notes that she lives alone, but she has 24 hours of care. She notes that patient has a his tory of dementia. HPI limited secondary to dementia. Home Medications Home Medications Medication Instructions Recorded Confirmed Type levothyroxine 125 mcg capsule 125 mcg PO DAILY #90 cap 12/14/18 04/11/19 Rx memantine 5 mg tablet 5 mg PO BID #180 tab 12/14/18 04/11/19 Rx lorazepam 2 mg/mL oral concentrate 4 - 8 mg PO Q8H PRN ml 01/04/19 04/11/19 History oxycodone-acetaminophen 10 mg-325 1 tab PO Q4H PRN #60 tab 03/21/19 04/11/19 Rx mg tablet docusate sodium 100 mg PO DAILY 04/10/19 04/11/19 History donepezil 5 mg PO QAM 04/10/19 04/11/19 History mirtazapine 15 mg PO HS 04/10/19 04/11/19 History Allergies Allergy/AdvReac Type Severity Reaction Status Date / Time Sulfa (Sulfonamide Allergy Mild "SULFA Verified 04/11/19 15:30 Antibiotics) DRUGS": RASH Past Med/Surg History Medical History Alzheimer disease (Acute) Ventral hernia (Chronic) Diabetes (Chronic) Dementia (Chronic) UTI (urinary tract infection) (Chronic) Surgical History S/P hernia repair (Resolved) Family History Other No significant family history Social History Preferred Language: Setswana Communication Ability: Unable Automotive Brake Adjuster Required: No Beliefs That Will Affect Care: None marital status: / Current Living Situation: Alone Current Living Situation Comment: wtih 24hr caregivers current occupational status: retired Feels Safe at Home: Yes Smoking Status: Former smoker Hx Alcohol Use: No Hx Substance Use: No Review of Systems See HPI for pertinent positives & negatives. Other ( ROS limited secondary to dementia.) Physical Exam Vital Signs Vital Signs - 24 hr 04/11/19 14:51 04/11/19 17:31 04/11/19 19:03 Temperature Source Oral Sepsis Recent Fever Within 48 Hours No Sepsis New/Unexplained Change in Mental Status No Sepsis Action Taken by Nursing No Action Required Pulse Rate 75 Pulse Rate [Femoral] 75 64 Respiratory Rate 20 20 20 Respiratory Effort / Characteristics Non-Labored Spontaneous Non-Labored Spontaneous Non-Labored Spontaneous Respiratory Depth Normal Normal Normal Respiratory Pattern Regular Regular Blood Pressure 159/86 H Blood Pressure Mean 110 Blood Pressure Position Lying Pulse Oximetry 95 96 98 Oxygen Delivery Method Room Air Room Air Room Air GENERAL: Moderate distress, constant moaning, anxious HEENT: No acute trauma, normocephalic atraumatic, mucous membranes moist, no na estee congestion, no scleral icterus. NECK: No stridor, no adenopathy, no meningismus, trachea is midline. LUNGS: Clear to auscultation bilaterally, no wheeze, no rhonchi, breath sounds equal. HEART: Without murmurs gallops or rubs, regular rate and rhythm. ABDOMEN: There is an abdominal wall hernia superior to the umbilicus. The abdomen is soft. The abdomen appears diffusely tender and somewhat distended. EXTREMITIES: No cyanosis or edema, full range of motion of all the joints without pain or difficulty, no signs for acute trauma. NEUROLOGIC: Awake, constant moaning, moves all extremities. Dementia noted. SKIN: No rash, no jaundice, no diaphoresis. Course 1456: The patient was evaluated in room A12B. A complete history and physical exam was performed. I reviewed the patients EMR. Per her EMR, she was here on April 07 and April [id number] complaining of constipation. Yesterday, she had an X-Ray showing significant constipation. She was discharged with Sierra-LAX bowel prep. On the , she had a CT of the abdomen and pelvis that showed constipation and some perirectal inflammation from the constipation. 1800: I updated the patient's family on her results. 1804: I spoke with Dr. Freeman, [facility] hospitalist, about the patient's case. Dr. Freeman will further evaluate the patient. Consultations Consultation #1: I spoke with Dr. Freeman, [facility] hospitalist, about the patient's case. Dr. Freeman will further evaluate the patient. Time: 18:05 Administered Medications Sodium Chloride (Nss 1000ml) 1,000 mls @ 80 mls/hr IV .[id number] [facility] Stop: 04/12/19 08:36 Last Admin: 04/11/19 20:37 Dose: 80 mls/hr Documented by: [id number] Memantine (Namenda) 5 mg PO BID INGE Stop: 05/11/19 20:59 Last Admin: 04/11/19 21:09 Dose: Not Given Documented by: [id number] Morphine Sulfate (Morphine Sulfate) 2 mg IV Q4 PRN PRN Reason: Pain Stop: 04/25/19 20:06 Last Admin: 04/11/19 20:36 Dose: 2 mg Documented by: [id number] Discontinued Medications Lorazepam (Ativan) 2 mg in 4 mls @ 4 mls/min IV NOW STA Stop: 04/11/19 15:03 Last Admin: 04/11/19 15:52 Dose: 4 mls/min Documented by: [id number] Sodium Chloride (Nss) 500 mls @ 999 mls/hr IV .Q31M INGE Stop: 04/11/19 15:45 Last Infusion: 04/11/19 16:33 Dose: 0 mls/hr Documented by: [id number] Admin: 04/11/19 15:52 Dose: 999 mls/hr Documented by: [id number] Sodium Chloride (Nss 1000ml) 500 mls @ 999 mls/hr IV .Q31M ONE Stop: 04/11/19 17:15 Last Infusion: 04/11/19 18:06 Dose: 0 mls/hr Documented by: [id number] Admin: 04/11/19 17:33 Dose: 999 mls/hr Documented by: [id number] Lorazepam (Ativan) 2 mg in 4 mls @ 4 mls/min IV NOW STA Stop: 04/11/19 17:58 Last Admin: 04/11/19 18:02 Dose: 4 mls/min Documented by: [id number] Ioversol (Optiray 320 100ml) 94 ml IV ONCE PRN PRN Reason: Interaction Checking Stop: 04/15/19 17:12 Last Admin: 04/11/19 17:14 Dose: 94 ml Documented by: [id number] Lorazepam (Ativan) Confirm Administered Dose 2 mg .ROUTE .STK-MED ONE Stop: 04/11/19 17:58 Last Admin: 04/11/19 18:02 Dose: Not Given Documented by: [id number] Morphine Sulfate (Morphine Sulfate) 4 mg IV Q20M PRN PRN Reason: Pain Stop: 04/25/19 15:01 Last Admin: 04/11/19 16:33 Dose: 4 mg Documented by: [id number] Ondansetron HCl (Zofran) 4 mg IV NOW STA Stop: 04/11/19 15:03 Last Admin: 04/11/19 15:52 Dose: 4 mg Documented by: [id number] Polyethylene Glycol (Miralax Powder Packet) 17 gm PO 2100 INGE Stop: 04/11/19 21:01 Last Admin: 04/11/19 21:09 Dose: Not Given Documented by: [id number] Medical Decision Making Differential Diagnosis The differential diagnosis includes: bowel obstruction, constipation, bowel perforation, incarcerated hernia, UTI, urinary obstruction, renal colic, pancre atitis, cardiac ischemic, and bowel ischemia. Medical Records Attestation: I reviewed the patient's medical records. Home Medications Current Medication List: was personally reviewed by me Laboratory Data Attestation: I reviewed the patient's lab results. Result diagrams: 04/11/19 15:49 04/11/19 15:49 Lab Results 04/11/19 04/11/19 04/11/19 Range/Units 15:49 15:49 15:49 WBC 6.74 (4.8-10.8) K/uL RBC 4.06 L (4.2-5.4) M/uL Hgb 12.8 (12.0-16.0) g/dL Hct 39.0 (37-47) % MCV 96.1 (80-100) fL MCH 31.5 (25-34) pg MCHC 32.8 (32-36) g/dL RDW Std Deviation 44.0 (36.4-46.3) fL RDW Coeff of Kristina 12.5 (11.5-14.5) % Plt Count 185 (130-400) K/uL MPV 10.4 (7.4-10.4) fL Immature Gran % (Auto) 0.3 % Neut % (Auto) 67.2 % Lymph % (Auto) 20.3 % [place] % (Auto) 6.8 % Eos % (Auto) 5.3 % Baso % (Auto) 0.1 % Immature Gran # (Auto) 0.02 (0.00-0.02) K/uL Neut # (Auto) 4.52 (1.4-6.5) K/uL Lymph # (Auto) 1.37 (1.2-3.4) K/uL [place] # (Auto) 0.46 (0.11-0.59) K/uL Eos # (Auto) 0.36 (0-0.5) K/uL Baso # (Auto) 0.01 (0-0.2) K/uL Sodium 143 (136-145) mmol/L Potassium 3.8 (3.5-5.1) mmol/L Chloride 108 H (98-107) mmol/L Carbon Dioxide 26 (21-32) mmol/L Anion Gap 9.0 (3-11) BUN 10 (7-18) mg/dl Creatinine 1.09 (0.6-1.2) mg/dl Est Cr Clr Drug Dosing 35.4 ml/min Est GFR ( Amer) 56.7 Est GFR (Non-Af Amer) 48.9 BUN/Creatinine Ratio 9.0 L (10-20) Glucose 234 H (70-99) mg/dl POC Lactic Acid Phillip (0.90-1.70) mmol/L Lactate 2.6 H* (0.4-2.0) mmol/L Calcium 9.0 (8.5-10.1) mg/dl Total Bilirubin 0.3 (0.2-1) mg/dl AST 13 L (15-37) U/L ALT 14 (12-78) U/L Alkaline Phosphatase 94 (45-117) U/L Troponin I < 0.015 (0-0.045) ng/ml Total Protein 7.0 (6.4-8.2) gm/dl Albumin 3.4 (3.4-5.0) gm/dl Globulin 3.6 (2.5-4.0) gm/dl Albumin/Globulin Ratio 0.9 (0.9-2) Lipase 71 L (73-393) U/L Urine Color Urine Appearance (Clear) Urine pH (4.5-7.5) Ur Specific [place] (1.000-1.030) Urine Protein (Negative) Urine Glucose (UA) (Negative) Urine Ketones (Negative) Urine Blood (Negative) Urine Nitrite (Negative) Urine Bilirubin (Negative) Urine Urobilinogen (Negative) Ur Leukocyte Esterase (Negative) Urine WBC (Auto) (0-5) /hpf Urine RBC (Auto) (0-4) /hpf U Hyaline Cast (Auto) (0-5) /lpf U Epithel Cells (Auto) (0-5) /lpf Urine Bacteria (Auto) (Negative) 04/11/19 04/11/19 Range/Units 16:01 17:55 WBC (4.8-10.8) K/uL RBC (4.2-5.4) M/uL Hgb (12.0-16.0) g/dL Hct (37-47) % MCV (80-100) fL MCH (25-34) pg MCHC (32-36) g/dL RDW Std Deviation (36.4-46.3) fL RDW Coeff of Kristina (11.5-14.5) % Plt Count (130-400) K/uL MPV (7.4-10.4) fL Immature Gran % (Auto) % Neut % (Auto) % Lymph % (Auto) % [place] % (Auto) % Eos % (Auto) % Baso % (Auto) % Immature Gran # (Auto) (0.00-0.02) K/uL Neut # (Auto) (1.4-6.5) K/uL Lymph # (Auto) (1.2-3.4) K/uL [place] # (Auto) (0.11-0.59) K/uL Eos # (Auto) (0-0.5) K/uL Baso # (Auto) (0-0.2) K/uL Sodium (136-145) mmol/L Potassium (3.5-5.1) mmol/L Chloride (98-107) mmol/L Carbon Dioxide (21-32) mmol/L Anion Gap (3-11) BUN (7-18) mg/dl Creatinine (0.6-1.2) mg/dl Est Cr Clr Drug Dosing ml/min Est GFR ( Amer) Est GFR (Non-Af Amer) BUN/Creatinine Ratio (10-20) Glucose (70-99) mg/dl POC Lactic Acid Phlilip 2.65 H (0.90-1.70) mmol/L Lactate (0.4-2.0) mmol/L Calcium (8.5-10.1) mg/dl Total Bilirubin (0.2-1) mg/dl AST (15-37) U/L ALT (12-78) U/L Alkaline Phosphatase (45-117) U/L Troponin I (0-0.045) ng/ml Total Protein (6.4-8.2) gm/dl Albumin (3.4-5.0) gm/dl Globulin (2.5-4.0) gm/dl Albumin/Globulin Ratio (0.9-2) Lipase (73-393) U/L Urine Color Yellow Urine Appearance Clear (Clear) Urine pH 6.0 (4.5-7.5) Ur Specific [place] 1.029 (1.000-1.030) Urine Protein Negative (Negative) Urine Glucose (UA) Trace H (Negative) Urine Ketones Negative (Negative) Urine Blood Negative (Negative) Urine Nitrite Negative (Negative) Urine Bilirubin Negative (Negative) Urine Urobilinogen Negative (Negative) Ur Leukocyte Esterase 1+ H (Negative) Urine WBC (Auto) 10-30 H (0-5) /hpf Urine RBC (Auto) 0-4 (0-4) /hpf U Hyaline Cast (Auto) 1-5 (0-5) /lpf U Epithel Cells (Auto) 0-5 (0-5) /lpf Urine Bacteria (Auto) Negative (Negative) Imaging Data Radiologist's Impression: Radiology results as stated below per my review and the radiologist's interpretation: XR chest 1V portable CLINICAL HISTORY: 78 years-old Female presenting with epigastric pain. TECHNIQUE: Portable upright AP view of the chest was obtained. COMPARISON: 04/10/2019. FINDINGS: Cardiac silhouette mildly enlarged. Mild pulmonary vascular prominence. No focal opacity. No large effusion or pneumothorax. Scoliotic curvature and de generative changes of the spine. Upper abdomen normal. IMPRESSION: 1. Cardiomegaly with mild volume overload. No advanced congestive change or dot pulmonary edema. Electronically signed by: Bennett Serra M.D. 04/11/2019 3:[address] abd pelvis IV con only CLINICAL HISTORY: 78 years-old Female presenting with generalized abdominal pain. TECHNIQUE: Multidetector CT of the abdomen and pelvis was performed after the administration of intravenous contrast. IV contrast: 94 mL of Optiray 320. One or more dose lowering techniques were used consistent with the principles of ALARA (as low as reasonably achievable), including automatic exposure control, mA or kV adjustment to individual patient size, and/or use of iterative reconstruction. COMPARISON: 04/07/2019. CT DOSE (mGy.cm): The estimated cumulative dose is 739.52 mGy.cm. FINDINGS: Director Internal Communications topogram: Unremarkable. Lung bases: Mild multichamber enlargement of the heart. Coronary artery and aortic valve calcification. No pericardial or pleural effusion. Minimal dependent changes likely atelectasis. Liver: Normal morphology. No liver lesion. Patent hepatic vasculature. Biliary: No intrahepatic or extrahepatic biliary ductal dilatation. Normal gallbladder. Pancreas: Mild parenchymal atrophy. Spleen: Few subcentimeter hypoenhancing foci, possibly small lymphangiomas or hemangiomas, not as apparent on the prior exam. Adrenal glands: Normal. Kidneys and ureters: Normal. No hydronephrosis. Bladder: The configuration of the bladder suggests pelvic ligamentous laxity. Bladder otherwise normal. Pelvic organs: Resolution of prior gas within the endometrial cavity. Ovaries grossly normal. Bowel: Rectum remains markedly distended with stool now also with fluid. Mild circumferential rectal wall thickening. No perirectal fat infiltration. Fluid is also noted in the more proximal colon. This may suggest a cathartic state. The appendix is not visualized. Small bowel is mildly diffusely distended and fluid- filled. No bowel obstruction. Stomach is also mildly distended with fluid as is the proximal duodenum. Peritoneal cavity: No free fluid or intraperitoneal gas. Lymph nodes: No enlarged lymph nodes in the abdomen or pelvis. Vasculature: Atherosclerosis of the normal caliber abdominal aorta. IVC patent. Abdominal wall: Abdominal wall laxity and diastases of the abdominis rectus with a wide neck ventral hernia containing unobstructed bowel. Musculoskeletal: Degenerative changes of the spine. Osteopenia. Degenerative changes of the sequela joints. IMPRESSION: 1. Distended rectum with mild stercoral proctitis. 2. Fluid throughout the colon suggests a cathartic state. 3. Diffusely fluid-filled small bowel, which is mildly distended. No bowel obstruction. 4. Resolution of prior gas within the endometrial cavity. 5. Mild cardiomegaly. Electronically signed by: Bennett Serra M.D. 04/11/2019 5:27 PM ECG Data Attestation: I personally reviewed and interpreted this ECG as follows: Indication: abdominal pain Rate (beats per minute): 61 Rhythm: normal sinus Findings: + other (QTC of 422); no ST elevation and no acute ischemic change Blood Pressure Blood Pressure Findings: Elevated blood pressure Blood Pressure Disposition: further management by hospitalist [facility] Narrative There is no leukocytosis or concerning anemia. No significant electrolyte abnormality or kidney failure. No worrisome liver enzyme elevation. No evidence for pancreatitis. Urinalysis did not show evidence for infection. Lactic acid level was somewhat elevated, this could be consistent with bowel ischemia and/or dehydration. Chest film did not show pneumonia or free air. Abdominal and pelvis CT shows constipation and some fluid-filled bowel loops. There was no bowel obstruction or free air. Proctitis from the constipation was felt present. She did have a ventral abdominal wall hernia but there was no obstructed bowel within the hernia. EKG showed a sinus rhythm, no acute ischemia. Cardiac enzyme testing x1 was not consistent with acute cardiac injury. On exam, the patient was in significant distress, she was moaning and seemed uncomfortable. This was her third visit to the ED in just a few days. The patient did have a liquidy bowel movement while here in the ED. This did not improve her pain. Patient received IV saline for hydration. She received IV morphine for pain. She was given IV Ativan 2 mg, a second dose of 2 mg was administered. This medication regimen did seem to improve her symptoms. The patient presents with persistent abdominal pain. She has failed outpatient treatment for this constipation and proctitis. I am concerned there could be some bowel ischemia present as the lactic acid level was slightly elevated, this will need to be followed. GI may need consulted. I spoke to the patient's family, I talked with the campaign manager. The on-call hospitalist was consulted. Impression & Plan Diffuse abdominal pain, Constipation, Dementia, Proctitis, Failure of outpatient treatment Discharge Plan Visit Data *Final* Discharge Date/Time: 04/11/19 20:00 Chief Complaint: Abdominal Pain ED Provider: Surjit Gallegos Discharge Problem: Diffuse abdominal pain, Constipation, Dementia, Proctitis, Failure of outpatient treatment Patient Disposition: Admitted As Inpatient Discharge Instructions Interventions: ED Discharge Assessment Last Done: 04/11/19 20:00 Discharge Problem: Constipation Qualifiers: Constipation type: unspecified constipation type Qualified Code(s): K59.00 - Constipation, unspecified Dementia Qualifiers: Dementia type: unspecified type Dementia behavioral disturbance: without behavioral disturbance Qualified Code(s): F03.90 - Unspecified dementia without behavioral disturbance The sofiya's documentation has been prepared under my direction and personally reviewed by me in its entirety. I confirm that the note above accurately reflects all work, treatment, procedures, and medical decision making performed by me.
[2019-04-12] MEDS: MIRTAZAPINE SOLTAB 15 MG PO SCH ×2 (00:26→19:48)
[2019-04-12] MEDS: LORazepam 2 MG/4 ML VIAL IV PRN ×4 (02:09→18:33)
[2019-04-12] MEDS: LEVOTHYROXINE SODIUM 125 MCG TABLET PO SCH (05:32)
[2019-04-12] MEDS: MoRPHine SULFATE 2 MG/ML CARP IV PRN ×2 (06:19→14:50)
[2019-04-12] MEDS: LAVAGE SOLN 240ML BOTTLE PO SCH (07:33)
[2019-04-12] MEDS: DONEPEZIL HCL 5 MG TAB PO SCH (07:34)
[2019-04-12] MEDS: MEMANTINE HCL 5 MG TAB PO SCH ×2 (07:34→20:54)
[2019-04-12] MEDS: POLYETHYLENE (MIRALAX) 17 GM PACK PO SCH (07:34)
--- NOTE | 2019-04-12 10:40 | Gastrointestinal Consultation ---
Date of Consultation April 12, 2019 Assessment & Plan (1) Constipation: 1. If no returning abdominal distention or firmness, can d/c NG. 2. Recommend a daily bowel regimen with MiraLAX 17 g 1-2 times daily to maintain regular bowel movements. 3. Continue supportive care. Supervising Physician Co-Signing Physician Notes Agree with GRANT Jackson as above Patient's family at bedside and confirm she had a BM this AM Abd: Soft, NT, ND, +BS Continue current therapy and supportive care History of Present Illness Reason for Consultation: Severe constipation Requesting Physician: Dr. Freeman Attending Physician: Jean Paul Liu DO History of Present Illness Patient is a 78 year-old female with a history of Alzheimer's dementia brought to the ER by her daughter on three separate occasions for acute constipation. The patient is unable to provide any history as she is nonverbal. The daughter states that after the initial ER evaluation, she was instructed to give the patient a bottle of magnesium citrate which caused some liquid output but patient was "still not acting herself". She states the patient's PCP advised the to take the patient back to the ER. After this evaluation, she had given the patient MiraLAX/Gatorade prep which did not evacuate her bowels but caused the patient to become very distended and visibly in distress. She then brought the patient back to the hospital yesterday. Dr. Onofre was contacted and a NG tube was inserted for decompression as well as administration of GoLytely. In doing so, this morning the patient's abdomen is less distended per the daughter. Nursing reports numerous BMs overnight and two this morning. No overt GIB or other complaints. Allergies Allergy/AdvReac Type Severity Reaction Status Date / Time Sulfa (Sulfonamide Allergy Mild "SULFA Verified 04/11/19 15:30 Antibiotics) DRUGS": RASH Home Medications Home Medications Medication Instructions Recorded Confirmed Type levothyroxine 125 mcg capsule 125 mcg PO DAILY #90 cap 12/14/18 04/11/19 Rx memantine 5 mg tablet 5 mg PO BID #180 tab 12/14/18 04/11/19 Rx lorazepam 2 mg/mL oral concentrate 4 - 8 mg PO Q8H PRN ml 01/04/19 04/11/19 History oxycodone-acetaminophen 10 mg-325 1 tab PO Q4H PRN #60 tab 03/21/19 04/11/19 Rx mg tablet docusate sodium 100 mg PO DAILY 04/10/19 04/11/19 History donepezil 5 mg PO QAM 04/10/19 04/11/19 History mirtazapine 15 mg PO HS 04/10/19 04/11/19 History Patient History Medical History Alzheimer disease (Acute) Ventral hernia (Chronic) Diabetes (Chronic) Dementia (Chronic) UTI (urinary tract infection) (Chronic) Surgical History S/P hernia repair (Resolved) Family History Other No significant family history Social History Preferred Language: Kinyarwanda Communication Ability: Unable Building Certifier Required: No Beliefs That Will Affect Care: None marital status: / Current Living Situation: Alone Current Living Situation Comment: wt 24hr caregivers current occupational status: retired Feels Safe at Home: Yes Smoking Status: Former smoker Hx Alcohol Use: No Hx Substance Use: No Review of Systems Review of Systems: Unobtainable due to cognitive status Physical Exam Constitutional: WD/WN, vitals as above not in distress ENMT: NG in place with bilious drainage noted. Respiratory: Auscultation: lungs clear to auscultation bilaterally Cardiovascular: Rate/Rhythm: regular rate and regular rhythm Gastrointestinal (Abdomen): Inspection/Auscultation: + hyperactive bowel sounds Percussion/Palpation: abdomen soft; no guarding Musculoskeletal: no pedal edema Psychiatric: A+Ox3, euthymic affect Results & Data Vital Signs (Past 12 Hours) Vital Signs Temp Pulse Pulse Resp BP BP Pulse Ox 04/12/19 08:00 58 L 04/12/19 07:39 37.1 C 50 L 18 161/91 H 96 04/12/19 02:38 61 04/12/19 02:11 71 21 159/81 H 95 04/11/19 22:48 36.6 C 64 16 123/70 92 PG Care Time/CCT Total # of Minutes Spent Total Time Spent with Patient: Total time spent is greater than 50% in coordination of care (as documented) at patient's floor/unit and/or counseling patient: (1) Constipation Constipation type: unspecified constipation type Qualified Code(s): K59.00 - Constipation, unspecified
[2019-04-12] MEDS ORDERED: DEXTROSE 50% 50 ML SYRINGE IV ONE ×2 (11:51→11:58)
[2019-04-12] MEDS: INSULIN ASPART 100 UNITS/ML 3 ML PEN SC SCH ×3 (12:01→21:04)
--- NOTE | 2019-04-12 17:44 | Family Medicine Progress Note ---
Date of Service April 12, 2019 Assessment & Plan (1) Constipation: 78 yo F with severe Alzheimer dementia presented with constipation found to have mild proctitis. Constipation - CT results: - mild stercoral proctitis, fluid throughout colon, mildly distended small bowel, no bowel obstruction - GI consulted appreciate recs - initially NG tube placed and 250 mg Golytely - if no returning distention and firmness d/c NG - Miralax 17 mg 1-2 times a day Mild Proctitis - bowel measures [address], with noted mild proctitis - afebrile with normal vital signs Bradycardia - HR 50 overnight - discussed with daughter (patients POA) the workup involved in low heart rate and she would not like to pursue this at this time concern for UTI - UA with LCE and WBC - U. culture: no growth final - will continue to assess for symptoms Alzheimer - continue home meds Donepezil, Memantine, Lorazepam, Mirtazepine Hypothyroid - continue Levothyroxine 125 mcg Diabetes - not on home meds - glucose 234 today, started ISS goal 120-180 and correction 30-15 DVT: Lovenox Diet: NPO Code: sister is POA, DNR (2) Proctitis: (3) Hypothyroidism: (4) Diffuse abdominal pain: (5) Dementia: Supervising Physician Co-Signing Physician Notes I personally examined the patient and verified all faustin points of history and exam, discussed case, and agree with decision making with Dr Reynoso No meaningful HPI or review of systems obtainable. Extensive discussion with family. Answered all questions the best my ability and to their satisfaction. Vitals noted, in general she is lying in bed no distress. Abdomen is soft mildly distended no focal tenderness, palpable fascial defect noted but no hernia/tenderness/firmness noted. Severe constipationwith stercoral colitis -continue Rocephin, continue bowel regimen. Fortunately not truly obstructed, emergency measures such as disimpaction not needed, continue to follow closely, abdomen nonacute. Once she has bowels moving, would agree with GI that and escalated MiraLAX regimen would likely be beneficial. Bradycardia when asleepfamily denies any notable signs or symptoms of bradycardia such as appearing weak lightheaded dizzyfurther as we discussed through the unlikely probability of a true conduction problem, they note that at this point in her life a pacer would not be appropriate with her quality of life, therefore no need for further monitoring. Stable for transfer to medical Subjective Ms. Diamond has severe Alzheimer dementia and was nonverbal. Daughter Serenity discussed with me that yesterday her mother had watery bowel movements. She also mentioned that her mother had a hernia but that this has been present for a while and no issue with it previously. Review of Systems Review of Systems: Unobtainable due to cognitive status Physical Exam Constitutional: + thin, + altered mental status and + lethargic Respiratory: normal respiratory effort, lungs clear to auscultation Cardiovascular: RRR, no murmur, no edema Gastrointestinal (Abdomen): normal bowel sounds, soft, nontender, no hepatosplenomegaly Skin: no rashes, warm and dry Psychiatric: Orientation: + not alert Speech: + mute Results & Data Vital Signs (Past 12 Hours) Vital Signs Temp Pulse Pulse Resp BP BP Pulse Ox 04/12/19 15:38 36.6 C 61 20 116/64 92 04/12/19 08:00 58 L 04/12/19 07:39 37.1 C 50 L 18 161/91 H 96 PG Care Time/CCT Total # of Minutes Spent Total Time Spent with Patient: Total time spent is greater than 50% in coordination of care (as documented) at patient's floor/unit and/or counseling patient: Resident Activity Tracking Resident Involvement: Resident Care Provided Care Provided: Adult Hospital Medicine (1) Dementia Dementia behavioral disturbance: without behavioral disturbance Dementia type: unspecified type Qualified Code(s): F03.90 - Unspecified dementia without behavioral disturbance (2) Constipation Constipation type: unspecified constipation type Qualified Code(s): K59.00 - Constipation, unspecified
[2019-04-12] MEDS ORDERED: LAVAGE SOLN 240ML BOTTLE PO ONE ×3 (20:00→20:15)
[2019-04-13] MEDS: LEVOTHYROXINE SODIUM 125 MCG TABLET PO SCH (05:25)
[2019-04-13] MEDS: ENOXAPARIN INJ 30 MG/0.3 ML SYR SQ SCH (07:43)
[2019-04-13] MEDS: LAVAGE SOLN 240ML BOTTLE PO SCH (07:44)
[2019-04-13] MEDS: POLYETHYLENE (MIRALAX) 17 GM PACK PO SCH (08:05)
[2019-04-13] MEDS: INSULIN ASPART 100 UNITS/ML 3 ML PEN SC SCH ×4 (08:58→20:55)
[2019-04-13] MEDS: MEMANTINE HCL 5 MG TAB PO SCH ×2 (09:08→20:52)
[2019-04-13] MEDS: DONEPEZIL HCL 5 MG TAB PO SCH (09:08)
[2019-04-13] MEDS ORDERED: ENOXAPARIN INJ 30 MG/0.3 ML SYR SQ SCH (09:30)
--- NOTE | 2019-04-13 13:00 | Gastroenterology Progress Note ---
Date of Service April 13, 2019 Assessment & Plan (1) Constipation: 1. KUB. If no significant findings, recommend NG d/c. 2. Continue MiraLAX and conservative measures. Supervising Physician Co-Signing Physician Notes I personally evaluated the patient and agree with the findings as documented by GRANT Jackson Exam: abd: soft, moderate tenderness to palpation diffusely, nd Subjective Unable to obtain history from patient. Per daughter, patient has continued to have bms. She is concerned about the status of the constipation. Review of Systems Review of Systems: Unobtainable due to cognitive status Physical Exam Constitutional: WD/WN, vitals as above Gastrointestinal (Abdomen): Inspection/Auscultation: normal bowel sounds Percussion/Palpation: abdomen soft Psychiatric: Orientation: alert PG Care Time/CCT Total # of Minutes Spent Total Time Spent with Patient: Total time spent is greater than 50% in coordination of care (as documented) at patient's floor/unit and/or counseling patient: (1) Constipation Constipation type: unspecified constipation type Qualified Code(s): K59.00 - Constipation, unspecified
[2019-04-13] MEDS: LORazepam 2 MG/4 ML VIAL IV PRN (14:16)
[2019-04-13] MEDS ORDERED: SOD PHOSPHATE/SOD BIPHOSPHATE ENEMA 132 ML BTL PR STA (14:47)
--- NOTE | 2019-04-13 14:50 | XRay Report ---
XR KUB/Abdomen 1 view CLINICAL HISTORY: 78 years-old Female presenting with abdominal distention. TECHNIQUE: Single supine view of the abdomen was obtained. COMPARISON: 04/11/2019. FINDINGS: Nasogastric tube position in the gastric antrum with side hole located within the gastric lumen. Nono bstructive bowel gas pattern. No gross pneumoperitoneum align for supine technique. Allowing for bowel gas and stool, no calcifications to suggest nephrolithiasis. Scoliosis and degenerative changes of the spine. Lung bases clear. IMPRESSION: 1. Appropriately positioned nasogastric tube. 2. No bowel obstruction. Electronically signed by: Bennett Serra M.D. 04/13/2019 2:48 PM
[2019-04-13] MEDS: MoRPHine SULFATE 2 MG/ML CARP IV PRN ×2 (15:52→17:44)
--- NOTE | 2019-04-13 17:42 | Family Medicine Progress Note ---
Date of Service April 13, 2019 Assessment & Plan (1) Constipation: 78 yo F with severe Alzheimer dementia presented with constipation found to have mild proctitis. Constipation - CT results: - mild stercoral proctitis, fluid throughout colon, mildly distended small bowel, no bowel obstruction - GI consulted appreciate recs - discontinued NG tube - Miralax 17 mg 1-2 times a day - fleets enema this afternoon, will follow up to see if there is movement of stool ball - will consider disimpaction if we are not successful with enemas Mild Proctitis - bowel measures [address], with noted mild proctitis - afebrile with normal vital signs, benign abdominal exam Bradycardia - HR 50 overnight - discussed with daughter (patients POA) the workup involved in low heart rate and she would not like to pursue this at this time concern for UTI - UA with LCE and WBC - U. culture: no growth final - will continue to assess for symptoms Alzheimer - continue home meds Donepezil, Memantine, Lorazepam, Mirtazepine Hypothyroid - continue Levothyroxine 125 mcg Diabetes - not on home meds - glucose 234 today, started ISS goal 120-180 and correction 30-15 DVT: Lovenox Diet: NPO Code: sister is POA, DNR (2) Proctitis: (3) Hypothyroidism: (4) Diffuse abdominal pain: (5) Dementia: Supervising Physician Co-Signing Physician Notes I personally examined the patient and verified all faustin points of history and exam, discussed case, and agree with decision making with Dr Reynoso. No meaningful HPI or review of systems obtainable from patient. However she is more alert and moaning at times. Daughter notes she does this at home a lot to. She has only passed liquid stools thus far. Vitals noted, in general she is in no distress. HEENT NG tube without any local breakdown. Abdomen is soft nondistended nontender no guarding rebound or rigidity. Severe constipationnot improving with current management. Give trial to enema, given that the bulk of the fecal load on CT appeared to be fairly low. Stop suction, if no abdominal distention or nausea or vomiting can DC NG tube and start liquid diet. Continue stool softeners. Subjective Lying peacefully this morning, not verbalizing in the morning. In the afternoon Ms. Diamond was able to make good eye contact and said, "hey". daughters mentioned that she has had bowel movements but they have been liquid. Review of Systems Review of Systems: Unobtainable due to cognitive status Constitutional: + fever Physical Exam Constitutional: + thin, + altered mental status and + lethargic Respiratory: normal respiratory effort, lungs clear to auscultation Cardiovascular: RRR, no murmur, no edema Gastrointestinal (Abdomen): normal bowel sounds, soft, nontender, no hepatosplenomegaly Skin: no rashes, warm and dry Psychiatric: Orientation: + not alert PG Care Time/CCT Total # of Minutes Spent Total Time Spent with Patient: Total time spent is greater than 50% in coordination of care (as documented) at patient's floor/unit and/or counseling patient: Resident Activity Tracking Resident Involvement: Resident Care Provided Care Provided: Adult Hospital Medicine (1) Dementia Dementia behavioral disturbance: without behavioral disturbance Dementia type: unspecified type Qualified Code(s): F03.90 - Unspecified dementia without behavioral disturbance (2) Constipation Constipation type: unspecified constipation type Qualified Code(s): K59.00 - Constipation, unspecified
[2019-04-13] MEDS: MIRTAZAPINE SOLTAB 15 MG PO SCH (20:52)
[2019-04-14] MEDS ORDERED: INSULIN ASPART 100 UNITS/ML 3 ML PEN SC SCH
[2019-04-14 06:03] LABS: Hematocrit (blood only) 40.7 % (37-47); Hemoglobin 13.7 g/dL (12.0-16.0); Mean Corpuscular Hemoglobin 31.6 pg (25-34); Mean Corpuscular Hgb Conc 33.7 g/dL (32-36); Mean Corpuscular Volume 93.8 fL (80-100); Mean Platelet Volume 9.9 fL (7.4-10.4); Platelet Count 171 K/uL (130-400); RDW Coefficient of Variation 12.3 % (11.5-14.5); RDW Standard Deviation 41.9 fL (36.4-46.3); Red Blood Count 4.34 M/uL (4.2-5.4); White Blood Count 7.32 K/uL (4.8-10.8)
[2019-04-14] MEDS: LEVOTHYROXINE SODIUM 125 MCG TABLET PO SCH (06:30)
[2019-04-14 06:35] LABS: Calcium 8.9 mg/dl (8.5-10.1); Creatinine Clr Calc Pharmacy 49.9 ml/min; Est GFR (Non-African American) 73.3; Potassium 3.6 mmol/L (3.5-5.1)
[2019-04-14] MEDS: DONEPEZIL HCL 5 MG TAB PO SCH (07:32)
[2019-04-14] MEDS: MEMANTINE HCL 5 MG TAB PO SCH ×2 (07:32→20:34)
[2019-04-14] MEDS: ENOXAPARIN INJ 30 MG/0.3 ML SYR SQ SCH (07:33)
[2019-04-14] MEDS: POLYETHYLENE (MIRALAX) 17 GM PACK PO SCH (07:33)
[2019-04-14] MEDS: LAVAGE SOLN 240ML BOTTLE PO SCH (07:42)
[2019-04-14] MEDS: INSULIN ASPART 100 UNITS/ML 3 ML PEN SC SCH ×4 (08:52→20:44)
--- NOTE | 2019-04-14 09:48 | Gastroenterology Progress Note ---
Date of Service April 14, 2019 Assessment & Plan (1) Constipation: 1. Start Anusol-HC suppositories 25 mg [place] BID. 2. Agree with soap suds enema today. 3. Continue MiraLAX 17 g BID. 4. If no improvement, consider manual disimpaction. Supervising Physician Co-Signing Physician Notes Agree with GRANT Jackson Abd: Soft, Tender LLQ, ND, +BS Continue current therapy and supportive care Subjective Still without meaningful stool output. Discussed with Dr. Liu. Plans for soap suds enema today. Continues BID MiraLAX. Tolerating liquid diet. No vomiting per daughters. Review of Systems Review of Systems: Unobtainable due to cognitive status Physical Exam Constitutional: WD/WN, vitals as above Eyes: EOM intact bilaterally Gastrointestinal (Abdomen): Inspection/Auscultation: normal bowel sounds Percussion/Palpation: abdomen soft Results & Data Vital Signs (Past 12 Hours) Vital Signs Temp Pulse Resp BP Pulse Ox 04/14/19 07:04 37.1 C 64 18 110/67 93 04/13/19 23:59 36.8 C 66 18 129/74 93 PG Care Time/CCT Total # of Minutes Spent Total Time Spent with Patient: Total time spent is greater than 50% in coordination of care (as documented) at patient's floor/unit and/or counseling patient: (1) Constipation Constipation type: unspecified constipation type Qualified Code(s): K59.00 - Constipation, unspecified
[2019-04-14] MEDS: HYDROCORTISONE ACETATE 25 MG SUPP PR SCH ×2 (10:29→22:18)
[2019-04-14] MEDS: ACETAMINOPHEN 325 MG TAB PO PRN (13:01)
[2019-04-14] MEDS: LORazepam 2 MG/4 ML VIAL IV PRN ×2 (15:11→20:59)
[2019-04-14] MEDS: MoRPHine SULFATE 2 MG/ML CARP IV PRN (16:24)
--- NOTE | 2019-04-14 17:12 | Family Medicine Progress Note ---
Date of Service April 14, 2019 Assessment & Plan (1) Constipation: 78 yo F with severe Alzheimer dementia presented with constipation found to have mild proctitis. Constipation - CT results: - mild stercoral proctitis, fluid throughout colon, mildly distended small bowel, no bowel obstruction - GI consulted appreciate recs - discontinued NG tube - Miralax 17 mg 1-2 times a day - continue to try enemas, attempted disimpaction with no stool felt in the rectum. - ordered KUB Mild Proctitis - stool measures [address], with noted mild proctitis - afebrile with normal vital signs, benign abdominal exam Bradycardia - HR 50 overnight - discussed with daughter (patients POA) the workup involved in low heart rate and she would not like to pursue this at this time concern for UTI - UA with LCE and WBC - U. culture: Gamma strep no enterococcus <20,000 CFU - will continue to assess for symptoms Alzheimer - continue home meds Donepezil, Memantine, Lorazepam, and Mirtazepine Hypothyroid - continue Levothyroxine 125 mcg Diabetes - not on home meds DVT: Lovenox Diet: NPO Code: sister is POA, DNR (2) Proctitis: (3) Hypothyroidism: (4) Diffuse abdominal pain: (5) Dementia: Supervising Physician Co-Signing Physician Notes I personally examined the patient and verified all faustin points of history and exam, discussed case, and agree with decision making with Dr Reynoso. No meaningful HPI or review of systems obtainable from patient. Still only liquid stools. Vitals noted, in general she is in no distress. HEENT NG tube without any local breakdown. Abdomen is soft nondistended nontender no guarding rebound or rigi dity. Severe constipationwith stercoral colitisunclear if the liquid stools are that there is still hard stool creating back-up, or if the treatments between the GoLYTELY and enemas have just simply liquefied everything. Dr. Reynoso attempted disimpaction, but there was no stool to be felt. We will likely need to image her abdomen to see what the status is of her severe constipation, if it is clear that it is resolved then we can downgrade her bowel regimen to more of a maintenance regimen, if there is still significant stool there, given that it is not reachable we will have to continue to try with enemas, and if it is not clear there is a small chance of actually needing to re-CT to check on the status of things. Subjective not verbal with me due to dementia. Daughters in the room and want to know what we are doing to treat their mom. We went over the step hicks approach to resolving her constipation. We discussed the Miralax that we tried the multiple enemas, and that the last option would be to attempt manual disimpaction and if this failed we would have to get another KUB to evaluate if the constipation had indeed resolved. Review of Systems Review of Systems: Unobtainable due to cognitive status Physical Exam Constitutional: + altered mental status and + lethargic Respiratory: normal respiratory effort, lungs clear to auscultation Cardiovascular: RRR, no murmur, no edema Gastrointestinal (Abdomen): normal bowel sounds, soft, nontender, no hepatospl enomegaly Skin: no rashes, warm and dry Psychiatric: Orientation: + not alert Speech: + mute Results & Data Vital Signs (Past 12 Hours) Vital Signs Temp Pulse Resp BP Pulse Ox 04/14/19 07:04 37.1 C 64 18 110/67 93 PG Care Time/CCT Total # of Minutes Spent Total Time Spent with Patient: Total time spent is greater than 50% in coordination of care (as documented) at patient's floor/unit and/or counseling patient: Resident Activity Tracking Resident Involvement: Resident Care Provided Care Provided: Adult Hospital Medicine (1) Dementia Dementia behavioral disturbance: without behavioral disturbance Dementia type: unspecified type Qualified Code(s): F03.90 - Unspecified dementia without behavioral disturbance (2) Constipation Constipation type: unspecified constipation type Qualified Code(s): K59.00 - Constipation, unspecified
--- NOTE | 2019-04-14 19:52 | XRay Report ---
KUB HISTORY: constipation COMPARISON: KUB 04/13/2019. FINDINGS: Mildly dilated gas-filled loops of large and small bowel are seen throughout the abdomen. T here is gas within the mildly distended stomach and rectum. Therefore, this is consistent with an ile us. No renal calculi. No ureteral calculi. No pneumoperitoneum or pneumatosis. IMPRESSION: Mildly dilated gas-filled loops of large and small bowel seen throughout the abdomen consistent with ileus. Electronically signed by: Alexandr Hollingsworth M.D. 04/14/2019 7:51 PM
[2019-04-14] MEDS: MIRTAZAPINE SOLTAB 15 MG PO SCH (20:17)
[2019-04-15 05:05] LABS: Hematocrit (blood only) 39.3 % (37-47); Hemoglobin 13.2 g/dL (12.0-16.0); Mean Corpuscular Hemoglobin 31.1 pg (25-34); Mean Corpuscular Hgb Conc 33.6 g/dL (32-36); Mean Corpuscular Volume 92.5 fL (80-100); Mean Platelet Volume 10.5 fL (7.4-10.4); Platelet Count 178 K/uL (130-400); RDW Coefficient of Variation 12.2 % (11.5-14.5); RDW Standard Deviation 41.5 fL (36.4-46.3); Red Blood Count 4.25 M/uL (4.2-5.4); White Blood Count 7.34 K/uL (4.8-10.8)
[2019-04-15 05:44] LABS: BUN Creatinine Ratio 12.7 (10-20); Calcium 8.7 mg/dl (8.5-10.1); Creatinine Clr Calc Pharmacy 53.7 ml/min; Est GFR (African American) 93.6; Est GFR (Non-African American) 80.8; Potassium 3.2 mmol/L (3.5-5.1)
[2019-04-15] MEDS: POTASSIUM CHLORIDE / WTR 10 MEQ/100 ML PLCT IV SCH ×2 (07:58→09:09)
[2019-04-15] MEDS: DONEPEZIL HCL 5 MG TAB PO SCH (08:00)
[2019-04-15] MEDS: MEMANTINE HCL 5 MG TAB PO SCH ×2 (08:00→22:18)
[2019-04-15] MEDS: ENOXAPARIN INJ 30 MG/0.3 ML SYR SQ SCH (08:00)
[2019-04-15] MEDS: LEVOTHYROXINE SODIUM 125 MCG TABLET PO SCH (08:00)
[2019-04-15] MEDS: LAVAGE SOLN 240ML BOTTLE PO SCH (08:00)
[2019-04-15] MEDS: HYDROCORTISONE ACETATE 25 MG SUPP PR SCH (08:01)
[2019-04-15] MEDS: POLYETHYLENE (MIRALAX) 17 GM PACK PO SCH (08:20)
[2019-04-15] MEDS: INSULIN ASPART 100 UNITS/ML 3 ML PEN SC SCH (09:06)
[2019-04-15] MEDS: cefTRIAXone SODIUM 1,000 MG in DEXTROSE 5% 50 ML IV SCH (10:19)
[2019-04-15] MEDS: LORazepam 2 MG/4 ML VIAL IV PRN (10:34)
--- NOTE | 2019-04-15 14:03 | Family Medicine Progress Note ---
Date of Service April 15, 2019 Assessment & Plan (1) Constipation: 78 yo F with severe Alzheimer dementia presented with constipation found to have mild proctitis. Constipation (resolved) - initial CT results: - mild stercoral proctitis, fluid throughout colon, mildly distended small bowel, no bowel obstruction - GI consulted appreciate recs - discontinued NG tube - Miralax 17 mg 1-2 times a day, currently held due to having frequent liquid diarrhea - KUB showed mild ileus, held morphine and repleted Potassium - CT ordered and shows: liquid stool in rectum - down titrating bowel meds to have consistent soft bowel movements 2-3 times a day Mild Proctitis - stool initially measures [address], with noted mild proctitis - afebrile with normal vital signs, benign abdominal exam Bradycardia - HR 50 overnight - discussed with daughter (patients POA) the workup involved in low heart rate and she would not like to pursue this at this time concern for UTI - UA with LCE and WBC - U. culture: Gamma strep no enterococcus <20,000 CFU - started on ceftriaxone - will continue to assess for symptoms Alzheimer - continue home meds Donepezil, Memantine, Lorazepam, and Mirtazepine Hypothyroid - continue Levothyroxine 125 mcg Diabetes - not on home meds Hypokalemia - concerning in the setting of KUB with mild ileus - repleted potassium this AM - continue to monitor electrolytes w/ AM labs DVT: Lovenox Diet: NPO Code: sister is POA, DNR (2) Proctitis: (3) Hypothyroidism: (4) Diffuse abdominal pain: (5) Dementia: Supervising Physician Co-Signing Physician Notes I personally examined the patient and verified all faustin points of history and exam, discussed case, and agree with decision making with Dr Reynoso. No meaningful HPI or review of systems obtainable from patient. Still only liquid stools. Family distraught. Patient moaning. IV pole beeping. Daughter noting "I feel like I am going to lose my mind" Extensive discussions of current situation and progress. Discussed that while we did explain overflow diarrhea, which is commonly the case, the fact that she has only had diarrhea and has shown this degree of improvement with a benign abdominal exam and radiographic appearance of clearing of the stool, it seems that more than likely her bowel prep and enemas simply liquefied to the hard stool that was in there. Family quite distraught and noting "I do not believe it" in spite of showing the x-rays [id number] in the room. Extensive discussions on delirium as well. Vitals noted, in general she is in no distress, she is moaning out randomly. HEENT normocephalic atraumatic mucous membranes are moist. Abdomen is soft nondistended nontender no guarding rebound or rigidity. Severe constipationwith stercoral colitisabdominal exam and KUB fairly reassuring to me. Family so distraught and almost insisting on CT scan, so given the shades of complexity of the situation, and the outside possibility of other causes of diarrheal illness, as well as for their peace of mind given that eventually they will have to take care of her at home again, CT orderedlessening rectal distention and liquid stool noted. Trial of full diet, aspiration precautions Delirium superimposed on dementiamore than likely simply from having been in the hospital for a while. Tried to explain this to family. Continue reassurance, supportive care. DVT prophylaxisLovenox Subjective Not verbal with me due to dementia. Daughters in the room and wanted to know what we are doing to treat their mom. We went over the step hicks approach to resolving her constipation. We discussed the KUB results which showed mild ileus. We discussed the possibility of doing a CT today to further evaluate if the constipation had resolved. Review of Systems Review of Systems: Unobtainable due to cognitive status Physical Exam Constitutional: + altered mental status and + lethargic Respiratory: normal respiratory effort, lungs clear to auscultation Cardiovascular: RRR, no murmur, no edema Gastrointestinal (Abdomen): normal bowel sounds, soft, nontender, no hepatosplenomegaly Skin: no rashes, warm and dry Psychiatric: Orientation: + not alert Speech: + mute Results & Data Vital Signs (Past 12 Hours) Vital Signs Temp Pulse Resp BP Pulse Ox 04/15/19 07:13 37.9 C H 61 18 130/60 93 PG Care Time/CCT Total # of Minutes Spent Total Time Spent with Patient: Total time spent is greater than 50% in coordination of care (as documented) at patient's floor/unit and/or counseling patient: Resident Activity Tracking Resident Involvement: Resident Care Provided Care Provided: Adult Hospital Medicine (1) Dementia Dementia behavioral disturbance: without behavioral disturbance Dementia type: unspecified type Qualified Code(s): F03.90 - Unspecified dementia without behavioral disturbance (2) Constipation Constipation type: unspecified constipation type Qualified Code(s): K59.00 - Constipation, unspecified
--- NOTE | 2019-04-15 15:22 | CT Scan Report ---
CT SCAN OF THE ABDOMEN AND PELVIS WITHOUT CONTRAST CLINICAL HISTORY: Diarrhea, abdominal discomfort. History of severe constipation. COMPARISON STUDY: 04/11/2019 TECHNIQUE: CT scan of the abdomen and pelvis was performed from the lung bases to the proximal femurs . Images are reviewed in the axial, sagittal, and coronal planes. IV contrast was not administered fo r this examination. A dose lowering technique was utilized adhering to the principles of ALARA. CT DOSE: 784.12 mGycm FINDINGS: Lower chest: There are mild right basilar atelectatic changes. Liver: The unenhanced liver is normal in size, contour, and attenuation. There is no intrahepatic kevin iary ductal dilatation. Gallbladder: There is increased gallbladder density, likely secondary to vicarious excretion. Spleen: Normal in size and attenuation. Pancreas: Unremarkable. Adrenal glands: Unremarkable. Kidneys: No renal, ureteral, or bladder calculi are visualized. Bowel: There are no transition zones to indicate bowel obstruction. The appendix is not visualized. T here is fluid within the colon consistent with the history of a diarrheal state. There is decreased d istention of the rectum and decreased rectal wall thickening. Peritoneum: There is no intraperitoneal free air or abdominal ascites. There is rectus diastases with anterior abdominal wall laxity with a wide neck ventral hernia containing nonobstructed bowel loops Vasculature: The abdominal aorta is normal in course and caliber. Adenopathy: None. Pelvic viscera: There is a joint Fung catheter. Skeletal structures: There is a grade 1 spondylolisthesis of L3 on L4. No destructive lesions are vis ualized IMPRESSION: 1. No evidence of bowel obstruction. No evidence of free air 2. Fluid within the rectum consistent with the history of a diarrheal state 3. Diminished rectal distention. Persistent but decreased rectal wall thickening. Electronically signed by: Vijay Jc M.D. 04/15/2019 3:21 PM
[2019-04-15] MEDS: ACETAMINOPHEN 325 MG TAB PO PRN (15:38)
--- NOTE | 2019-04-15 18:16 | XRay Report ---
XR chest 1V portable CLINICAL HISTORY: Aspiration COMPARISON STUDY: 04/11/2019 FINDINGS: The cardiac and mediastinal contours are normal. There is no evidence of focal pulmonary co nsolidation. There is no evidence of failure. No pleural effusions are visualized.[ IMPRESSION: 1. Interval resolution of the previously described pulmonary vascular congestion. No active disease i n the chest. Electronically signed by: Vijay Jc M.D. 04/15/2019 6:15 PM
[2019-04-15] MEDS: ACETAMINOPHEN 1000 MG/100 ML IV IV PRN (21:30)
[2019-04-15] MEDS: metroNIDAZOLE 500 MG/100 ML BAG IV SCH (21:54)
[2019-04-15] MEDS: MIRTAZAPINE SOLTAB 15 MG PO SCH (22:18)
[2019-04-16] MEDS: metroNIDAZOLE 500 MG/100 ML BAG IV SCH ×3 (05:20→20:41)
[2019-04-16 05:46] LABS: Hematocrit (blood only) 39.3 % (37-47); Hemoglobin 13.2 g/dL (12.0-16.0); Mean Corpuscular Hemoglobin 31.2 pg (25-34); Mean Corpuscular Hgb Conc 33.6 g/dL (32-36); Mean Corpuscular Volume 92.9 fL (80-100); Mean Platelet Volume 10.4 fL (7.4-10.4); Platelet Count 184 K/uL (130-400); RDW Coefficient of Variation 12.1 % (11.5-14.5); RDW Standard Deviation 41.3 fL (36.4-46.3); Red Blood Count 4.23 M/uL (4.2-5.4); White Blood Count 9.43 K/uL (4.8-10.8)
[2019-04-16 06:15] LABS: BUN Creatinine Ratio 19.4 (10-20); Creatinine Clr Calc Pharmacy 51.5 ml/min; Est GFR (African American) 89.1; Est GFR (Non-African American) 76.9; Potassium 3.4 mmol/L (3.5-5.1)
[2019-04-16] MEDS: LEVOTHYROXINE SODIUM 125 MCG TABLET PO SCH (06:36)
[2019-04-16] MEDS: ACETAMINOPHEN 1000 MG/100 ML IV IV PRN (07:29)
[2019-04-16] MEDS: cefTRIAXone SODIUM 1,000 MG in DEXTROSE 5% 50 ML IV SCH (07:50)
[2019-04-16] MEDS: DONEPEZIL HCL 5 MG TAB PO SCH (07:51)
[2019-04-16] MEDS: ENOXAPARIN INJ 30 MG/0.3 ML SYR SQ SCH (07:52)
[2019-04-16] MEDS: MEMANTINE HCL 5 MG TAB PO SCH ×2 (07:53→20:56)
[2019-04-16] MEDS ORDERED: INFLUENZA ADMINISTRATION CHARGE ONE (09:00)
[2019-04-16] MEDS ORDERED: INFLUENZA VIRUS QUAD VACCINE 0.5 ML SYR IM ONE (09:00)
[2019-04-16] MEDS: SODIUM CHLORIDE 0.9% 1000ML 1,000 ML IV SCH ×2 (09:22→21:43)
[2019-04-16] MEDS: POTASSIUM CHLORIDE / WTR 10 MEQ/100 ML PLCT IV SCH ×2 (09:26→10:51)
[2019-04-16] MEDS: LORazepam 2 MG/4 ML VIAL IV PRN ×2 (14:09→18:23)
--- NOTE | 2019-04-16 14:48 | Family Medicine Progress Note ---
Date of Service April 16, 2019 Assessment & Plan (1) Constipation: 78 yo F with severe Alzheimer dementia presented with constipation found to have mild proctitis. Constipation (resolved) - initial CT results: - mild stercoral proctitis, fluid throughout colon, mildly distended small bowel, no bowel obstruction - GI consulted appreciate recs - discontinued NG tube - Miralax 17 mg 1-2 times a day, currently held due to having frequent liquid diarrhea - Titrate bowel meds to have consistent soft bowel movements 2-3 times a day - KUB showed mild ileus, held morphine and repleted Potassium - repeat CT ordered and showed: liquid stool in rectum, resolution of co nstipation Delirium likely multifactorial causes including abd. pain, medications, hospitalization - waxing and waning level of consciousness in the setting of severe dementia - encourage feeding while patient is more awake Concern for aspiration - fever overnight with worsening lung exam, saturation normal, no leukocytosis, normal HR - CXR: no acute findings - Flagyl added for concern of aspiration - speech eval.: regular diet - consider discontinuation of abx. on discharge Mild Proctitis - stool initially measures [address], with noted mild proctitis - afebrile with normal vital signs, benign abdominal exam - Ceftriaxone started, consider conversion to an oral agent and short course 3-5 days Bradycardia - HR 50 overnight - discussed with daughter (patients POA) the workup involved in low heart rate and she would not like to pursue this at this time concern for UTI - UA with LCE and WBC - U. culture: Gamma strep no enterococcus <20,000 CFU - will continue to assess for symptoms Alzheimer - continue home meds Donepezil, Memantine, Lorazepam, and Mirtazepine Hypothyroid - continue Levothyroxine 125 mcg Diabetes - not on home meds Hypokalemia - concerning in the setting of KUB with mild ileus - repleted potassium this AM - continue to monitor electrolytes w/ AM labs and replete as needed Disposition -Patient previously on hospice, but patient improved and did not qualify. -Given acute worsening of patients course, and after goals of care conversation we made the decision with the POA for patient to go home with hospice Wednesday or Wednesday. -Case management aware of need to arrange hospice for end stage dementia DVT: Lovenox Diet: NPO Code: sister is POA, DNR (2) Proctitis: (3) Hypothyroidism: (4) Diffuse abdominal pain: (5) Dementia: Supervising Physician Co-Signing Physician Notes I personally examined the patient and verified all faustin points of history and exam, discussed case, and agree with decision making with Dr Reynoso. No meaningful HPI or review of systems obtainable from patient. extensive discussion w daughters and son in law - goals of care outlined. quality of life clearly their most important goal. would like to keep her home, hospice may be helpful. discussed how current acute illness w constipation compounded by delirium worsened by aspiration event makes prognosticating nearly impossible -- that she could continue to decline but it's just as likely that she gets through all of this and ends up more or less back at her baseline with a slow dementia related decline. Vitals noted, in general she is in no distress, HEENT normocephalic atraumatic, skin shows no pallor or icterus Severe constipationwith stercoral colitisimproved. since stools entirely liquified, anticipate it will likely take several days to get to more formed - but then would want to be proactive with miralax to avoid rebound of constipation. showed bristol stool chart and recommended starting miralax once looser "mid range" stools. aspiration event - febrile but not hypoxic; treat w abx to suppress potential f or pneumonia, but fortunately was probably in waxing and waning of delirium that she simply aspirated at a bad moment - given reassuring speech eval. Delirium superimposed on dementiamore than likely simply from having been in the hospital for a while. plan will be home, which hopefully will help significantly DVT prophylaxisLovenox dispo - after extensive discussions, plan will be home w hospice as soon as can be arranged/as soon as family comfortable taking her (possibly 04/17) with miralax bowel regimen ("dosing today based on yesterday's stool" with assist from bristol chart) and short course of PO abx. time in ~415, time out ~455 >30mins face to face discussions Subjective Talked with daughters this morning and we went through what we have done up to this point with Ms. Diamond including the constipation that we initially treated with laxatives and enemas and ultimately resolved. Then overnight she was noted to have a fever and worsening lung exam and increased somnolence which prompted us to add Flagyl to cover for aspiration. The CXR is now clear and we had speech evaluate her. I planned a family meeting for 4PM and would like to discuss goals of care and if family would like me to look into reinitiating hospice care. Review of Systems Review of Systems: Unobtainable due to cognitive status Physical Exam Constitutional: + altered mental status and + lethargic Respiratory: normal respiratory effort, lungs clear to auscultation Cardiovascular: RRR, no murmur, no edema Gastrointestinal (Abdomen): normal bowel sounds, soft, nontender, no hepatosplenomegaly Skin: no rashes, warm and dry Psychiatric: Orientation: + not alert Speech: + mute Results & Data Vital Signs (Past 12 Hours) Vital Signs Temp Pulse Resp BP Pulse Ox 04/16/19 14:14 37.0 C 04/16/19 08:43 37.3 C 04/16/19 07:10 38.0 C H 65 18 139/69 97 PG Care Time/CCT Total # of Minutes Spent Total Time Spent with Patient: Total time spent is greater than 50% in coordination of care (as documented) at patient's floor/unit and/or counseling patient: Prolonged Care Time Prolonged Care Time: Yes Total Prolonged Care Time: 40 Resident Activity Tracking Resident Involvement: Resident Care Provided Care Provided: Adult Hospital Medicine Critical Care Time Prolonged Care Time Prolonged Care Time: Yes Total Prolonged Care Time: 40 40mins face to face with family (1) Dementia Dementia behavioral disturbance: without behavioral disturbance Dementia type: unspecified type Qualified Code(s): F03.90 - Unspecified dementia without behavioral disturbance (2) Constipation Constipation type: unspecified constipation type Qualified Code(s): K59.00 - Constipation, unspecified
[2019-04-16] MEDS: MIRTAZAPINE SOLTAB 15 MG PO SCH (20:56)
[2019-04-17] MEDS: metroNIDAZOLE 500 MG/100 ML BAG IV SCH ×2 (04:58→13:11)
[2019-04-17] MEDS: LORazepam 2 MG/4 ML VIAL IV PRN ×2 (05:15→13:06)
[2019-04-17] MEDS: LEVOTHYROXINE SODIUM 125 MCG TABLET PO SCH (06:06)
[2019-04-17 06:17] LABS: Hematocrit (blood only) 37.2 % (37-47); Hemoglobin 12.3 g/dL (12.0-16.0); Mean Corpuscular Hemoglobin 30.7 pg (25-34); Mean Corpuscular Hgb Conc 33.1 g/dL (32-36); Mean Corpuscular Volume 92.8 fL (80-100); Mean Platelet Volume 10.2 fL (7.4-10.4); Platelet Count 168 K/uL (130-400); RDW Coefficient of Variation 12.1 % (11.5-14.5); RDW Standard Deviation 41.3 fL (36.4-46.3); Red Blood Count 4.01 M/uL (4.2-5.4); White Blood Count 8.12 K/uL (4.8-10.8)
[2019-04-17 06:51] LABS: BUN Creatinine Ratio 23.3 (10-20); Calcium 8.6 mg/dl (8.5-10.1); Creatinine Clr Calc Pharmacy 64.4 ml/min; Est GFR (African American) 101.9; Est GFR (Non-African American) 87.9; Potassium 3.3 mmol/L (3.5-5.1)
[2019-04-17 07:25] VITALS: BP 126/70; PULSE 67; TEMP 99; O2SAT 96
--- NOTE | 2019-04-17 07:48 | Discharge Summary ---
Date of Service April 17, 2019 Admission HPI Per Admitting Provider Patient is a 78 years old female with ventral hernia status post hernia repair, with severe Alzheimer dementia, is brought to the emergency room by her daughters and caregivers because she is severely constipated and her abdomen is distended. Patient was here on April 07 as well for the same issue and April 10. Daughters are saying that patient did not have bowel movement for prolonged period of time they are not aware how long because patient is severely demented unable to communicate. Patient was given MiraLAX in the ER today which did not help her to have bowel movement and she started to sob after it. Patient calm down after she received 2 doses of lorazepam, Zofran, 2 L of normal saline, and morphine sulfate 4 mg IV. Daughter who is caregiver denies that patient has fever, chills, chest pain, shortness of breath, hematuria dysuria melena hemoptysis. Labs are reviewed: Which shows sodium of 143, potassium 3.8, chloride 108, anion gap 9, BUN 10, creatinine 1.09, lactate 2.6, AST 13, ALT 14, troponin 0 0.015, lipase 71. WBC 6.74, hemoglobin 12.8, hematocrit 39 platelets 185, urine positive for 1+ leukocyte esterase and 10-[address] abdomen and pelvis shows distended rectum with mild sterile coral proctitis. Fluid throughout the colon suggest a cathartic stage. Diffusely fluid-filled small bowel which is mildly distended. No bowel obstruction. Resolution of prior gas or within the endometrial cavity. Mild cardiomegaly. The case was discussed with Dr. Onofre and he recommended to put NG tube for decompression and Dr. Madrid Case mining teacher to see the patient in the morning. Will use 250cc of GoLYTELY for day or 2 until patient has bowel movement once a day via NG tube. Plan to put patient on intermittent low suction. And reassess her tomorrow. Admit patient to PCU telemetry for observation for severe constipation and urinary tract infection. Due to severe dementia it is very difficult to obtain review of system with patient. Admission Exam Per Admitting Provider Constitutional: WD/WN, vitals as above + ill appearing, + morbidly obese, + behavioral limitations, + in distress and + combative Due to severe dementia it is very difficult to obtain review of systems with the patient Eyes: PERRL, conjunctivae normal, anicteric sclerae ENMT: external ear and nose normal, oropharynx normal Neck: trachea midline, no thyromegaly Respiratory: normal respiratory effort, lungs clear to auscultation Cardiovascular: RRR, no murmur, no edema Gastrointestinal (Abdomen): Inspection/Auscultation: + abdomen distended and + hyperactive bowel sounds Percussion/Palpation: abdomen soft, + hernia (Ventral hernia status post repair with with bulge due to large amount of stool) and + abdominal mass Musculoskeletal: no cyanosis or clubbing, extremities motor strength 5/5 Skin: no rashes, warm and dry Neurologic: patellar DTR's 2+ bilat, sensation intact Psychiatric: A+Ox3, euthymic affect Judgement: + impaired judgement Patient has severe Alzheimer dementia, impaired speech, poor judgment, limited insight, Lymphatic: no cervical or axillary lymphadenopathy Principal Diagnosis Constipation Discharge Exam Constitutional: WD/WN, vitals as above + ill appearing, + morbidly obese, + behavioral limitations, + in distress, + repetitive vocalizations Eyes: PERRL, conjunctivae normal, anicteric sclerae ENMT: external ear and nose normal, oropharynx normal Respiratory: normal respiratory effort, lungs clear to auscultation in all lung nj. No wheezes, rales or crackles Cardiovascular: RRR, S1 and S2 appreciated. no murmur/rubs/gallops. no LE edema Gastrointestinal (Abdomen): Inspection/Auscultation: + abdomen bloating and + normoactive bowel sounds Percussion/Palpation: abdomen soft Skin: no rashes, warm and dry Genitourinary: Fung catheter in place draining lebron colored urine. no blood clots Psychiatric: A+Ox3 Judgement: + impaired judgement Patient has severe Alzheimer dementia, impaired speech, poor judgment, limited insight Discharge Data Allergies Allergy/AdvReac Type Severity Reaction Status Date / Time Sulfa (Sulfonamide Allergy Mild "SULFA Verified 04/11/19 15:30 Antibiotics) DRUGS": RASH Consultations 04/11/19 18:25 ED Decision to Admit Stat 04/11/19 20:07 Consult Gastroenterology Stat 04/14/19 06:10 Consult Case Management - Discharge Planning Routine 04/16/19 16:56 Consult Case Management - Discharge Planning Stat Ordered Studies 04/11/19 15:02 CT abd pelvis IV con only Stat 04/15/19 13:48 CT abd pelvis wo con Routine Hospital Course (1) Constipation: Ms. Diamond is a 78 yo F with severe Alzheimer dementia who was admitted to [facility] on 04/11/19 to 04/17/19 for abdominal pain found to be secondary to constipation. She was found to have mild proctitis on abdominal CT scan. She was discharged to home hospice (end stage dementia). Constipation On admission, abdominal CT revealed mild stercoral proctitis, fluid throughout colon, mildly distended small bowel, without bowel obstruction. An NG tube was initially placed with intermittent low suction. After NG was discontinued, patient's constipated was treated with Golytely bowel prep and Miralax 17 mg. This regimen was held when patient began having multiple liquid stools per day. Repeat CT farfan showed liquid stool in rectum and resolution of constipation. Ms. Diamond is on Percocet 5mg, PO, BID for bilateral osteoarthritis pain. It is possible that opioid use is contributory to her constipation. KUB showed mild ileus, which prompted Ms. Diamond's care team to hold her home opioid medication and replace her potassium. Her potassium level was slightly low at 3.3 on day of discharge. Outpatient items to do: We advised her daughters to give her one scheduled dose of percocet, 5mg, PO, daily for the knee pain and to titrate Miralax to have consistent soft bowel movements 2-3 times a day. Ok to increase percocet it she seems to be having knee pain despite her limited ambulatory status. Mild Proctitis Visualized on admission CT scan. Etiology is infectious (although she has had normal WBC, afebrile) vs. inflammatory (ie from significant constipation). Ms. Diamond was afebrile with normal vital signs and a benign abdominal exam throughout her hospital stay. She was treated with IV ceftriaxone, and will be sent home with a 3 day oral course of flagyl for potential infectious etiology of proctitis. Concern for UTI Ms. Diamond's UA was positive for Leuk esterase and WBC. Urine culture grew Gamma strep, no enterococcus, <20,000 CFU. Given her diminished ability to communicate, it is unclear as to whether Ms. Diamond was symptomatic. Ceftriaxone likely provided antimicrobial coverage. Concern for aspiration Ramer through her hospital stay Ms. Diamond developed a fever in the setting of a worsening lung exam. Her saturation remained normal, as did her HR and WBC count. Although CXR showed no acute findings, Flagyl was added for concern of aspiration. Subsequent speech evaluation cleared her for a regular diet and Flagyl was d/c at discharge. Outpatient items to do: Advised caregivers to feed during times of day when she is most awake. Delirium in the setting of Alzheimer's Dementia Ms. Diamond was found to have a waxing and waning level of consciousness in the setting of severe dementia. Her family members confirmed that her mental status was different than her baseline. Potential provoking etiologies include the significant abdominal pain that prompted her admission, medications she received during her stay, and her overall hospitalization. We anticipate improveme nt/resolution when she returns to a familiar setting (home). Outpatient items to do: reorientation measures. Patient has follow up visit with PCP scheduled for 04/20/19 - given that patient is being discharged to home hospice we recommended considering discontinuation of Namenda and donepezil. Bradycardia Ms. Diamond was found to be bradycardic with heart rates as low as 50 overnight. This was discussed with Ms. Diamond's POA who declined the further workup in light of her overall health goals. Hypokalemia Ms. Diamond developed hypokalemia during her hospital stay. This lab abnormality was concerning in the setting of KUB with mild ileus. Her potassium was repleted with IV and oral potassium chloride throughout her stay. Level 3.3 on day of discharge. (2) Proctitis: (3) Hypothyroidism: (4) Diffuse abdominal pain: (5) Dementia: Total Time Total Time Spent Total Time Spent (In Minutes): see attending attestation Discharge Plan Discharge Items Patient Disposition: Hospice - Home Reason For Visit: ABDOMINAL PAIN,SEVERE CONSTIPATION Discharge Diagnosis: Abdominal pain secondary to constipation and proctitis Condition on Discharge: Fair Activity: Resume your previous activity Non-emergency contact: Primary Care Provider Call non-emergency contact if: your pain is not controlled Follow-up/Referrals: Asim Davis III, MD [Primary Care Provider] - 04/20/19 2:20 pm (Please, follow up with Dr. Davis on April 20 at 2:20 pm. *If you need to change this appointment, call the office at [phone].) Diet: Regular Addtl Attending Provider Instructions: You were hospitalized at [facility] from 04/11/19 to 04/17/19 for abdominal pain. You were found to be constipated, which was treated. A CT scan of your abdomen also showed proctitis, or inflammation of the lining of the rectum and anus. You were treated with an antibiotic called "Rocephin" for this condition. You should continue to take an oral dose of the Rocephin for 3 days following discharge. While under our care, your heart rate was slow. However given your overall health status, your POA declined further investigation and treatment of your heart rate. You will be discharged to home hospice. Pending Studies at Discharge: No Stand-Alone Forms: Call Back Authorization, [facility], Work/School Release (Inpt) Medications and DC Order Prescriptions: New metronidazole [Flagyl] 500 mg tablet 500 mg PO Q6H 3 Days Qty: 12 RF: 0 Continued levothyroxine 125 mcg capsule 125 mcg PO DAILY Qty: 90 RF: 3 memantine 5 mg tablet 5 mg PO BID Qty: 180 RF: 3 oxycodone-acetaminophen 10-325 mg tablet 1 tab PO Q4H PRN (Reason: pain) Qty: 60 RF: 0 lorazepam 2 mg/mL concentrate 4 - 8 mg PO Q8H PRN (Reason: anxiety) RF: 0 donepezil 5 mg tablet 5 mg PO QAM RF: 0 mirtazapine 15 mg tablet,disintegrating 15 mg PO HS RF: 0 docusate sodium 100 mg Capsule 100 mg PO DAILY RF: 0 Discharge Orders: Discharge Order (Routine); Ordered 04/17/19 Ordered By: Jayne Ley Admission Data Admit Date/Time: 04/13/19 09:18 Attending Provider: Cameron Pool Admit Provider: Chandrakant Freeman Primary Care Provider: Asim Davis III Other Providers: [place] ; Chandrakant Freeman ; Julius Lim Other Interventions: Discharge Summary Assessment (RN) Last Done: 04/17/19 13:18 Supervising Physician Co-Signing Physician Notes Patient seen and examined with PGY-1 Dr. Ley. Agree with hospital course, exam findings, and plan of care as outlined by Dr. Ley. In brief, Ms. Diamond is a 78 year old female with history of severe/end-stage Alzheimer's dementia admitted with abdomina pain secondary to severe constipation. She is not conversation and unable to obtain meaningful history from her. She has two daughters who are at the bedside this morning. At this point, family is most interested in quality of life and are interested in hospice services at home. Home hospice services arranged. Appreciate care management assistance with this. Delirium. Suspect that this will improve once she is back in a familiar surrounding. Constipation. Resolved. On Percocet for knee pain. Can decrease to 1 tab per day if she does not seem to be having pain. Can increase back up to BID if needed. Titrate miralax to prevent OIC. Mild proctitis. Finish flagyl course--3 more days. End stage dementia: Would recommend discontinuing donepezil and mirtazapine as both of these medications will not have any meaningful benefit at this stage of her dementia. Other chronic medical issues stable, home medications continued. Dispo: home with home hospice today. I personally spent 35 minutes discharge planning for this patient.
[2019-04-17] MEDS: cefTRIAXone SODIUM 1,000 MG in DEXTROSE 5% 50 ML IV SCH (08:52)
[2019-04-17] MEDS: DONEPEZIL HCL 5 MG TAB PO SCH (09:58)
[2019-04-17] MEDS: MEMANTINE HCL 5 MG TAB PO SCH (09:58)
[2019-04-17] MEDS: ENOXAPARIN INJ 30 MG/0.3 ML SYR SQ SCH (09:59)
[2019-04-17] MEDS: SODIUM CHLORIDE 0.9% 1000ML 1,000 ML IV SCH (10:05)
[2019-04-17] MEDS ORDERED: POTASSIUM CHLORIDE 20 MEQ TABCR PO STA (10:18)
== END 2019-04-17 15:57 | disposition hospice, home (50) | DRG 394 ==
LOC: 2S 14:36 → ED 14:36 → SUATTDRO 19:26 → 2S 20:00 → 4W 04-12 12:24 → SUATTDRO 04-13 09:18